=== PATIENT | female | born 1965 | race Hispanic/Latino ===

== ENCOUNTER → 2019-09-04 | Day surgery (SDC) | payer OTHER ==
[~2019-09-04] MED LIST: AMLODIPINE BESYL5 MG PO; ATORVASTATIN CA10 MG PO; DICYCLOMINE HCL10 MG PO; FENTANYL CITRATE/PF 100MCG/2 ML INJ ONE; LOSARTAN POTAS100 MG PO; METOPROLOL TART50 MG PO; MIDAZOLAM HCL 2 MG/2 ML VIAL ONE; NOVOLIN N100 UNIT/1 SQ; PROPOFOL IV EMULSION 10 MG/ML 50 ML VIAL ONE; TRULICITY0.75 MG/0. SQ
--- OUTSIDE RECORDS SUMMARY | 2019-09-04 10:06 | XMS REPORT ---
Author Author Admin, [place] Organization Unknown Address Unknown Phone Unavailable PROBLEMS Condition Status Date Provider Notes Hemoccult positive stool active Patrizia Martel Colon Cancer Screening active Patrizia Martel Dysuria active Patrizia Martel Candidal vaginitis active Patrizia Martel Mammogram yearly screening active Patrizia Martel Annual exam active Patrizia Martel Foot pain, left active Patrizia Martel Obesity active Patrizia Martel Hyperlipidemia active Patrizia Martel Diabetes mellitus, type II active Patrizia Martel Shortness of breath active Patrizia Martel Back pain active Patrizia Martel Allergic rhinitis active Patrizia Martel Hypertension active Patrizia Martel ENCOUNTERS Date Type Provider Location Encounter Diagnosis - Ambulatory Encounter Public Health Services Provider Freda Wren [facility] Services UNK - Ambulatory Encounter Patrizia Martel [facility] UNK - Ambulatory [facility] - Ambulatory Encounter LS[facility] Lab Support [facility] UNK - Ambulatory Encounter Patrizia Martel [facility] UNK - Ambulatory Encounter Patrizia Martel [facility] UNK - Ambulatory Encounter Patrizia Markham [facility] UNK - Ambulatory Encounter Gisselle Short [facility] UNK - Ambulatory Encounter Public Health Services Provider Freda Wren [facility] UNK - Ambulatory Encounter Patrizia Martel [facility] UNK - Ambulatory Encounter Patrizia Martel [facility] UNK - Ambulatory Encounter Gisselle An [facility] UNK - Ambulatory Encounter Public Health Services Provider Freda Wren [facility] UNK - Ambulatory Encounter LSJ Care Coordination Desktop [facility] UNK - Ambulatory Encounter Patrizia Paredes [facility] UNK - Ambulatory Encounter Patrizia Martel [facility] UNK - Ambulatory Encounter Fax Status [facility] UNK - Ambulatory Encounter Fax Status [facility] UNK - Ambulatory Encounter Fax Status [facility] UNK - Ambulatory Encounter Fax Status [facility] UNK - Ambulatory Encounter Fax Status [facility] UNK - Ambulatory Encounter Patrizia Martel [facility] UNK - Ambulatory Encounter Patrizia Waterman [facility] UNK - Ambulatory En[facility] - Ambulatory Encounter Josie Sabas [facility] UNK - Ambulatory Encounter Viki Pallavi Martel [facility] UNK - Ambulatory Encounter Gisselle Derw Pallavi [facility] UNK - Ambulatory Encounter Ashley Markham [facility] UNK - Ambulatory Encounter Patrizia Obregon [facility] Hemoccult positive stool - Ambulatory Encounter Patrizia Martel [facility] UNK - Ambulatory Encounter LSJ Lab Support Desktop [facility] Patrizia Martel [facility] UNK - Ambulatory Encounter Mera [facility] UNK - Ambulatory Encounter Mera [facility] UNK - Ambulatory Encounter Jesica Dee [facility] Adult Medicine UNK - Ambulatory Encounter Patrizia Paredes MedAdherence [facility] UNK - Ambulatory Encounter Patrizia Martel [facility] UNK - Ambulatory Encounter Patrizia Martel [facility] UNK - Ambulatory Encounter Patrizia Martel [facility] UNK - Ambulatory Encounter LSJ Lab Support Desktop [facility] Patrizia Martel [facility] UNK - Ambulatory Encounter LSJ Lab Support Desktop [facility] Patrizia Martel [facility] UNK - Ambulatory Encounter Patrizia Paredes [facility] UNK - Ambulatory Encounter LSJ Lab Support Desktop Dedra Martel [facility] UNK - Ambulatory Encounter Patrizia Martel [facility] UNK - Ambulatory Encounter Patrizia Yanes [facility] Annual examMammogram yearly screeningCandidal vaginitisDysuriaColon Cancer Screening - Ambulatory Encounter Gisselle An [facility] UNK - Ambulatory Encounter Patrizia Martel [facility] UNK - Ambulatory Encounter Patrizia Martel [facility] UNK - Ambulatory Encounter Noemy [facility] UNK - Ambulatory Encounter Noemy [facility] UNK - Ambulatory Encounter Noemy [facility] UNK - Ambulatory Encounter Patrizia Martel [facility] UNK - Ambulatory Encounter Patrizia Martel [facility] UNK - Ambulatory Encounter Patrizia Castelan [facility] UNK - Ambulatory Encounter Pinky Lechuga [facility] UNK - Ambulatory Encounter Pinky Lechuga [facility] UNK - Ambulatory Encounter Patrizia Martel [facility] UNK - Ambulatory Encounter Patrizia Sernarera [facility] Foot pain, left - Ambulatory Encounter Tomeka Tahmina [facility] UNK - Ambulatory Encounter Tomekaviv Martel [facility] UNK - Ambulatory Encounter [facility]counter Patrizia Martel [facility] UNK - Ambulatory Encounter Mary Farias [facility] UNK - Ambulatory Encounter Patrizia Gay [facility] Obesity - Ambulatory Encounter Jen Jarrett [facility] UNK - Ambulatory Encounter [facility] - Ambulatory Encounter Jen Farias [facility] UNK - Ambulatory Encounter Jen Jarrett [facility] UNK - Ambulatory Encounter Patrizia Martel [facility] UNK - Ambulatory Encounter Patrizia Shirley [facility] UNK - Ambulatory Encounter Fax Status [facility] UNK - Ambulatory Encounter Fax Status [facility] UNK - Ambulatory Encounter [facility] - Ambulatory Encounter Patrizia Martel [facility] Hyperlipidemia - Ambulatory Encounter Patrizia Martel [facility] Diabetes mellitus, type II - Ambulatory Encounter Patrizia Martel [facility] UNK - Ambulatory Encounter LSJ Lab Support Desktop LinkDiaz Martel [facility] UNK - Ambulatory Encounter Patrizia Martel [facility] UNK - [facility] HypertensionAllergic rhinitisBack painShortness of breath - Ambulatory Encounter Toshia Saez [facility] UNK - Ambulatory Encounter Pinky Lechuga [facility] UNK - Ambulatory Encounter Pinky Lechuga [facility] UNK - Ambulatory Encounter Jaylin Bills [facility] Adult Medicine UNK - Ambulatory Encounter Jaylin Bills [facility] Adult Medicine UNK - Ambulatory Encounter [facility] Ambulatory Encounter Cheondoism Preload [facility] UNK - Ambulatory Encounter Cheondoism Preload [facility] UNK - Ambulatory Encounter Cheondoism Preload [facility] UNK - Ambulatory Encounter Cheondoism Preload [facility] UNK - Ambulatory Encounter Cheondoism Preload [facility] UNK - Ambulatory Encounter Cheondoism Preload [facility] - Ambulatory Encounter [place] [facility] - Ambulatory Encounter Cheondoism Preload [facility] - Ambulatory Encounter Cheondoism Preload [facility] UNK - Ambulatory Encounter Cheondoism Preload [facility] UNK - Ambulatory Encounter Cheondoism Preload [facility] UNK - Ambulatory Encounter Cheondoism Preload [facility] UNK - Ambulatory Encounter Cheondoism Preload [facility] UNK - Ambulatory Encounter Cheondoism Preload [facility] UNK - Ambulatory Encounter Cheondoism Preload [facility] UNK - Ambulatory Encounter Cheondoism Preload [facility] UNK - Ambulatory Encounter Cheondoism Preload [facility] UNK - Ambulatory Encounter Cheondoism Preload [facility] UNK - Ambulatory Encounter Cheondoism Preload [facility] UNK - Ambulatory Encounter Cheondoism Preload [facility] UNK - Ambulatory Encounter Cheondoism Preload [facility] UNK - Ambulatory Encounter Cheondoism Preload [facility] UNK - Ambulatory Encounter Cheondoism Preload [facility] UNK - Ambulatory Encounter Cheondoism Preload [facility] UNK - Ambulatory Encounter Cheondoism Preload [facility] UNK - Ambulatory Encounter Cheondoism Preload [facility] UNK - Ambulatory Encounter Cheondoism Preload [facility] UNK - Ambulatory Encounter Cheondoism Preload [facility] UNK - Ambulatory Encounter Cheondoism Preload [facility] UNK - Ambulatory Encounter Cheondoism Preload [facility] UNK - Ambulatory Encounter Cheondoism Preload [facility] UNK - Ambulatory Encounter Cheondoism Preload [facility] [place] [facility] UNK - Ambulatory Encounter Cheondoism Preload [facility] UNK - Ambulatory Encounter Cheondoism Preload [facility] UNK - Ambulatory Encounter Cheondoism Preload [facility] UNK - Ambulatory Encounter Cheondoism Preload [facility] UNK - Ambulatory Encounter Cheondoism Preload [facility] UNK - Ambulatory Encounter Cheondoism Preload [facility] UNK - Ambulatory Encounter Cheondoism Preload [facility] UNK - Ambulatory Encounter Cheondoism Preload [facility] UNK - Ambulatory Encounter Cheondoism Preload [facility] UNK - Ambulatory Encounter Cheondoism Preload [facility] UNK - Ambulatory Encounter Cheondoism Preload [facility] UNK - Ambulatory Encounter Cheondoism Preload [facility] UNK - Ambulatory Encounter Cheondoism Preload [facility] UNK - Ambulatory Encounter Cheondoism Preload [facility] [place] [facility] UNK - Ambulatory Encounter Cheondoism Preload [facility] UNK - Ambulatory Encounter Cheondoism Preload [facility] UNK - Ambulatory Encounter Cheondoism Preload [facility] UNK - Ambulatory Encounter Cheondoism Preload [facility] UNK - Ambulatory Encounter Cheondoism Preload [facility] UNK - Ambulatory Encounter Cheondoism Preload [facility] UNK - Ambulatory Encounter Cheondoism Preload [facility] UNK - Ambulatory Encounter Cheondoism Preload [facility] [place] [facility] UNK - Ambulatory Encounter Cheondoism Preload [facility] UNK - Ambulatory Encounter Cheondoism Preload [facility] UNK - Ambulatory Encounter Cheondoism Preload [facility] UNK - Ambulatory Encounter Cheondoism Preload [facility] UNK - Ambulatory Encounter Cheondoism Preload [facility] UNK - Ambulatory Encounter Cheondoism Preload [facility] [place] [facility] UNK - Ambulatory Encounter Cheondoism Preload [facility] UNK - Ambulatory Encounter Cheondoism Preload [facility] UNK - Ambulatory Encounter Cheondoism Preload [facility] UNK - Ambulatory Encounter Cheondoism Preload [facility] UNK - Ambulatory Encounter Cheondoism Preload [facility] UNK - Ambulatory Encounter Cheondoism Preload [facility] UNK - Ambulatory Encounter Cheondoism Preload [facility] UNK - Ambulatory Encounter Cheondoism Preload [facility] UNK - Ambulatory Encounter Cheondoism Preload [facility] UNK - Ambulatory Encounter Cheondoism Preload [facility] UNK - Ambulatory Encounter Cheondoism Preload [facility] UNK - Ambulatory Encounter Cheondoism Preload [facility] UNK - Ambulatory Encounter Cheondoism Preload [facility] UNK - Ambulatory Encounter Cheondoism Preload [facility] UNK - Ambulatory Encounter Cheondoism Preload [facility] UNK - Ambulatory Encounter Cheondoism Preload [facility] UNK - Ambulatory Encounter Cheondoism Preload [facility] UNK - Ambulatory Encounter Cheondoism Preload [facility] UNK - Ambulatory Encounter Cheondoism Preload [facility] UNK - Ambulatory Encounter Cheondoism Preload [facility] UNK - Ambulatory Encounter Cheondoism Preload [facility] UN[facility] VITAL SIGNS No Information Available ALLERGIES Allergy Name Onset Date Reaction Criticality Status ATORVASTATIN leg/muscle pain High Criticality active LOVASTATIN Leg/Muscle Pains High Criticality active REASON FOR REFERRAL Start Date - End Date Service - Endocrinology - Adult - Gastroenterology - External - Mammogram - Screening RESULTS Date Observation Value Provider Reference Range Interpretation Location urine culture Escherichia coli [facility] Abnormal " bacteria, urine microscopy Few [facility] None seen/Few " mucus on urinalysis Present [facility] Not Estab. " cast type, urinalysis Hyaline casts [facility] N/A " casts, urine Present [facility] None seen Abnormal " epithelial cells, urine >10 [facility] 0 - 10 Abnormal " RBC, Urine 0-2 /hpf [facility] 0 - 2 " WBC urine on microscopy >30 /hpf [facility] 0 - 5 Abnormal " urinalysis, microscopic examination See below: [facility] " nitrate, urine Negative [facility] Negative " urobilinogen, urine, semiquantitative (dipstick) 0.2 [facility] 0.2-1.0 " bilirubin, urine Negative [facility] Negative " ketones, urine, by test strip Negative [facility] Negative " glucose, urine, semiquantitative Negative [facility] Negative " protein, urine, semiquantitative (dipstick) Negative [facility] Negative/Trace " leukocyte esterase, urine, by dipstick 3+ [facility] Negative Abnormal " appearance, urine Cloudy [facility] Clear Abnormal " urine color Yellow [facility] Yellow " pH, urine, semiquantitative 5.5 [facility] 5.0-7.5 " specific gravity, body fluid 1.016 [facility] 1.005-1.030 Neisseria gonorrhoeae DNA probe Negative [facility] Negative " chlamydia DNA probe Negative [facility] Negative thyroid stimulating hormone, serum 1.690 u[iU]/mL [facility] 0.450-4.500 " hepatitis C antibody, serum <0.1 [facility] 0.0-0.9 " HIV-CMIA (Chemiluminescent Microparticle Immuno Assay) Non Reactive [facility] Non Reactive " rapid plasma reagin antibody, serum Non Reactive [facility] Non Reactive " hemoglobin A1C, blood, as % of total hemoglobin 11.2 % [facility] 4.8-5.6 High " microalbumin/creatinine ratio, urine 5.2 MG/G CREAT [facility] 0.0-30.0 " microalbumin/total urine volume 3.5 mg/L [facility] Not Estab. " creatinine, random, urine 67.2 mg/dL [facility] Not Estab. " LDL cholesterol, serum 113 mg/dL [facility] 0-99 High " very low density lipoproteins 57 mg/dL [facility] 5-40 High " HDL cholesterol, serum 33 mg/dL [facility] >39 Low " triglyceride, serum, fasting 283 mg/dL [facility] 0-149 High " cholesterol, serum 203 mg/dL [facility] 100-199 High " bacteria, urine microscopy None seen [facility] None seen/Few " mucus on urinalysis Present [facility] Not Estab. " epithelial cells, urine 0-10 [facility] 0 - 10 " RBC, Urine 0-2 /hpf [facility] 0 - 2 " WBC urine on microscopy 0-5 /hpf [facility] 0 - 5 " microscopic exam See below: [facility] " urinalysis, microscopic examination MICRON [facility] " nitrate, urine Negative [facility] Negative " urobilinogen, urine, semiquantitative (dipstick) 0.2 [facility] 0.2-1.0 " bilirubin, urine Negative [facility] Negative " ketones, urine, by test strip Negative [facility] Negative " glucose, urine, semiquantitative 3+ [facility] Negative Abnormal " protein, urine, semiquantitative (dipstick) Negative [facility] Negative/Trace " leukocyte esterase, urine, by dipstick Negative [facility] Negative " appearance, urine Clear [facility] Clear " urine color Yellow [facility] Yellow " pH, urine, semiquantitative 5.5 [facility] 5.0-7.5 " specific gravity, body fluid >=1.030 [facility] 1.005-1.030 Abnormal " alanine aminotransferase (SGPT), serum 28 1/L [facility] 0-32 " aspartate aminotransferase (SGOT), serum 28 1/L [facility] 0-40 " alkaline phosphatase, serum 171 1/L [facility] 39-117 High " bilirubin, serum, total 0.3 mg/dL [facility] 0.0-1.2 " albumin/globulin ratio, serum 1.4 [facility] 1.2-2.2 " globulin, serum 2.8 [facility] 1.5-4.5 " albumin, serum 3.9 g/dL [facility] 3.5-5.5 " protein, total, serum 6.7 g/dL [facility] 6.0-8.5 " calcium, serum 8.7 mg/dL [facility] 8.7-10.2 " carbon dioxide, venous blood 19 mmol/L [facility] 20-29 Low " chloride, serum 107 mmol/L [facility] 96-106 High " potassium, serum 3.7 mmol/L [facility] 3.5-5.2 " sodium, serum 141 mmol/L [facility] 134-144 " urea nitrogen/creatinine ratio, serum 15 [facility] 9-23 " eGFR if 76 mL/min/((173/100).m2) [facility] >59 " Estimated Glomerular Filtration Rate (calc) 66 mL/min/((173/100).m2) [facility] >59 " creatinine, serum 0.97 mg/dL [facility] 0.57-1.00 " urea nitrogen, blood 15 mg/dL [facility] 6-24 " blood glucose, random 277 mg/dL [facility] 65-99 High " immature granulocytes, percentage of total cells, blood 0 % [facility] Not Estab. " basophil count, absolute 0.0 x10E3/uL [facility] 0.0-0.2 " Eosinophil Absolute Count 0.1 X10E3/UL [facility] 0.0-0.4 " monocyte count, blood, automated 0.4 X10E3/UL [facility] 0.1-0.9 " lymphocyte count, blood, automated 2.1 X10E3/UL [facility] 0.7-3.1 " Absolute Neutrophils 5.7 X10E3/UL [facility] 1.4-7.0 " basophils as percent of blood leukocytes 0 % [facility] Not Estab. " eosinophils as percent of blood leukocytes 2 % [facility] Not Estab. " monocytes as percent of blood leukocytes 5 % [facility] Not Estab. " lymphocytes as percent of blood leukocytes 25 % [facility] Not Estab. " neutrophils as percent of blood leukocytes 68 % [facility] Not Estab. " platelet count 225 X10E3/UL [facility] 150-450 " red blood cell distribution width 13.6 % [facility] 12.3-15.4 " mean corpuscular hemoglobin concentration, RBC 32.0 G/DL [facility] 31.5-35.7 " mean corpuscular hemoglobin, RBC 29.3 pg [facility] 26.6-33.0 " mean corpuscular volume, RBC 92 fL [facility] 79-97 " hematocrit, blood 40.0 % [facility] 34.0-46.6 " hemoglobin, blood 12.8 g/dL [facility] 11.1-15.9 " erythrocyte (RBC) count 4.37 X10E6/UL [facility] 3.77-5.28 " leukocyte count, blood 8.4 X10E3/UL [facility] 3.4-10.8 blood glucose, random 225 mg/dL Gabriella Rios blood glucose, random 124 mg/dL [facility] blood glucose, random 137 mg/dL [facility] thyroid stimulating hormone, serum 1.590 u[iU]/mL [facility] 0.450-4.500 " hemoglobin A1C, blood, as % of total hemoglobin 6.6 % [facility] 4.8-5.6 High " microalbumin/creatinine ratio, urine 73.2 MG/G CREAT [facility] 0.0-30.0 High " microalbumin/total urine volume 58.8 mg/L [facility] Not Estab. " creatinine, random, urine 80.3 mg/dL [facility] Not Estab. " LDL cholesterol, serum 145 mg/dL [facility] 0-99 High " very low density lipoproteins 25 mg/dL [facility] 5-40 " HDL cholesterol, serum 43 mg/dL [facility] >39 " triglyceride, serum, fasting 127 mg/dL [facility] 0-149 " cholesterol, serum 213 mg/dL [facility] 100-199 High " alanine aminotransferase (SGPT), serum 35 1/L [facility] 0-32 High " aspartate aminotransferase (SGOT), serum 37 1/L [facility] 0-40 " alkaline phosphatase, serum 125 1/L [facility] 39-117 High " bilirubin, serum, total 0.7 mg/dL [facility] 0.0-1.2 " albumin/globulin ratio, serum 1.5 [facility] 1.1-2.5 " globulin, serum 3.1 [facility] 1.5-4.5 " albumin, serum 4.6 g/dL [facility] 3.5-5.5 " protein, total, serum 7.7 g/dL [facility] 6.0-8.5 " calcium, serum 9.0 mg/dL [facility] 8.7-10.2 " carbon dioxide, venous blood 26 mmol/L [facility] 18-29 " chloride, serum 103 mmol/L [facility] 97-108 " potassium, serum 4.2 mmol/L [facility] 3.5-5.2 " sodium, serum 145 mmol/L [facility] 134-144 High " urea nitrogen/creatinine ratio, serum 16 [facility] 9-23 " eGFR if 121 mL/min/((173/100).m2) [facility] >59 " Estimated Glomerular Filtration Rate (calc) 105 mL/min/((173/100).m2) [facility] >59 " creatinine, serum 0.61 mg/dL [facility] 0.57-1.00 " urea nitrogen, blood 10 mg/dL [facility] 6-24 " blood glucose, random 114 mg/dL [facility] 65-99 High " immature granulocytes, percentage of total cells, blood 0 % [facility] " basophil count, absolute 0.0 x10E3/uL [facility] 0.0-0.2 " Eosinophil Absolute Count 0.2 X10E3/UL [facility] 0.0-0.4 " monocyte count, blood, automated 0.3 X10E3/UL [facility] 0.1-0.9 " lymphocyte count, blood, automated 2.1 X10E3/UL [facility] 0.7-3.1 " Absolute Neutrophils 4.6 X10E3/UL [facility] 1.4-7.0 " basophils as percent of blood leukocytes 0 % [facility] " eosinophils as percent of blood leukocytes 2 % [facility] " monocytes as percent of blood leukocytes 4 % [facility] " lymphocytes as percent of blood leukocytes 29 % [facility] " neutrophils as percent of blood leukocytes 65 % [facility] " platelet count 233 X10E3/UL [facility] 150-379 " red blood cell distribution width 13.8 % [facility] 12.3-15.4 " mean corpuscular hemoglobin concentration, RBC 33.6 G/DL [facility] 31.5-35.7 " mean corpuscular hemoglobin, RBC 31.8 pg [facility] 26.6-33.0 " mean corpuscular volume, RBC 95 fL [facility] 79-97 " hematocrit, blood 42.0 % [facility] 34.0-46.6 " hemoglobin, blood 14.1 g/dL [facility] 11.1-15.9 " erythrocyte (RBC) count 4.44 X10E6/UL [facility] 3.77-5.28 " leukocyte count, blood 7.1 X10E3/UL [facility] 3.4-10.8 HISTORY OF IMMUNIZATIONS No Information Available HISTORY OF MEDICATION USE Medication Instructions Dates Provider Comments BACTRIM DS 800-160 MG ORAL TABLET 1 tab by mouth twice a day for 5 days for UTI Patrizia Martel [facility] OMEGA-3 KRILL OIL 300 MG ORAL CAPSULE 2 tablet by mouth three times daily for cholesterol Patrizia Martel LORATADINE 10 MG ORAL TABLET 1 By Mouth once a day as needed for allergies Patrizia Martel NOVOLIN N 100 UNIT/ML SUBCUTANEOUS SUSPENSION 40 units in the AM and 40 units in the PM for diabetes Patrizia Martel METOPROLOL TARTRATE 50 MG ORAL TABLET 1 by mouth twice a day Patrizia Martel LOTENSIN 10 MG ORAL TABLET 1 By Mouth Every Day - Patrizia Martel AMLODIPINE BESYLATE 5 MG ORAL TABLET 1 tablet by mouth once daily - Patrizia Martel LOVASTATIN 10 MG ORAL TABLET 1 by mouth every night - Patrizia Martel ACCU-CHEK FASTCLIX LANCETS check blood glucose once daily Patrizia Martel ACCU-CHEK FASTCLIX LANCET KIT check blood glucose once daily Patrizia Martel ACCU-CHEK LOUISA IN VITRO STRIP check blood glucose once daily Patrizia Martel ACCU-CHEK LOUISA PLUS w/Device KIT check blood glucose once daily Patrizia Martel METFORMIN HCL ER (MOD) 1000 MG ORAL TABLET EXTENDED RELEASE 24 HOUR 1 tablet by mouth twice daily for diabetes Patrizia Martel PROAIR HFA 108 (90 Base) MCG/ACT INHALATION AEROSOL SOLUTION 2 puffs every 4 - 6 hours as needed Patrizia Martel NAPROXEN DR 500 MG ORAL TABLET DELAYED RELEASE 1 tablet by mouth twice daily as needed for pain - Patrizia Martel LOSARTAN POTASSIUM 100 MG ORAL TABLET 1 tablet by mouth once daily Patrizia Martel HYDROCHLOROTHIAZIDE 25 MG ORAL TABLET 1 tablet by mouth daily - Patrizia Martel SOCIAL HISTORY Date Observation Value Provider drug use, illicit Never Ashley Markham " alcohol use Previously Ashley Markham " social history E&M . Not homeless. Born in [facility]. City: [facility]. State: [place]. Employed full-time. [employer]. Highest education level: none-8th grade. Gender identity: Female. Gender of partner(s): male. Ashley Markham " social history reviewed E&M reviewed today Ashley Rashi " passive cigarette smoke exposure No Ashley Markham " smoking status former smoker Ashley Markham " Exercise Program Referral T Ashley Rashi " Weight Management Counseling Provided T Ashley Markham " Nutrition intervention T Ashley Markham time of call 02/21/2019 9:50 AM Jus Waterman Lung Cancer Screening - 15 year tobacco use history Yes Viki Pallavi Exercise Program Referral T Gabriella Rios " Weight Management Counseling Provided T Gabriella Rios " Nutrition intervention T Gabriella Rios " drug use, illicit Never Gabriella Rios " alcohol use Previously Gabriella Rios " social history E&M . Not homeless. Born in [facility]. City: [facility]. State: [place]. Employed full-time. [employer]. Highest education level: none-8th grade. Gender identity: Female. Gender of partner(s): male. Gabriella Rios " social history reviewed E&M reviewed today Gabriella Rios " passive cigarette smoke exposure No Gabriella Rios " smoking status former smoker Gabriella Rios Exercise Program Referral Yunior Martel " Weight Management Counseling Provided T Patrizia Martel " Nutrition intervention T Patrizia Martel " Patient was counseled for sexual safety Counseled for sexual health safety. Patrizia Martel " is there any chance that you could be ? No Jennifer Peacock " passive cigarette smoke exposure No Jennifer Peacock " alcohol use Previously Jennifer Peacock " smoking status former smoker Jennifer Peacock " social history E&M . Not homeless. Born in [facility]. City: [facility]. State: [place]. Employed full-time. [employer]. Highest education level: none-8th grade. Gender identity: Female. Gender of partner(s): male. Jennifer Peacock " social history reviewed E&M reviewed today Jennifer Peacock " Exercise Program Referral T Gabriella Rios " Weight Management Counseling Provided Yunior Rios " Nutrition intervention T Gabriella Rios " drug use, illicit Never Gabriella Gabriel " alcohol use Previously Gabriella Gabriel " social history E&M . Not homeless. Born in [facility]. City: [facility]. State: [place]. Employed full-time. [employer]. Highest education level: none-8th grade. Gender identity: Female. Gender of partner(s): male. Gabriella Gabriel " social history reviewed E&M reviewed today Gabriella Rios " passive cigarette smoke exposure No Gabriella Rios " smoking status former smoker Gabriella Rios drug use, illicit Never Teresa Gay " alcohol use Currently Teresa Gay " social history E&M . Not homeless. Born in [facility]. City: [facility]. State: [place]. Employed full-time. [employer]. Highest education level: none-8th grade. Gender identity: Female. Gender of partner(s): male. Teresa Gay " social history reviewed E&M reviewed today Teresa Gay " passive cigarette smoke exposure No Teresa Gay " smoking status former smoker Teresa Gay Exercise Program Referral Yunior Martel " Weight Management Counseling Provided Yunior Martel " Nutrition intervention Yunior Martel " drug use, illicit Never Teresa Gay " alcohol use Currently Teresa Gay " social history E&M . Not homeless. Born in [facility]. City: [facility]. State: [place] Employed full-time. [employer]. Highest education level: none-8th grade. Gender identity: Female. Gender of partner(s): male. Teresa Gay " social history reviewed E&M reviewed today Teresa Gay " passive cigarette smoke exposure No Teresa Gay " smoking status former smoker Teresa Gay sex at female Jeannine Shirley " social history E&M . Not homeless. Born in [facility]. City: [facility]. State: [place] Employed full-time. [employer]. Highest education level: none-8th grade. Gender identity: Female. Gender of partner(s): male. Jeannine Shirley " social history reviewed E&M reviewed today Jeannine Shirley " drug use, illicit Never Jeannine Shirley " alcohol use Currently Jeannine Shirley " passive cigarette smoke exposure No Jeannine Shirley " smoking status former smoker Jeannine Shirley social history E&M . Not homeless. Born in [facility]. City: [facility]. State: [place] Employed full-time. [employer]. Highest education level: none-8th grade. Gender identity: Female. Gender of partner(s): male. Gabriella Rios " Occupation #1 cook Gabriella Gabriel " patient considered to be homeless No Gabriella Rios " drug use, illicit Never Gabriella Rios " alcohol use, frequency holidays/special occasions only Gabriella Rios " alcohol use Currently Gabriella Rios " social history reviewed E&M reviewed today Gabriella Rios " passive cigarette smoke exposure No Gabriella Rios " smoking status former smoker Gabriella Rios smoking status Current some day smoker [employer] smoking status Current some day smoker [employer] smoking status Current some day smoker [employer] FUNCTIONAL STATUS No Information Available MENTAL STATUS Date Observation Value Provider assessment of judgment and insight E&M limited Patrizia Martel " mental status examination: orientation E&M oriented to time, place, and person Patrizia Martel " assessment of mood and affect E&M pleasant Patrizia Martel " Generalized Anxiety Disorder Questionnaire - Question 2 0 Ashley Markham " Generalized Anxiety Disorder Questionnaire - Question 1 0 Ashley Markham assessment of judgment and insight E&M limited Patrizia Martel " mental status examination: orientation E&M oriented to time, place, and person Patrizia Martel " assessment of mood and affect E&M pleasant Patrizia Martel " Generalized Anxiety Disorder Questionnaire - Question 2 0 Gabriella Farleyrez " Generalized Anxiety Disorder Questionnaire - Question 1 0 Gabriella Rios assessment of judgment and insight E&M limited Patrizia Martel " mental status examination: orientation E&M oriented to time, place, and person Patrizia Martel " assessment of mood and affect E&M pleasant Patrizia Martel " Generalized Anxiety Disorder Questionnaire - Question 2 0 Jennifer Peacock " Generalized Anxiety Disorder Questionnaire - Question 1 1 Jennifer Peacock assessment of judgment and insight E&M intact Patrizia Martel " mental status examination: orientation E&M oriented to time, place, and person Patrizia Martel " assessment of mood and affect E&M no depression, anxiety, or agitation Patrizia Martel " If any problems checked, how difficult have these problems made it for you to do your work, take care of things at home, or get along with other people (GAD7, question 8) 0 Gabriella Rios " Generalized Anxiety Disorder Questionnaire - Question 7 0 Gabriella Rios " Generalized Anxiety Disorder Questionnaire - Question 6 0 Gabriella Rios " Generalized Anxiety Disorder Questionnaire - Question 5 1 Gabriella Rios " Generalized Anxiety Disorder Questionnaire - Question 4 1 Gabriella Rios " Generalized Anxiety Disorder Questionnaire - Question 3 0 Gabriella Rios " Generalized Anxiety Disorder Questionnaire - Question 2 0 Gabriella Rios " Generalized Anxiety Disorder Questionnaire - Question 1 1 Gabriella Rios assessment of judgment and insight E&M intact Patrizia Martel " assessment of mood and affect E&M no depression, anxiety, or agitation Patrizia Tahmina " Generalized Anxiety Disorder Questionnaire - Question 2 0 Teresa Gay " Generalized Anxiety Disorder Questionnaire - Question 1 0 Teresa Gay assessment of judgment and insight E&M intact Patrizia Martel " assessment of mood and affect E&M no depression, anxiety, or agitation Patrizia Tahmina " Generalized Anxiety Disorder Questionnaire - Question 2 0 Teresa Gay " Generalized Anxiety Disorder Questionnaire - Question 1 0 Teresa Gay assessment of judgment and insight E&M intact Patrizia Martel " assessment of mood and affect E&M no depression, anxiety, or agitation Patrizia Martel " Generalized Anxiety Disorder Questionnaire - Question 2 0 Jeannine Shirley " Generalized Anxiety Disorder Questionnaire - Question 1 0 Jeannine Casper assessment of judgment and insight E&M intact Patrizia Martel " assessment of mood and affect E&M no depression, anxiety, or agitation Patrizia Martel " Generalized Anxiety Disorder Questionnaire - Question 2 0 Gabriella Rios " Generalized Anxiety Disorder Questionnaire - Question 1 0 Gabriella Rios MEDICAL EQUIPMENT No Information Available FAMILY HISTORY No Information Available INSURANCE PROVIDERS Payer name Policy type / Coverage type Covered alliance party ID [employer] Other [id number] Sliding Fee - Cat 3 Commercial insurance company [employer] Other [id number] Sliding Fee Scale Commercial insurance company [id number] ADVANCE DIRECTIVES No Information Available TREATMENT PLAN Date Name Urinalysis Complete w/reflex to Culture Gc/Ct/Trich Urinalysis Complete w/reflex to Culture RPR, Rfx Qn RPR/Confirm TP Pap w/HPV w rflx 16/18/45 (30+) TSH Rfx on Abnormal to Free T4 FIT- Fecal immunoassay test HCV Antibody HIV 1/2 ANTIGEN/ANTIBODY, FOURTH GENERATION W/RFL Microalb/Creat Ratio, Randm Ur Hemoglobin A1c Lipid Panel Comp. Metabolic Panel (14) CBC With Differential/Platelet TSH Microalb/Creat Ratio, Randm Ur Hemoglobin A1c Lipid Panel Comp. Metabolic Panel (14) CBC With Differential/Platelet - - l - Est Patient Exp Problem - 95616 General Patient Education Est Patient Exp Problem - 73520 Nurse/Nurse Coordinator Est Patient Well Exam (40 - 64 Yrs) - 20360 HEMOGLOBIN A1C - In House Glucose Stick Est Patient Exp Problem - 73460 Prescription Assistance (Non-HIV) Est Patient Exp Problem - 46934 Est Patient Exp Problem - 20185 Prescription Assistance Est Patient Exp Problem - 42263 Dental - Internal Vision New Patient Detailed - 76848 HISTORY OF PROCEDURES Procedure Date Procedure Name Provider Procedure Notes Status HEMOGLOBIN A1C - In House Patrizia Martel completed Glucose Stick Patrizia Martel completed GOALS No Information Available HEALTH CONCERNS No Information Available
--- OUTSIDE RECORDS SUMMARY | 2019-09-04 10:07 | XMS REPORT ---
Author Author Admin, Campo Organization Unknown Address Unknown Phone Unavailable PROBLEMS [...] Provider Location Encounter Diagnosis - Ambulatory Encounter [facility] Patrizia Martel [facility] UNK - Ambulatory Encounter Patrizia Markham [facility] UNK - Ambulatory Encounter Gisselle An [facility] UNK - Ambulatory Encounter Public Health Services Provider Freda Wren [facility] UNK - Ambulatory Encounter Patrizia Martel [facility] UNK - Ambulatory Encounter [facility] Encounter LSJ Lab Support Desktop LinkSidneynitin Martel [facility] UNK - Ambulatory Encounter Patrizia Martel [facility] UNK - Ambulatory Encounter Patrizia Martel [facility] UNK - [facility] Encounter Gisselle An [facility] UNK - Ambulatory Encounter Public Health Services Provider Freda Wren [facility] UNK - Ambulatory Encounter Patrizia Martel [facility] UNK - Ambulatory Encounter [facility] - [facility]ulatory Encounter Gisselle An [facility] UNK - Ambulatory Encounter Public Health Services Provider Freda Wren [facility] UNK - Ambulatory Encounter LSJ Care Coordination Desktop [facility] UN[facility] - Ambulatory En[facility] - Ambulatory Encounter Patrizia Martel [facility] UNK - Ambulatory Encounter Fax Status LinkLog[facility] UNK - Ambulatory Encounter Fax Status Link[facility] UNK - Ambulatory Encounter Fax Status [facility] UNK - Ambulatory Encounter Fax Status [facility] UNK - Ambulatory Encounter Fax Status [facility] UNK - Ambulatory Encounter Patrizia Martel [facility] UNK - Ambulatory Encounter Patrizia Gutierrez Waterman [facility] UNK - Ambulatory Encounter Josie Sabas [facility] UNK - Ambulatory Encounter Josie Sabas [facility] UNK - Ambulatory Encounter Viki Martel [facility] UNK - Ambulatory Encounter Gisselle Olivo [facility] UNK - Ambulatory Encounter Ashley Rashi [facility] UNK - Ambulatory Encounter Patrizia Obregon [facility] Hemoccult positive stool - Ambulatory Encounter Patrizia Martel [facility] UNK - Ambulatory Encounter LSJ Lab Support Desktop LinkLog Patrizia Martel [facility] UNK - Ambulatory Encounter Mera Sullivan [facility] UNK - Ambulatory Encounter Mera Sullivan [facility] UNK - Ambulatory Encounter Jesica Dee [facility] Medicine UNK - Ambulatory Encounter [facility]rizia Paredes [facility] - Ambulatory Encounter Patrizia Martel [facility] UNK - Ambulatory Encounter Patrizia Martel [facility] UNK - Ambulatory Encounter Patrizia Martel [facility] UNK - Ambulatory Encounter LSJ Lab Support Desktop LinkDiaz Martel [facility] UNK - Ambulatory Encounter LSJ Lab Support Desktop LinkSidneyic Patrizia Matrel [facility] UNK - Ambulatory En[facility]aredes [facility] - Ambulatory Encounter LSJ Lab Support Desktop LinkLogic Patrizia Martel [facility] UNK - Ambulatory Encounter Patrizia Martel [facility] UNK - Ambulatory Encounter Patrizia Yanes [facility] Annual examMammogram yearly screeningCandidal vaginitisDysuriaColon Cancer Screening - Ambulatory Encounter Gisselle An [facility] UNK - Ambulatory Encounter Patrizia Martel [facility] UNK - Ambulatory Encounter Patrizia Martel [facility] UNK - Ambulatory Encounter Noemy Salcedolory [facility] UNK - Ambulatory Encounter Noemy Salcedolory [facility] UNK - Ambulatory Encounter Noemy Salcedolory [facility] UNK - Ambulatory Encounter Patrizia Martel [facility] UNK - Ambulatory Encounter Patrizia Martel [facility] UNK - Ambulatory Encounter Patrizia Puentelory [facility] UNK - Ambulatory Encounter Pinky Lechuga [facility] UNK - Ambulatory Encounter Pinky Lechuga [facility] UNK - Ambulatory Encounter Patrizia Martel [facility] UNK - Amb[facility] Foot pain, left - Ambulatory Encounter Tomekaviv Martel [facility] UNK - Ambulatory Encounter Tomeka Tahmina [facility] UNK - Ambulatory Encounter Patrizia Mart[facility] - Ambulatory Encounter Patrizia Martel [facility] UNK - Ambulatory Encounter Mary Farias [facility] UNK - Ambulatory Encounter Patrizia Gay [facility] Obesity - Ambulatory Encounter Jen Farias [facility] UNK - Ambulatory Encounter Patrizia Martel [facility] - Ambulatory Encounter Jen Jarrett [facility] UNK - Ambulatory Encounter Jen Jarrett [facility] UNK - Ambulatory Encounter Patrizia Martel [facility] UNK - Ambulatory Encounter Patrizia Shirley [facility] UNK - Ambulatory Encounter Fax Status [facility] UNK - Ambulatory Encounter Fax Status [facility] UNK - Ambulatory Encounter Fax Status [facility] UNK - Ambulatory Encounter Patrizia Martel [facility] Hyperlipidemia - Ambulatory Encounter Patrizia Martel [facility] Diabetes mellitus, type II - Ambulatory Encounter Patrizia Martel [facility] UNK - Ambulatory Encounter LSJ Lab Support Desktop [facility] Patrizia Martel [facility] UNK - Ambulatory Encounter Patrizia Martel [facility] UNK - Ambulatory Encounter Patrizia Rios [facility] HypertensionAllergic rhinitisBack painShortness of breath - Ambulatory Encounter Toshia Saez [facility] UNK - Ambulatory Encounter Pinky Lechuga [facility] UNK - Ambulatory Encounter Pinky Lechuga [facility] UNK - Ambulatory Encounter Jaylin Bills [facility] Adult Medicine UNK - Ambulatory Encounter Jaylin Bills [facility] Adult Medicine UNK - Ambulatory Encounter Maria Simomns [facility] UNK - Ambulatory Encounter L[facility] - Ambulatory Encounter [facility] UNK - Ambulatory Encounter [facility] UNK - Ambulatory Encounter [facility] Preload [facility] UNK - Ambulatory Encounter Latter-Day Preload [facility] UNK - Ambulatory Encounter Latter-Day Preload LinkLogic [facility] UNK - Ambulatory Encounter Latter-Day Preload [facility]Log[facility] UNK - Ambulatory Encounter Latter-Day Preload [facility] UNK - Ambulatory Encounter Latter-Day Preload [facility] UNK - Ambulatory Encounter Latter-Day Preload [facility] UNK - Ambulatory Encounter Latter-Day Preload [facility] UNK - Ambulatory Encounter Latter-Day Preload [facility] UNK - Ambulatory Encounter Latter-Day Preload [facility]Log[facility] UNK - Ambulatory Encounter Latter-Day Preload [facility] UNK - Ambulatory Encounter Latter-Day Preload [facility] UNK - Ambulatory Encounter Latter-Day Preload [facility] UNK - Ambulatory Encounter Latter-Day Preload [facility] UNK - Ambulatory Encounter Latter-Day Preload [facility] UNK - Ambulatory Encounter Latter-Day Preload [facility] UNK - Ambulatory Encounter Latter-Day Preload [facility] UNK - Ambulatory Encounter Latter-Day Preload [facility] UNK - Ambulatory Encounter Latter-Day Preload [facility] UNK - Ambulatory Encounter Latter-Day Preload [facility] UNK - Ambulatory Encounter Latter-Day Preload [facility]Log[facility] UNK - Ambulatory Encounter Latter-Day Preload [facility] UNK - Ambulatory Encounter Latter-Day Preload [facility]Logic [facility] UNK - Ambulatory Encounter Latter-Day Preload [facility]ic [facility] UNK - Ambulatory Encounter Latter-Day Preload [facility]ic [facility] UNK - Ambulatory Encounter Latter-Day Preload LinkLogic [facility] UNK - Ambulatory Encounter Latter-Day Preload LinkLogic [facility] UNK - Ambulatory Encounter Latter-Day Preload LinkLogic [facility] UNK - Ambulatory Encounter Latter-Day Preload [facility] UNK - Ambulatory Encounter Latter-Day Preload LinkLogic [facility] UNK - Ambulatory Encounter Latter-Day Preload LinkLogic [facility] UNK - Ambulatory Encounter Latter-Day Preload LinkLogic [facility] UNK - Ambulatory Encounter Latter-Day Preload LinkLogic [facility] UNK - Ambulatory Encounter Latter-Day Preload LinkLogic [facility] UNK - Ambulatory Encounter Latter-Day Preload LinkLogic [facility] UNK - Ambulatory Encounter Latter-Day Preload LinkLogic [facility] UNK - Ambulatory Encounter Latter-Day Preload LinkLogic [facility] UNK - Ambulatory Encounter Latter-Day Preload LinkLogic [facility] UNK - Ambulatory Encounter Latter-Day Preload [facility]Logic [facility] UNK - Ambulatory Encounter Latter-Day Preload LinkLogic [facility] UNK - Ambulatory Encounter Latter-Day Preload [facility] UNK - Ambulatory Encounter Latter-Day Preload [facility]Logic [facility] UNK - Ambulatory Encounter Latter-Day Preload LinkLogic [facility] UNK - Ambulatory Encounter Latter-Day Preload [facility]Logic [facility] UNK - Ambulatory Encounter Latter-Day Preload [facility] UNK - Ambulatory Encounter Latter-Day Preload LinkLogic [facility] UNK - Ambulatory Encounter Latter-Day Preload [facility] UNK - Ambulatory Encounter Latter-Day Preload [facility] UNK - Ambulatory Encounter Latter-Day Preload Link[facility]ic [facility] UNK - Ambulatory Encounter Latter-Day Preload LinkLogic [facility] UNK - Ambulatory Encounter Latter-Day Preload LinkLogic [facility] UNK - Ambulatory Encounter Latter-Day Preload [facility] UNK - Ambulatory Encounter Latter-Day Preload Link[facility]ic [facility] UNK - Ambulatory Encounter Latter-Day Preload [facility] UNK - Ambulatory Encounter Latter-Day Preload [facility] UNK - Ambulatory Encounter Latter-Day Preload [facility] UNK - Ambulatory Encounter Latter-Day Preload [facility] UNK - Ambulatory Encounter Latter-Day Preload [facility] UNK - Ambulatory Encounter Latter-Day Preload [facility] UNK - Ambulatory Encounter Latter-Day Preload [facility] UNK - Ambulatory Encounter Latter-Day Preload [facility]Log[facility] UNK - Ambulatory Encounter Latter-Day Preload LinkLogic [facility] UNK - Ambulatory Encounter Latter-Day Preload [facility] UNK - Ambulatory Encounter Latter-Day Preload [facility] UNK - Ambulatory Encounter Latter-Day Preload [facility] UNK - Ambulatory Encounter Latter-Day Preload [facility]Log[facility] UNK - Ambulatory Encounter Latter-Day Preload [facility]Log[facility] UNK - Ambulatory Encounter Latter-Day Preload [facility] UNK - Ambulatory Encounter Latter-Day Preload [facility] UNK - Ambulatory Encounter Latter-Day Preload [facility] UNK - Ambulatory Encounter Latter-Day Preload [facility] UNK - Ambulatory Encounter Latter-Day Preload [facility]Log[facility] UNK - Ambulatory Encounter Latter-Day Preload [facility] UNK - Ambulatory Encounter Latter-Day Preload [facility] UNK - Ambulatory Encounter Latter-Day Preload [facility] UNK - Ambulatory Encounter Latter-Day Preload [facility] UNK - Ambulatory Encounter Latter-Day Preload [facility] UNK - Ambulatory Encounter Latter-Day Preload [facility] UNK VITAL SIGNS No Information Available ALLERGIES Allergy Name Onset Date Reaction Criticality Status ATORVASTATIN leg/muscle pain High Criticality active LOVASTATIN Leg/Muscle Pains High Criticality active REASON FOR REFERRAL Start Date - End Date Service - Endocrinology - Adult - Gastroenterology - External - Mammogram - Screening RESULTS Date Observation Value Provider Reference Range Interpretation Location hemoglobin A1C, blood, as % of total hemoglobin 10.8 % [facility] 4.8-5.6 High " alanine aminotransferase (SGPT), serum 22 1/L [facility] 0-32 " aspartate aminotransferase (SGOT), serum 21 1/L [facility] 0-40 " alkaline phosphatase, serum 153 1/L [facility] 39-117 High " bilirubin, serum, total 0.2 mg/dL [facility] 0.0-1.2 " albumin/globulin ratio, serum 1.2 [facility] 1.2-2.2 " globulin, serum 3.3 [facility] 1.5-4.5 " albumin, serum 3.9 g/dL [facility] 3.5-5.5 " protein, total, serum 7.2 g/dL [facility] 6.0-8.5 " calcium, serum 9.5 mg/dL [facility] 8.7-10.2 " carbon dioxide, venous blood 22 mmol/L [facility] 20-29 " chloride, serum 101 mmol/L [facility] 96-106 " potassium, serum 4.2 mmol/L [facility] 3.5-5.2 " sodium, serum 140 mmol/L [facility] 134-144 " urea nitrogen/creatinine ratio, serum 18 [facility] 9-23 " eGFR if 77 mL/min/((173/100).m2) [facility] >59 " Estimated Glomerular Filtration Rate (calc) 67 mL/min/((173/100).m2) [facility] >59 " creatinine, serum 0.95 mg/dL [facility] 0.57-1.00 " urea nitrogen, blood 17 mg/dL [facility] 6-24 " blood glucose, random 248 mg/dL [facility] 65-99 High blood glucose, random 291 mg/dL Elaine Pool urine culture Escherichia coli [facility] Abnormal " [...] Gabriella Rios blood glucose, random 124 mg/dL [facility] blood glucose, random 137 mg/dL [facility] thyroid stimulating hormone, serum [...] MEDICATION USE Medication Instructions Dates Provider Comments VASCEPA 1 GM ORAL CAPSULE 1 tablet by mouth twice daily for cholesterol Patrizia Martel BACTRIM DS 800-160 MG ORAL TABLET 1 tab by mouth twice a day for 5 days for UTI - Patrizia Martel [facility] OMEGA-3 KRILL OIL 300 MG ORAL CAPSULE 2 tablet by mouth three times daily for cholesterol Patrizia Martel LORATADINE 10 MG ORAL TABLET 1 By Mouth once a day as needed for allergies Patrizia Martel NOVOLIN N 100 UNIT/ML SUBCUTANEOUS SUSPENSION 45 units in the AM and 45 units in the PM for diabetes Patrizia Mratel METOPROLOL TARTRATE 100 MG ORAL TABLET 1 by mouth twice a day for blood pressure Patrizia Martel LOTENSIN 10 MG ORAL TABLET [...] tablet by mouth twice daily for diabetes - Patrizia Martel PROAIR HFA 108 (90 Base) [...] history E&M . Not homeless. Born in [facility]. City: [facility]. State: [place]. Employed full-time. [employer]. Highest education level: none-8th grade. Gender identity: Female. Gender of partner(s): male. Ashley Markham " social history reviewed E&M reviewed today Ashley Markham " passive cigarette smoke exposure No Ashley Markham " smoking status former smoker Ashley Markham " Exercise Program Referral T Ashley Markham " Weight Management Counseling Provided T Ashley Markham " Nutrition intervention T Ashley Markham drug use, illicit Never Ashley Markham " alcohol use Previously Ashley Markham " social history E&M . Not homeless. Born in [facility]. City: [facility]. State: [place] Employed full-time. [employer]. Highest education level: none-8th grade. Gender identity: Female. Gender of partner(s): male. Ashley Markham " social history reviewed E&M reviewed today Ashley Markham " passive cigarette smoke exposure No Ashley Markham " smoking status former smoker Ashley Markham " Exercise Program Referral T Ashley Markham " Weight Management Counseling Provided T Ashley Markham " Nutrition intervention T Ashley Markham time of call 02/21/2019 9:50 AM Jus Waterman Lung Cancer Screening - 15 year tobacco use history Yes Viki Olivo Exercise Program Referral T Gabriella Rios " Weight Management Counseling Provided T Gabriella Gabriel " Nutrition intervention T Gabriella Rios " drug use, illicit Never Gabriella Rios " alcohol use Previously Gabriella Rios " social history E&M . Not homeless. Born in [facility]. City: [facility]. State: [place]. Employed full-time. [employer]. Highest education level: none-8th grade. Gender identity: Female. Gender of partner(s): male. Gabriella Rios " social history reviewed E&M reviewed today Gabriella Rios " passive cigarette smoke exposure No Gabriella Gabriel " smoking status former smoker Gabriella Rios Exercise Program Referral T Patrizia Martel " Weight Management Counseling Provided Yunior Martel " Nutrition intervention Yunior Martel " Patient was counseled for sexual safety Counseled for sexual health safety. Patrizia Martel " is there any chance that you could be ? No Jennifer Peacock " passive cigarette smoke exposure No Jennifermelinda Peacock " alcohol use Previously Jennifer Peacock " smoking status former smoker Jennifer Peacock " social history E&M . Not homeless. Born in [facility]. City: [facility]. State: [place] Employed full-time. [employer]. Highest education level: none-8th grade. Gender identity: Female. Gender of partner(s): male. Jennifer Peacock " social history reviewed E&M reviewed today Jennifer Peacock " Exercise Program Referral T Gabriella Rios " Weight Management Counseling Provided T Gabriella Gabriel " Nutrition intervention T Gabriella Gabriel " drug use, illicit Never Gabriella Rios " alcohol use Previously Gabriella Rios " social history E&M . Not homeless. Born in [facility]. City: [facility]. State: [place] Employed full-time. [employer]. Highest education level: none-8th grade. Gender identity: Female. Gender of partner(s): male. Gabriella Rios " social history reviewed E&M reviewed today Gabriella Rios " passive cigarette smoke exposure No Gabriella Gabriel " smoking status former smoker Gabriella Rios drug use, illicit Never Teresa Gay " alcohol use Currently Teresa Gay " social history E&M . Not homeless. Born in [facility]. City: [facility]. State: [place] Employed full-time. [employer]. Highest education level: none-8th grade. Gender identity: Female. Gender of partner(s): male. Teresa Gay " social history reviewed E&M reviewed today Teresa Gay " passive cigarette smoke exposure No Teresa Gay " smoking status former smoker Teresa Sernarera Exercise Program Referral Yunior Martel " Weight Management Counseling Provided Yunior Martel " Nutrition intervention Yunior Martel " drug use, illicit Never Teresa Gay " alcohol use Currently Teresa Gay " social history E&M . Not homeless. Born in [facility]. City: [facility]. State: [place] Employed full-time. [employer]. Highest education level: none-8th grade. Gender identity: Female. Gender of partner(s): male. Teresa Gay " social history reviewed E&M reviewed today Teresa Gay " passive cigarette smoke exposure No Teresa Gay " smoking status former smoker Teresa Martinra sex at female Jeannine Shirley " social history E&M . Not homeless. Born in [facility]. City: [facility]. State: [place] Employed full-time. [employer]. Highest education level: none-8th grade. Gender identity: Female. Gender of partner(s): male. Jeannine Shirley " social history reviewed E&M reviewed today Jeannine Shirley " drug use, illicit Never Jeannine Casper " alcohol use Currently Jeannine Casper " passive cigarette smoke exposure No Jeannine Casper " smoking status former smoker Jeannine Casper social history E&M . Not homeless. Born in [facility]. City: [facility]. State: [place] Employed full-time. [employer]. Highest education level: none-8th grade. Gender identity: Female. Gender of partner(s): male. 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 No [...] [facility] smoking status Current some day smoker LinkLog smoking status Current some day smoker [facility] FUNCTIONAL STATUS No Information Available MENTAL STATUS Date Observation Value Provider assessment of mood and affect E&M pleasant Patrizia Tahmina " mental status examination: orientation E&M oriented to time, place, and person Patrizia Tahmina " assessment of judgment and insight E&M limited Patrizia Tahmina " Generalized Anxiety Disorder Questionnaire - Question 2 0 Ashley Markham " Generalized Anxiety Disorder Questionnaire - Question 1 0 Ashley Markham assessment of judgment and insight E&M limited Patrizia Tahmina " mental status examination: orientation E&M oriented to time, place, and person Patrizia Tahmina " assessment of mood and affect E&M pleasant Patrizia Tahmina " Generalized Anxiety Disorder Questionnaire - Question 2 0 Ashley Markham " Generalized Anxiety Disorder Questionnaire - Question 1 0 Ashley Markham assessment of judgment and insight E&M limited Patrizia Tahmina " mental status examination: orientation E&M oriented to time, place, and person Patrizia Tahmina " assessment of mood and affect E&M pleasant Patrizia Tahmina " Generalized Anxiety Disorder Questionnaire - Question 2 0 Gabriella Rios " Generalized Anxiety Disorder Questionnaire - Question 1 0 Gabriella Rios assessment of judgment and insight E&M limited Patrizia Tahmina " mental status examination: orientation E&M oriented to time, place, and person Patrizia Tahmina " assessment of mood and affect E&M pleasant Patrizia Tahmina " Generalized Anxiety Disorder Questionnaire - Question 2 0 Jennifer Peacock " Generalized Anxiety Disorder Questionnaire - Question 1 1 Jennifer Peacock assessment of judgment and insight E&M intact Patrizia Tahmina " mental status examination: orientation E&M oriented to time, place, and person Patrizia Tahmina " assessment of mood and affect E&M no depression, anxiety, or agitation Patrizia Tahmina " If any problems checked, how difficult have these problems made it for you to do your work, take care of things at home, or get along with other people (GAD7, question 8) 0 Gabriellauri Rios " Generalized Anxiety Disorder Questionnaire - Question 7 0 Gabrielaluri Rios " Generalized Anxiety Disorder Questionnaire - Question 6 0 Gabriellauri Rios " Generalized Anxiety Disorder Questionnaire - Question 5 1 Gabriella Rios " Generalized Anxiety Disorder Questionnaire - Question 4 1 Gabriella Rios " Generalized Anxiety Disorder Questionnaire - Question 3 0 Gabriellauri Rios " Generalized Anxiety Disorder Questionnaire - Question 2 0 Gabriella Rios " Generalized Anxiety Disorder Questionnaire - Question 1 1 Gabriella Rios assessment of judgment and insight E&M intact Patrizia Martel " assessment of mood and affect E&M no depression, anxiety, or agitation Patrizia Martel " Generalized Anxiety Disorder Questionnaire - Question 2 0 Teresa Victor Hugo " Generalized Anxiety Disorder Questionnaire - Question 1 0 Teresa Victor Hugo assessment of judgment and insight E&M intact Patrizia Tahmina " assessment of mood and affect E&M no depression, anxiety, or agitation Patrizia Martel " Generalized Anxiety Disorder Questionnaire - Question 2 0 Teresa Gay " Generalized Anxiety Disorder Questionnaire - Question 1 0 Teresa Gay assessment of judgment and insight E&M intact Patrizia Tahmina " assessment of mood and affect E&M no depression, anxiety, or agitation Patrizia Martel " Generalized Anxiety Disorder Questionnaire - Question 2 0 Jeannine Shirley " Generalized Anxiety Disorder Questionnaire - Question 1 0 Jeannine Shirley assessment of judgment and insight E&M intact Patrizia Tahmina " assessment of mood and affect E&M no depression, anxiety, or agitation Patrizia Martel " Generalized Anxiety Disorder Questionnaire - Question 2 0 Gabriella Rios " Generalized Anxiety Disorder Questionnaire - Question 1 0 Gabriella Rios MEDICAL EQUIPMENT No Information Available FAMILY HISTORY No Information Available INSURANCE PROVIDERS Payer name Policy type / Coverage type Covered democrat ID [employer] [facility] [employer] [facility] [employer] Other [id number] Sliding Fee - Cat 3 Commercial insurance company [employer] Other [id number] Sliding Fee Scale Commercial insurance company [id number] ADVANCE DIRECTIVES No Information Available TREATMENT PLAN Date Name Hemoglobin A1c Comp. Metabolic Panel (14) Urinalysis Complete w/reflex to Culture Gc/Ct/Trich Urinalysis [...] l - Est Patient Exp Problem - 06474 Est Patient Exp Problem - 21725 General Patient Education Est Patient Exp Problem - 37537 Nurse/Nurse Coordinator Est Patient Well Exam (40 - 64 Yrs) - 76139 HEMOGLOBIN A1C - In House Glucose Stick Est Patient Exp Problem - 40197 Prescription Assistance (Non-HIV) Est Patient Exp Problem - 21284 Est Patient Exp Problem - 69035 Prescription Assistance Est Patient Exp Problem - 25633 Dental - Internal Vision New Patient Detailed - 35414 HISTORY OF PROCEDURES Procedure Date Procedure Name Provider Procedure Notes Status HEMOGLOBIN A1C - In House Patrizia Martel completed Glucose Stick Patrizia Martel completed GOALS No Information Available HEALTH CONCERNS No Information Available
--- OUTSIDE RECORDS SUMMARY | 2019-09-04 10:07 | XMS REPORT ---
Author Author Admin, Dalton Organization Unknown Address Unknown Phone Unavailable PROBLEMS [...] Provider Location Encounter Diagnosis - Ambulatory Encounter Patrizia Martel [facility] UNK - Ambulatory Encounter LSJ Lab Support Desktop LinkLogic Patrizia Martel [facility] UNK - Ambulatory Encounter Patrizia Martel [facility] UNK - Ambulatory Encounter Patrizia Markham [facility] UNK - Ambulatory Encounter Gisselle An [facility] UNK - Ambulatory Encounter Public Health Services Provider Freda Wren [facility] UNK - Ambulatory Encounter Patrizia Martel [facility] UNK - Ambulatory Encounter Patrizia Colmenares [facility] UNK - Ambulatory Encounter LSJ Lab Support Desktop Dedra Martel [facility] UNK - Ambulatory Encounter Patrizia Martel [facility] UNK - Ambulatory Encounter Patrizia Martel [facility] UNK - Ambulatory Encounter Patrizia Markham [facility] UNK - Ambulatory Encounter Gisselle An [facility] UNK - Ambulatory Encounter Public Health Services Provider Freda Wren [facility] Services UNK - Ambulatory Encounter Patrizia Martel [facility] UNK - Ambulatory [facility] - Ambulatory Encounter Gisselle An [facility] UNK - Ambulatory Encounter Public Health Services Provider Freda Wren [facility] UNK - Ambulatory Encounter LSJ Care Coordination Desktop Jennifer Waterman [facility] UNK - Ambulatory Encounter Patrizia Paredes [facility] UNK - Ambulatory Encounter [facility]el [facility] - [facility] - Ambulatory Encounter Fax Status LinkLogic [facility] UNK - Ambulatory Encounter [facility] - Ambulatory Encounter Fax Status [facility] UNK - Ambulatory Encounter Patrizia Martel [facility] UNK - Ambulatory Encounter Patrizia Waterman [facility] UNK - Ambulatory Encounter Jsoie Sabas [facility] UNK - Ambulatory Encounter Josie Sabas [facility] UNK - Ambulatory Encounter Viki Martel [facility] UNK - Ambulatory Encounter Gisselle Olivo [facility] UNK - Ambulatory Encounter Ashley Rashi [facility] UNK - Ambulatory Encounter Patrizia Obregon [facility] Hemoccult positive stool - Ambulatory Encounter Patrizia Martel [facility] UNK - Ambulatory Encounter LSJ Lab Support Desktop LinkLogic Patrizia Martel [facility] UNK - Ambulatory Encounter Mera Sullivan [facility] UNK - Ambulatory Encounter Mera Sullivan [facility] UNK - Ambulatory Encounter Jesica Dee [facility] UNK - Ambulatory Encounter [facility] - Ambulatory Encounter Patrizia Martel [facility] UNK - Ambulatory Encounter Patrizia Martel [facility] UNK - Ambulatory Encounter Patrizia Martel [facility] UNK - Ambulatory Encounter LSJ Lab Support Desktop LinkSidneyic Patrizia Martel [facility] UNK - Ambulatory Encounter LSJ Lab Support Desktop LinkLogic Patrizia Martel [facility] UNK - Ambulatory Encounter [facility]aredes [facility] UNK - Ambulatory Encounter LSJ Lab Support Desktop LinkLogic Patrizia Martel [facility] UNK - Ambulatory Encounter Patrizia Martel [facility] UNK - Ambulatory Encounter Patrizia Yanes [facility] Annual examMammogram yearly screeningCandidal vaginitisDysuriaColon Cancer Screening - Ambulatory Encounter Gisselle Juve [facility] UNK - Ambulatory Encounter [facility] En[facility] - Ambulatory Encounter Noemy [facility] UNK - [facility] - [facility] - [facility]ulatory Encounter [facility] - Ambulatory Encounter Patrizia Martel [facility] UNK - Ambulatory Encounter Patrizia Castelan [facility] UNK - Ambulatory Encounter Pinky Lechuga [facility] UNK - Ambulatory Encounter Pinky Lechuga [facility] UNK - Ambulatory Encounter Patrizia Martel [facility] UNK - Ambulatory Encounter Patrizia Moore [facility] Foot pain, left - Ambulatory Encounter Tomeka Martel [facility] UNK - Ambulatory Encounter Tomeka Martel [facility] UNK - Ambulatory Encounter Patrizia Martel [facility] UNK - Ambulatory Encounter Patrizia Martel [facility] UNK - Ambulatory Encounter Evernoemi Jarrett [facility] UNK - Ambulatory Encounter Patrizia Gay [facility] Obesity - Ambulatory Encounter Jen Jarrett [facility] UNK - Ambulatory Encounter Patrizia Martel [facility] UNK - Ambulatory Encounter Jen Jarrett [facility] UNK - Ambulatory Encounter Jen Jarrett [facility] UNK - Ambulatory Encounter Patrizia Martel [facility] UNK - Ambulatory Encounter Patrizia Shirley [facility] UNK - Ambulatory Encounter Fax Status [facility] UNK - Ambulatory Encounter [facility] UNK - Ambulatory Encounter Fax Status [facility] UNK - Ambulatory Encounter Patrizia Martel [facility] Hyperlipidemia - Ambulatory Encounter Patrizia Martel [facility] Diabetes mellitus, type II - Ambulatory Encounter Patrizia Martel [facility] UNK - Ambulatory Encounter LSJ Lab Support Desktop Dedra Martel [facility] UNK - Ambulatory Encounter Patrizia Martel [facility] UNK - Amb[facility] HypertensionAllergic rhinitisBack painShortness of breath - Ambulatory Encounter Toshia Saez [facility] UNK - Ambulatory Encounter Pinky Lechuga [facility] UNK - Ambulatory Encounter Pinky Lechuga [facility] UNK - Ambulatory Encounter Jaylin Bills [facility] Adult [facility] UNK - Ambulatory Encounter Jaylin Bills [facility] Adult [facility] UNK - Ambulatory Encounter Maria Simmons [facility] UNK - Ambulatory Encounter Jehovah'S Witness Preload [facility] UNK - Ambulatory Encounter Jehovah'S Witness Preload [facility] UNK - Ambulatory Encounter Jehovah'S Witness Preload [facility] UNK - Ambulatory Encounter Jehovah'S Witness Preload LinkLogic [place] [facility] UNK - Ambulatory Encounter Jehovah'S Witness Preload LinkLogic [place] [facility] UNK - Ambulatory Encounter Jehovah'S Witness Preload LinkLogic [place] [facility] UNK - Ambulatory Encounter Jehovah'S Witness Preload LinkLogic [place] [facility] UNK - Ambulatory Encounter Jehovah'S Witness Preload LinkLogic [place] [facility] UNK - Ambulatory Encounter Jehovah'S Witness Preload LinkLogic [place] [facility] UNK - Ambulatory Encounter Jehovah'S Witness Preload LinkLogic [facility] UNK - Ambulatory Encounter Jehovah'S Witness Preload LinkLogic [facility] UNK - Ambulatory Encounter Jehovah'S Witness Preload LinkLogic [place] [facility] UNK - Ambulatory Encounter Jehovah'S Witness Preload LinkLogic [facility] UNK - Ambulatory Encounter Jehovah'S Witness Preload LinkLogic [facility] UNK - Ambulatory Encounter Jehovah'S Witness Preload LinkLogic [facility] UNK - Ambulatory Encounter Jehovah'S Witness Preload LinkLogic [place] [facility] UNK - Ambulatory Encounter Jehovah'S Witness Preload LinkLogic [place] [facility] UNK - Ambulatory Encounter Jehovah'S Witness Preload LinkLogic [facility] UNK - Ambulatory Encounter Jehovah'S Witness Preload LinkLogic [facility] UNK - Ambulatory Encounter Jehovah'S Witness Preload LinkLogic [facility] UNK - Ambulatory Encounter Jehovah'S Witness Preload LinkLogic [facility] UNK - Ambulatory Encounter Jehovah'S Witness Preload LinkLogic [place] [facility] UNK - Ambulatory Encounter Jehovah'S Witness Preload LinkLogic [place] [facility] UNK - Ambulatory Encounter Jehovah'S Witness Preload LinkLogic [place] [facility] UNK - Ambulatory Encounter Jehovah'S Witness Preload LinkLogic [place] [facility] UNK - Ambulatory Encounter Jehovah'S Witness Preload LinkLogic [place] [facility] UNK - Ambulatory Encounter Jehovah'S Witness Preload LinkLogic [place] [facility] UNK - Ambulatory Encounter Jehovah'S Witness Preload LinkLogic [place] [facility] UNK - Ambulatory Encounter Jehovah'S Witness Preload LinkLogic [facility] UNK - Ambulatory Encounter Jehovah'S Witness Preload LinkLogic [place] [facility] UNK - Ambulatory Encounter Jehovah'S Witness Preload LinkLogic [place] [facility] UNK - Ambulatory Encounter Jehovah'S Witness Preload LinkLogic [place] [facility] UNK - Ambulatory Encounter Jehovah'S Witness Preload LinkLogic [facility] UNK - Ambulatory Encounter Jehovah'S Witness Preload LinkLogic [facility] UNK - Ambulatory Encounter Jehovah'S Witness Preload LinkLogic [place] [facility] UNK - Ambulatory Encounter Jehovah'S Witness Preload LinkLogic [place] [facility] UNK - Ambulatory Encounter Jehovah'S Witness Preload LinkLogic [place] [facility] UNK - Ambulatory Encounter Jehovah'S Witness Preload LinkLogic [facility] UNK - Ambulatory Encounter Jehovah'S Witness Preload LinkLogic [facility] UNK - Ambulatory Encounter Jehovah'S Witness Preload LinkLogic [facility] UNK - Ambulatory Encounter Jehovah'S Witness Preload LinkLogic [place] [facility] UNK - Ambulatory Encounter Jehovah'S Witness Preload LinkLogic [place] [facility] UNK - Ambulatory Encounter Jehovah'S Witness Preload LinkLogic [place] [facility] UNK - Ambulatory Encounter Jehovah'S Witness Preload LinkLogic [place] [facility] UNK - Ambulatory Encounter Jehovah'S Witness Preload LinkLogic [place] [facility] UNK - Ambulatory Encounter Jehovah'S Witness Preload LinkLogic [place] [facility] UNK - Ambulatory Encounter Jehovah'S Witness Preload LinkLogic [place] [facility] UNK - Ambulatory Encounter Jehovah'S Witness Preload LinkLogic [place] [facility] UNK - Ambulatory Encounter Jehovah'S Witness Preload LinkLogic [place] [facility] UNK - Ambulatory Encounter Jehovah'S Witness Preload LinkLogic [place] [facility] UNK - Ambulatory Encounter Jehovah'S Witness Preload LinkLogic [facility] UNK - Ambulatory Encounter Jehovah'S Witness Preload LinkLogic [place] [facility] UNK - Ambulatory Encounter Jehovah'S Witness Preload LinkLogic [place] [facility] UNK - Ambulatory Encounter Jehovah'S Witness Preload LinkLogic [place] [facility] UNK - Ambulatory Encounter Jehovah'S Witness Preload LinkLogic [facility] UNK - Ambulatory Encounter Jehovah'S Witness Preload LinkLogic [facility] UNK - Ambulatory Encounter Jehovah'S Witness Preload LinkLogic [facility] UNK - Ambulatory Encounter Jehovah'S Witness Preload LinkLogic [facility] UNK - Ambulatory Encounter Jehovah'S Witness Preload LinkLogic [place] [facility] UNK - Ambulatory Encounter Jehovah'S Witness Preload LinkLogic [place] [facility] UNK - Ambulatory Encounter Jehovah'S Witness Preload LinkLogic [place] [facility] UNK - Ambulatory Encounter Jehovah'S Witness Preload LinkLogic [place] [facility] UNK - Ambulatory Encounter Jehovah'S Witness Preload LinkLogic [place] [facility] UNK - Ambulatory Encounter Jehovah'S Witness Preload LinkLogic [place] [facility] UNK - Ambulatory Encounter Jehovah'S Witness Preload LinkLogic [place] [facility] UNK - Ambulatory Encounter Jehovah'S Witness Preload LinkLogic [place] [facility] UNK - Ambulatory Encounter Jehovah'S Witness Preload LinkLogic [place] [facility] UNK - Ambulatory Encounter Jehovah'S Witness Preload LinkLogic [place] [facility] UNK - Ambulatory Encounter Jehovah'S Witness Preload LinkLogic [place] [facility] UNK - Ambulatory Encounter Jehovah'S Witness Preload LinkLogic [place] [facility] UNK - Ambulatory Encounter Jehovah'S Witness Preload LinkLogic [place] [facility] UNK - Ambulatory Encounter Jehovah'S Witness Preload LinkLogic [place] [facility] UNK - Ambulatory Encounter Jehovah'S Witness Preload LinkLogic [place] [facility] UNK - Ambulatory Encounter Jehovah'S Witness Preload LinkLogic [place] [facility] UNK - Ambulatory Encounter Jehovah'S Witness Preload LinkLogic [place] [facility] UNK - Ambulatory Encounter Jehovah'S Witness Preload LinkLogic [place] [facility] UNK - Ambulatory Encounter Jehovah'S Witness Preload LinkLogic [place] [facility] UNK - Ambulatory Encounter Jehovah'S Witness [facility] Jehovah'S Witness Preload [facility] UNK - Ambulatory Encounter Jehovah'S Witness Preload [facility] VITAL SIGNS No Information Available ALLERGIES Allergy [...] Gabriella Rios blood glucose, random 124 mg/dL [facility] blood glucose, random 137 mg/dL [facility] thyroid stimulating hormone, serum 1.590 u[iU]/mL LinkLogic [...] PM for diabetes Patrizia Martel METOPROLOL TARTRATE 100 MG ORAL TABLET 1 [...] history E&M . Not homeless. Born in [facility]. City: [facility]. State: [place]. Employed full-time. [employer]. Highest education level: none-8th [...] history E&M . Not homeless. Born in [facility]. City: [facility]. State: [place]. Employed full-time. [employer]. Highest education level: none-8th grade. Gender identity: [...] 15 year tobacco use history Yes Viki Achary[place]aux Exercise Program Referral T Gabriella Rios " Weight Management Counseling Provided T Gabriella Rios " Nutrition intervention T Gabriella Rios " drug use, illicit Never Gabriella Rios " alcohol use Previously Gabriella Rios " social history E&M . Not homeless. Born in [facility]. City: [facility]. State: [place]. Employed full-time. [employer]. Highest education level: none-8th grade. Gender identity: Female. Gender of partner(s): male. Gabriella Rios " social history reviewed E&M reviewed today Gabriella Rios " passive cigarette smoke exposure No Gabriella Rios " smoking status former smoker Gabriella Rios Exercise Program Referral T Patrizia Martel " Weight Management Counseling Provided T [...] history E&M . Not homeless. Born in [facility]. City: [facility]. State: [place]. Employed full-time. [employer]. Highest education level: none-8th grade. Gender identity: Female. Gender of partner(s): male. Jennifer Peacock " social history reviewed E&M reviewed today Jennifer Peacock " Exercise Program Referral T Gabriella iRos " Weight Management Counseling Provided T Gabriella Gabriel " Nutrition intervention T Gabriella Gabriel " drug use, illicit Never Gabriella Rios " alcohol use Previously Gabriella Rios " social history E&M . Not homeless. Born in [place]. City: [facility]. State: [place]. Employed full-time. [employer]. Highest education level: none-8th grade. Gender identity: Female. Gender of partner(s): male. Gabriella Rios " social history reviewed E&M reviewed today Gabriella Rios " passive cigarette smoke exposure No Gabriella Rios " smoking status former smoker Gabriella Rios drug use, illicit Never Teresa Gay " alcohol use Currently Teresa Gay " social history E&M . Not homeless. Born in [facility]. City: [facility]. State: [place]. Employed full-time. [employer]. Highest education level: none-8th [...] history E&M . Not homeless. Born in [facility]. City: [facility]. State: [place]. Employed full-time. [employer]. Highest education level: none-8th grade. Gender identity: Female. Gender of partner(s): male. Teresa Gay " social history reviewed E&M reviewed today Teresa Gay " passive cigarette smoke exposure No Teresa Gay " smoking status former smoker Teresa Sernarera sex at female Jeannine Shirley " social history E&M . Not homeless. Born in [facility]. City: [facility]. State: [place]. Employed full-time. [employer]. Highest education level: none-8th grade. Gender identity: Female. Gender of partner(s): male. Jeannine Shirley " social history reviewed E&M reviewed today Jeannine Shirley " drug use, illicit Never Jeannine Casper " alcohol use Currently Jeannine Casper " passive cigarette smoke exposure No Jeannine Casper " smoking status former smoker Jeannine Casper social history E&M . Not homeless. Born in [facility]. City: [facility]. State: [place]. Employed full-time. [employer]. Highest education level: none-8th grade. Gender identity: Female. Gender of partner(s): male. Gabriella Edmondsierrez " Occupation #1 cook Gabriella Farleyrez " patient considered to be homeless No Gabriella Rios " drug use, illicit Never Gabriella Gabriel " alcohol use, frequency holidays/special occasions only Gabriella Gabriel " alcohol use Currently Gabriella Edmondsierrez " social history reviewed E&M reviewed today Gabriella Gabriel " passive cigarette smoke exposure No Gabriella Edmondsierrez " smoking status former smoker Gabriella Gabriel smoking status Current some day smoker LinkLog smoking status Current some day smoker LinkLog smoking status Current some day smoker LinkLog FUNCTIONAL STATUS No Information Available MENTAL STATUS Date Observation Value Provider assessment of mood and affect E&M pleasant Patrizia Tahmina " mental status examination: orientation E&M oriented to time, place, and person Patrizia Martel " assessment of judgment and insight E&M [...] other people (GAD7, question 8) 0 Gabriella Gabriel " Generalized Anxiety Disorder Questionnaire - Question 7 0 Gabriella Rios " Generalized Anxiety Disorder Questionnaire - Question 6 0 Gabriella Gabriel " Generalized Anxiety Disorder Questionnaire - Question 5 1 Gabriella Gabriel " Generalized Anxiety Disorder Questionnaire - Question [...] name Policy type / Coverage type Covered libertarian ID [employer]anded [employer] Other [id number] [facility] Fee - Cat 3 Commercial insurance company [employer] Other [id number] Sliding Fee Scale Commercial insurance company [id number] ADVANCE DIRECTIVES No Information Available TREATMENT PLAN [...] l - Est Patient Exp Problem - 04671 Est Patient Exp Problem - 02353 General Patient Education Est Patient Exp Problem - 95159 Nurse/Nurse Coordinator Est Patient Well Exam (40 - 64 Yrs) - 45376 HEMOGLOBIN A1C - In House Glucose Stick Est Patient Exp Problem - 55132 Prescription Assistance (Non-HIV) Est Patient Exp Problem - 27732 Est Patient Exp Problem - 40035 Prescription Assistance Est Patient Exp Problem - 54726 Dental - Internal Vision New Patient Detailed - 84401 HISTORY OF PROCEDURES Procedure Date Procedure Name Provider Procedure Notes Status HEMOGLOBIN A1C - In House Patrizia Martel completed Glucose Stick Patrizia Martel completed GOALS No Information Available HEALTH CONCERNS No Information Available
--- OUTSIDE RECORDS SUMMARY | 2019-09-04 10:08 | XMS REPORT ---
Author Author Admin, [place] Organization Unknown Address Unknown Phone Unavailable PROBLEMS [...] Encounter Diagnosis - Ambulatory Encounter Patrizia Martel [facility] UNK - Ambulatory Encounter Patrizia Rios [facility] UNK - Ambulatory Encounter Gisselle An [facility] UNK - Ambulatory Encounter Gisselle An [facility] UNK - Ambulatory Encounter Patrizia Martel [facility] UNK - Ambulatory Encounter Patrizia Martel [facility] Family [facility] UNK - Ambulatory Encounter Patrizia Martel [facility] Family [facility] UNK - Ambulatory Encounter Patrizia Martel [facility] UNK - Ambulatory Encounter LSJ Lab Support Desktop LinkDiaz Martel [facility] UNK - Ambulatory Encounter Patrizia Martel [facility] UNK - Ambulatory Encounter Patrizia Markham [facility] UNK - Ambulatory Encounter Gisselle [facility] UNK - Ambulatory Encounter Public Health Services Provider Freda Wren [facility] UNK - Ambulatory Encounter Patrizia Martel [facility] Practice UNK - Ambulatory Encounter [facility] - Ambulatory Encounter LSJ Lab Support Desktop [facility]ic Patrizia Martel [facility] UNK - Ambulatory Encounter Patrizia Martel [facility] UNK - Ambulatory Encounter Patrizia Martel [facility] UNK - [facility] - Ambulatory Encounter Gisselle [facility] UNK - Ambulatory Encounter Public Health Services Provider Freda Wren [facility] UNK - Ambulatory Encounter Patrizia Martel [facility] UNK - Ambulatory Encounter Patrizia Colmenares [facility] UNK - [facility] - Ambulatory Encounter Public Health Services Provider Freda Wren [facility] Services UNK - Ambulatory Encounter LSJ Care Coordination Desktop Jennifer [facility] UNK - Ambulatory Encounter Patrizia Paredes [facility] Practice UNK - Ambulatory Encounter [facility] UNK - Ambulatory Encounter Fax Status [facility] UNK - Ambulatory Encounter [facility] - Ambulatory Encounter Fax Status [facility] Services UNK - Ambulatory Encounter [facility]ulatory Encounter [facility] UNK - Ambulatory Encounter Patrizia Martel [facility] Practice UNK - Ambulatory Encounter Patrizia Waterman [facility] UNK - Ambulatory Encounter Josie [facility] UNK - Ambulatory Encounter Josie [facility] UNK - Ambulatory Encounter Viki Martel [facility] UNK - Ambulatory Encounter Gisselle Olivo [facility] Practice UNK - Ambulatory Encounter Ashley Markham [facility] UNK - Ambulatory Encounter Patrizia Obregon [facility] Practice Hemoccult positive stool - Ambulatory Encounter Patrizia Martel [facility] UNK - Ambulatory Encounter LSJ Lab Support Desktop [facility]Log[facility] Patrizia Martel [facility] UNK - Ambulatory Encounter Mera [facility] UNK - [facility] - [facility] Jesica Leila [facility] UNK - Ambulatory Encounter Patrizia Paredes [facility] UNK - Ambulatory Encounter Patrizia Martel [facility] UNK - Ambulatory Encounter Patrizia Martel [facility] UNK - Ambulatory Encounter Patrizia Martel [facility] UNK - Ambulatory Encounter LSJ Lab Support Desktop [facility]Logic Patrizia Martel [facility] UNK - Ambulatory Encounter LSJ Lab Support Desktop [facility] Patrizia Martel [facility] UNK - Ambulatory Encounter Patrizia Paredes [facility] UNK - Ambulatory Encounter LSJ Lab Support Desktop [facility] Patrizia Martel [facility] UNK - Ambulatory Encounter Patrizia Martel [facility] UNK - Ambulatory Encounter Patrizia Yanes [facility] Annual examMammogram yearly screeningCandidal vaginitisDysuriaColon Cancer Screening - Ambulatory Encounter Gisselle An [facility] UNK - Ambulatory Encounter Patrizia Martel [facility] UNK - Ambulatory Encounter Patrizia Martel [facility] UNK - Ambulatory Encounter Noemy [facility] Services UNK - Ambulatory Encounter Noemy [facility] Services UNK - Ambulatory Encounter Noemy [facility] Services UNK - Ambulatory Encounter Patrizia Martel [facility] UNK - Ambulatory Encounter Patrizia Martel [facility] UNK - Ambulatory Encounter Patrizia Manning [facility] UNK - Ambulatory Encounter Pinky Lechuga [facility] UNK - Ambulatory Encounter Pinky Lechuga [facility] UNK - Ambulatory Encounter Patrizia Martel [facility] UNK - Ambulatory Encounter Patrizia Gay [facility] Foot pain, left - Ambulatory Encounter Tomeka Martel [facility] UNK - Ambulatory Encounter Tomeka Martel [facility] UNK - Ambulatory Encounter Patrizia Martel [facility] UNK - Ambulatory Encounter Patrizia Martel [facility] UNK - Ambulatory Encounter Mary Farias [facility] UNK - Ambulatory Encounter Patrizia Gay [facility] Obesity - Ambulatory Encounter Jen Jarrett [facility] UNK - Ambulatory Encounter [facility] - Ambulatory Encounter Jen Jarrett [facility] UNK - Ambulatory Encounter Jensanket Farias [facility] UNK - Ambulatory Encounter Patrizia Martel [facility] UNK - Ambulatory Encounter Patrizia Ramon [place] Shirley [facility] UNK - Ambulatory Encounter F[facility] Status [facility] - Ambulatory Encounter Fax Status [facility] Services UNK - Ambulatory Encounter Fax Status [facility] Services UNK - Ambulatory Encounter Patrizia Martel [facility] Hyperlipidemia - Ambulatory Encounter Patrizia Martel [facility] Diabetes mellitus, type II - Ambulatory Encounter Patrizia Martel [facility] UNK - Ambulatory Encounter LSJ Lab Support Desktop LinkDiaz Martel [facility] UNK - Ambulatory Encounter Patrizia Martel [facility] UNK - Ambulatory Encounter Patrizia Bowser [facility] HypertensionAllergic rhinitisBack painShortness of breath - Ambulatory Encounter Toshia Saez [facility] UNK - Ambulatory Encounter Pinky Lechuga [facility] UNK - Ambulatory Encounter Pinky Lechuga [facility] UNK - Ambulatory Encounter Jaylin Bills [facility] UNK - Ambulatory Encounter Jaylin Bills [facility] UNK - Ambulatory Encounter Mariasanket Simmons [facility] UNK - Ambulatory Encounter Gnosticist Preload [facility] UNK - Ambulatory Encounter Gnosticist Preload [facility] UNK - Ambulatory Encounter Gnosticist Preload [facility] UNK - Ambulatory Encounter Gnosticist Preload [facility] UNK - Ambulatory Encounter Gnosticist Preload [facility] UNK - Ambulatory Encounter Gnosticist Preload [facility] UNK - Ambulatory Encounter Gnosticist Preload [facility] UNK - Ambulatory Encounter Gnosticist Preload [facility] UNK - Ambulatory Encounter Gnosticist Preload [facility] UNK - Ambulatory Encounter Gnosticist Preload [facility] UNK - Ambulatory Encounter Gnosticist Preload [facility] UNK - Ambulatory Encounter Gnosticist Preload [facility] UNK - Ambulatory Encounter Gnosticist Preload [facility] UNK - Ambulatory Encounter Gnosticist Preload [facility] UNK - Ambulatory Encounter Gnosticist Preload [facility] Practice UNK - Ambulatory Encounter Gnosticist Preload [facility] UNK - Ambulatory Encounter Gnosticist Preload [facility] UNK - Ambulatory Encounter Gnosticist Preload [facility] Practice UNK - Ambulatory Encounter Gnosticist Preload [facility] UNK - Ambulatory Encounter Gnosticist Preload [facility] UNK - Ambulatory Encounter Gnosticist Preload [facility] UNK - Ambulatory Encounter Gnosticist Preload [facility] UNK - Ambulatory Encounter Gnosticist Preload [facility] UNK - Ambulatory Encounter Gnosticist Preload [facility] UNK - Ambulatory Encounter Gnosticist Preload [facility] UNK - Ambulatory Encounter Gnosticist Preload [facility] UNK - Ambulatory Encounter Gnosticist Preload [facility] UNK - Ambulatory Encounter Gnosticist Preload [facility] Practice UNK - Ambulatory Encounter Gnosticist Preload [facility] UNK - Ambulatory Encounter Gnosticist Preload [facility] UNK - Ambulatory Encounter Gnosticist Preload [facility] UNK - Ambulatory Encounter Gnosticist Preload [facility] UNK - Ambulatory Encounter Gnosticist Preload [facility] UNK - Ambulatory Encounter Gnosticist Preload [facility] UNK - Ambulatory Encounter Gnosticist Preload [facility] UNK - Ambulatory Encounter Gnosticist Preload [facility] UNK - Ambulatory Encounter Gnosticist Preload [facility] UNK - Ambulatory Encounter Gnosticist Preload [facility] UNK - Ambulatory Encounter Gnosticist Preload [facility] UNK - Ambulatory Encounter Gnosticist Preload [facility] UNK - Ambulatory Encounter Gnosticist Preload [facility] UNK - Ambulatory Encounter Gnosticist Preload [facility] UNK - Ambulatory Encounter Gnosticist Preload [facility] UNK - Ambulatory Encounter Gnosticist Preload [facility] UNK - Ambulatory Encounter Gnosticist Preload [facility] UNK - Ambulatory Encounter Gnosticist Preload [facility] UNK - Ambulatory Encounter Gnosticist Preload [facility] UNK - Ambulatory Encounter Gnosticist Preload [facility] UNK - Ambulatory Encounter Gnosticist Preload [facility] UNK - Ambulatory Encounter Gnosticist Preload [facility] UNK - Ambulatory Encounter Gnosticist Preload [facility] Practice UNK - Ambulatory Encounter Gnosticist Preload [facility] UNK - Ambulatory Encounter Gnosticist Preload [facility] UNK - Ambulatory Encounter Gnosticist Preload [facility]Log[facility] UNK - Ambulatory Encounter Gnosticist Preload [facility] UNK - Ambulatory Encounter Gnosticist Preload [facility] UNK - Ambulatory Encounter Gnosticist Preload [facility] UNK - Ambulatory Encounter Gnosticist Preload [facility] UNK - Ambulatory Encounter Gnosticist Preload [facility] UNK - Ambulatory Encounter Gnosticist Preload [facility] UNK - Ambulatory Encounter Gnosticist Preload [facility] UNK - Ambulatory Encounter Gnosticist Preload [facility] UNK - Ambulatory Encounter Gnosticist Preload [facility] UNK - Ambulatory Encounter Gnosticist Preload [facility] UNK - Ambulatory Encounter Gnosticist Preload [facility] UNK - Ambulatory Encounter Gnosticist Preload [facility] UNK - Ambulatory Encounter Gnosticist Preload [facility] UNK - Ambulatory Encounter Gnosticist Preload [facility] UNK - Ambulatory Encounter Gnosticist Preload [facility] UNK - Ambulatory Encounter Gnosticist Preload [facility] UNK - Ambulatory Encounter Gnosticist Preload [facility] UNK - Ambulatory Encounter Gnosticist Preload [facility] - Ambulatory Encounter Gnosticist Preload [facility] UNK - Ambulatory Encounter Gnosticist Preload [facility]Log[facility] UNK - Ambulatory Encounter Gnosticist Preload [facility] UNK - Ambulatory Encounter Gnosticist Preload [facility] UNK - Ambulatory Encounter Gnosticist Preload [facility] UNK - Ambulatory Encounter Gnosticist Preload [facility] UNK - Ambulatory Encounter Gnosticist Preload [facility] UNK - Ambulatory Encounter Gnosticist Preload [facility] UNK - Ambulatory Encounter Gnosticist Preload [facility] UNK VITAL SIGNS Date Observation Value Provider BP diastolic #1 91 mm[Hg] Gabriella Rios " BP systolic #1 156 mm[Hg] Gabriella Rios " pulse rate #2 72 Gabriella Rios " blood pressure, diastolic, second observation 91 mm[Hg] Gabriella Rios " blood pressure, systolic, second observation 150 mm[Hg] Gabriella Rios " temperature E&M 98.4 [degF] Gabriella Rios " pulse rate E&M 73 /min Gabriella Rios " respiratory rate E&M 16 /min Gabriella Rios " blood pressure, diastolic 91 mm[Hg] Gabriella Rios " blood pressure, systolic 150 mm[Hg] Gabriella Rios " oxygen saturation, oximetry 95 % Gabriella Rios " weight E&M 223 lbs. Gabriella Rios " weight in kilograms E&M 101.36 kg Gabriella Rios " height E&M 60.20 [in_i] Gabriella Rios " height in centimeters E&M 152.91 cm Gabriella Rios " temperature site oral Gabriella Rios " method used to obtain blood pressure automatic Gabriella Rios " Blood Pressure Position 01 sitting Gabriella Rios " blood pressure, site #1 left arm Gabriella Farleyrez oxygen saturation, oximetry 95 % Elaine Pool " blood pressure, diastolic 86 mm[Hg] Elaine Pool " blood pressure, systolic 160 mm[Hg] Elaine Pool " respiratory rate E&M 16 /min Elaine Pool " pulse rate E&M 75 /min Elaine Pool " temperature E&M 98.4 [degF] Elaine Pool " weight E&M 222.20 lbs. Elaine Pool " weight in kilograms E&M 101 kg Elaine Pool " Blood Pressure Position 01 sitting Ashley Markham " blood pressure, site #1 left arm Ashley Markham " method used to obtain blood pressure automatic Ashley Markham " temperature site oral Ashley Markham " height E&M 60.20 [in_i] Ashley Markham " height in centimeters E&M 152.91 cm Ashley Markham oxygen saturation, oximetry 93 % Ashley Markham " method used to obtain blood pressure automatic Ashley Markham " Blood Pressure Position 01 sitting Ashley Markham " blood pressure, site #1 left arm Ashley Markham " blood pressure, diastolic 80 mm[Hg] Ashley Markham " blood pressure, systolic 135 mm[Hg] Ashley Markham " respiratory rate E&M 19 /min Ashley Markham " pulse rate E&M 75 /min Ashley Markham " temperature site oral Ashley Markham " temperature E&M 98.9 [degF] Ashley Markham " weight E&M 217.25 lbs. Ashley Markham " weight in kilograms E&M 98.75 kg Ashley Markham " height E&M 60.20 [in_i] Ashleylisa HoyosMarkham " height in centimeters E&M 152.91 cm Ashley Hoyosendez temperature site oral Gabriella Rios " method used to obtain blood pressure automatic Gabriella Rios " Blood Pressure Position 01 sitting Gabriella Rios " blood pressure, site #1 left arm Gabriella Rios " oxygen saturation, oximetry 95 % Gabriella Rios " blood pressure, diastolic 87 mm[Hg] Gabriella Rios " blood pressure, systolic 144 mm[Hg] Gabriella Rios " respiratory rate E&M 15 /min Gabriella Rios " pulse rate E&M 68 /min Gabriella Rios " temperature E&M 98.1 [degF] Gabriella Rios " weight E&M 219.60 lbs. Gabriella Rios " weight in kilograms E&M 99.82 kg Gabriella Rios " height E&M 60.20 [in_i] Gabriella Rios " height in centimeters E&M 152.91 cm Gabriella Rios blood pressure, diastolic, second observation 88 mm[Hg] Jennifer Ayush " blood pressure, systolic, second observation 142 mm[Hg] Jennifer Ayush " pulse rate #2 73 Jennifer Peacock " oxygen saturation, oximetry 94 % Jennifer Peacock " blood pressure, diastolic 91 mm[Hg] Jennifer Ayush " blood pressure, systolic 140 mm[Hg] Jennifer Peacock " respiratory rate E&M 18 /min Jennifer Peacock " pulse rate E&M 77 /min Jennifer Peacock " temperature E&M 98.9 [degF] Jennifer Peacock " weight E&M 21.40 lbs. Jennifer Peacock " weight in kilograms E&M 9.73 kg Jennifer Peacock " height E&M 60.20 [in_i] Jennifer Peacock " height in centimeters E&M 152.91 cm Jennifer Peacock " temperature site oral Jennifer Peacock " Blood Pressure Position 01 sitting Jennifer Peacock " method used to obtain blood pressure automatic Jennifer Peacock " blood pressure, site #1 left arm Jennifer Peacock oxygen saturation, oximetry 94 % Gabriella Rios " blood pressure, diastolic 97 mm[Hg] Gabriella Rios " blood pressure, systolic 162 mm[Hg] Gabriella Rios " respiratory rate E&M 16 /min Gabriella Rios " pulse rate E&M 88 /min Gabriella Rios " temperature E&M 98.7 [degF] Gabriella Rios " temperature site oral Gabriella Rios " method used to obtain blood pressure automatic Gabriella Rios " Blood Pressure Position 01 sitting Gabriella Rios " blood pressure, site #1 left arm Gabriella Edmondsierrez " weight E&M 219.40 lbs. Gabriella Rios " weight in kilograms E&M 99.73 kg Gabriella Rios " height in centimeters E&M 152.91 cm Gabriella Rios " height E&M 60.2 [in_i] Gabriella Rios oxygen saturation, oximetry 98 % Teresa Gay " method used to obtain blood pressure automatic Teresa Gay " Blood Pressure Position 01 sitting Teresa Gay " blood pressure, site #1 right arm Teresa Gay " blood pressure, diastolic 96 mm[Hg] Teresa Gay " blood pressure, systolic 165 mm[Hg] Teresa Gay " respiratory rate E&M 17 /min Teresa Gay " pulse rate E&M 72 /min Teresa Gay " temperature site oral Teresa Gay " temperature E&M 97.0 [degF] Teresa Gay " weight E&M 225.60 lbs. Teresa Gay " weight in kilograms E&M 102.55 kg Teresa Gay " height E&M 65.50 [in_i] Teresa Gay " height in centimeters E&M 166.37 cm Teresa Gay oxygen saturation, oximetry 96 % Teresa Gay " method used to obtain blood pressure automatic Teresa Gay " Blood Pressure Position 01 sitting Teresa Gay " blood pressure, site #1 right arm Teresa Gay " blood pressure, diastolic 90 mm[Hg] Teresa Gay " blood pressure, systolic 159 mm[Hg] Teresa Gay " respiratory rate E&M 17 /min Teresa Gay " pulse rate E&M 69 /min Teresa Gay " temperature site oral Teresa Gay " temperature E&M 98.1 [degF] Teresa Gay " weight E&M 225 lbs. Teresa Gay " weight in kilograms E&M 102.27 kg Teresa Gay " height E&M 65.50 [in_i] Teresa Gay " height in centimeters E&M 166.37 cm Teresa Sernarera respiratory rate #2 17.25 Jeannine Shirley " pulse rate #2 69 Jeannine Casper " blood pressure, diastolic, second observation 84 mm[Hg] Jeannine Shirley " blood pressure, systolic, second observation 176 mm[Hg] Jeanninemireya Shirley " oxygen saturation, oximetry 95 % Jeannine Shirley " method used to obtain blood pressure automatic Jeannine Shirley " Blood Pressure Position 01 sitting Jeannine Shirley " blood pressure, site #1 left arm Jeannine Casper " blood pressure, diastolic 100 mm[Hg] Jeannine Casper " blood pressure, systolic 150 mm[Hg] Jeannine Casper " respiratory rate E&M 18.25 /min Jeannine Shirley " pulse rate E&M 73 /min Jeannine Casper " temperature site oral Jeannine Casper " temperature E&M 98.1 [degF] Jeannine Casper " weight E&M 224.60 lbs. Jeannine Casper " weight in kilograms E&M 102.09 kg Jeannine Casper " height E&M 65.50 [in_i] Jeannine Shirley " height in centimeters E&M 166.37 cm Jeannine Shirley temperature site oral Gabriella Rios " method used to obtain blood pressure automatic Gabriella Rios " Blood Pressure Position 01 sitting Gabriella Rios " blood pressure, site #1 right arm Gabriella Gabriel " oxygen saturation, oximetry 97 % Gabriella Gabriel " blood pressure, diastolic 111 mm[Hg] Gabriella Rios " blood pressure, systolic 177 mm[Hg] Gabriella Rios " respiratory rate E&M 16 /min Gabriella Rios " pulse rate E&M 76 /min Gabriella Farleyrez " temperature E&M 97.9 [degF] Gabriella Farleyrez " height E&M 65.50 [in_i] Gabriella Farleyrez " height in centimeters E&M 166.37 cm Gabriella Farleyrez " weight E&M 225.38 lbs. Gabriella Farleyrez " weight in kilograms E&M 102.45 kg Gabriella Farleyrez pulse rate E&M 60 /min [employer] " blood pressure, systolic 140 mm[Hg] [employer] " blood pressure, diastolic 82 mm[Hg] [employer] " height E&M 60.50 [in_i] [employer] " temperature E&M 96.8 [degF] [employer] " respiratory rate E&M 18 /min [employer] " weight E&M 206.00 lbs. [employer] height E&M 60.50 [in_i] [employer] " weight E&M 205.00 lbs. [employer] " respiratory rate E&M 18 /min [employer] " blood pressure, systolic 140 mm[Hg] [employer] " blood pressure, diastolic 80 mm[Hg] [employer] " pulse rate E&M 80 /min [employer] respiratory rate E&M 18 /min [employer] " blood pressure, diastolic 76 mm[Hg] [employer] " temperature E&M 97.5 [degF] [employer] " pulse rate E&M 60 /min [facility] " weight E&M 197.50 lbs. [employer] " height E&M 60.50 [in_i] [facility] " blood pressure, systolic 142 mm[Hg] [facility] ALLERGIES Allergy Name Onset Date Reaction Criticality Status ATORVASTATIN leg/muscle pain High Criticality active LOVASTATIN Leg/Muscle Pains High Criticality active REASON FOR REFERRAL Start Date - End Date Service - Endocrinology - Adult - Gastroenterology - External - Mammogram - Screening RESULTS Date Observation Value Provider Reference Range Interpretation Location blood glucose, 2 hours postprandial 207 mg/dL Gabriella Rios hemoglobin A1C, blood, as % of total [...] Gabriella Rios blood glucose, random 124 mg/dL Teresa Gay blood glucose, random 137 mg/dL [facility] thyroid stimulating hormone, serum 1.590 u[iU]/mL [...] MEDICATION USE Medication Instructions Dates Provider Comments AMLODIPINE BESYLATE 5 MG ORAL TABLET 1 tab by mouth daily for blood pressure Patrizia Martel VASCEPA 1 GM ORAL CAPSULE 1 tablet by mouth twice daily for cholesterol Patrizia Martel BACTRIM DS 800-160 MG ORAL TABLET 1 tab by mouth twice a day for 5 days for UTI - Patrizia aMrtel [facility] OMEGA-3 KRILL OIL 300 MG ORAL [...] Martel SOCIAL HISTORY Date Observation Value Provider Exercise Program Referral T Gabriella Rios " Weight Management Counseling Provided T Gabriella Rios " Nutrition intervention T Gabriella Rios " drug use, illicit Never Gabriella Rios " alcohol use Previously Gabriella Rios " social history E&M . Not homeless. Born in [facility]. City: [facility]. State: [place]. Employed full-time. [employer]. Highest education level: none-8th grade. Gender identity: Female. Gender of partner(s): male. Gabriella Gabriel " social history reviewed E&M reviewed today Gabriella Rios " passive cigarette smoke exposure No Gabriella Rios " smoking status former smoker Gabriella Rios drug use, illicit Never Ashley Markham " alcohol use Previously Ashley Markham " social history E&M . Not homeless. Born in [facility]. City: [facility]. State: [place]. Employed full-time. [employer]. Highest education level: none-8th grade. Gender identity: [...] history E&M . Not homeless. Born in [facility]. City: [facility]. State: [place]. Employed full-time. [employer]. Highest education level: none-8th grade. Gender identity: [...] history E&M . Not homeless. Born in [facility]. City: [facility]. State: [place]. Employed full-time. [employer]. Highest education level: none-8th [...] history E&M . Not homeless. Born in [facility]. City: [facility]. State: [place]. Employed full-time. [employer]. Highest education level: none-8th grade. Gender identity: Female. Gender of partner(s): male. Jennifer Peacock " social history reviewed E&M reviewed today Jennifer Peacock " Exercise Program Referral T Gabriella Rios " Weight Management Counseling Provided T Gabriella Rios " Nutrition intervention T Gabriella Rios " drug use, illicit Never Gabriella Gabriel " alcohol use Previously Gabriella Rios " social history E&M . Not homeless. Born in [facility]. City: [facility]. State: [place]. Employed full-time. [employer]. Highest education level: none-8th grade. Gender identity: Female. Gender of partner(s): male. Gabriella Rios " social history reviewed E&M reviewed today Gabriella Rios " passive cigarette smoke exposure No Gabriella Rios " smoking status former smoker Gabriella Rios drug use, illicit Never Teresa Gay " alcohol use Currently Teresa Gay " social history E&M . Not homeless. Born in [facility]. City: [facility]. State: [place]. Employed full-time. [employer]. Highest education level: none-8th grade. Gender identity: Female. Gender of partner(s): male. Teresa Gay " social history reviewed E&M reviewed today Teresa Gay " passive cigarette smoke exposure No Teresa Gay " smoking status former smoker Teresa Sernarera Exercise Program Referral Yunior Martle " Weight Management Counseling Provided Yunior Martel " Nutrition intervention Yunior Martel " drug use, illicit Never Teresa Gay " alcohol use Currently Teresa Gay " social history E&M . Not homeless. Born in [facility]. City: [facility]. State: [place]. Employed full-time. [employer]. Highest education level: none-8th grade. Gender identity: Female. Gender of partner(s): male. Teresa Gay " social history reviewed E&M reviewed today Teresa Gay " passive cigarette smoke exposure No Teresa Gay " smoking status former smoker Teresa Sernarera sex at female Jeannine Shirley " social history E&M . Not homeless. Born in [facility]. City: [facility]. State: [place]. Employed full-time. [employer]. Highest education level: none-8th grade. Gender identity: Female. Gender of partner(s): male. Jeannine Shirley " social history reviewed E&M reviewed today Jeannine Shirley " drug use, illicit Never Jeannine Casper " alcohol use Currently Jeannine Casper " passive cigarette smoke exposure No Jeannine Casper " smoking status former smoker Jeannine Shirley social history E&M . Not homeless. Born in [facility]. City: [facility]. State: [place]. Employed full-time. [employer]. Highest education level: none-8th grade. Gender identity: Female. Gender of partner(s): male. 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 No Gabriella Rios " drug use, illicit Never Gabriellaluisito Rios " alcohol use, frequency holidays/special occasions only Gabriella Gabriel " alcohol use Currently Gabriella Gabriel " social history reviewed E&M reviewed today Gabriellauri Rios " passive cigarette smoke exposure No Gabriellauri Rios " smoking status former smoker Gabriella [...] " assessment of judgment and insight E&M intact Patrizia Tahmina " Generalized Anxiety Disorder Questionnaire - Question 2 0 Gabriella Rios " Generalized Anxiety Disorder Questionnaire - Question 1 0 Gabriella Rios assessment of mood and affect E&M pleasant Patrizia Tahmina " mental status examination: orientation E&M oriented to time, place, and person Patrizia Tahmina " assessment of judgment and insight E&M limited Patrizia Tahmina " Generalized Anxiety Disorder Questionnaire - Question 2 0 Ashley Markham " Generalized Anxiety Disorder Questionnaire - Question 1 0 Ashley Marhkam assessment of judgment and insight E&M limited [...] ID Expanded Primary Health [facility]ookie Other [id number] Sliding Fee - Cat 3 Commercial insurance company Expanded Primary Health [facility] [employer] Other [id number] Sliding Fee Scale Commercial insurance company [id number] ADVANCE DIRECTIVES No Information Available TREATMENT PLAN [...] l - Est Patient Exp Problem - 21634 Est Patient Exp Problem - 27324 Est Patient Exp Problem - 75029 General Patient Education Est Patient Exp Problem - 49093 Nurse/Nurse Coordinator Est Patient Well Exam (40 - 64 Yrs) - 32626 HEMOGLOBIN A1C - In House Glucose Stick Est Patient Exp Problem - 58016 Prescription Assistance (Non-HIV) Est Patient Exp Problem - 18900 Est Patient Exp Problem - 38697 Prescription Assistance Est Patient Exp Problem - 97208 Dental - Internal Vision New Patient Detailed - 53436 HISTORY OF PROCEDURES Procedure Date Procedure Name Provider Procedure Notes Status HEMOGLOBIN A1C - In House Patrizia Martel completed Glucose Stick Patrizia Martel completed GOALS No Information Available HEALTH CONCERNS No Information Available
--- OUTSIDE RECORDS SUMMARY | 2019-09-04 10:08 | XMS REPORT ---
Author Author Admin, [place] Organization Unknown Address Unknown Phone Unavailable PROBLEMS [...] Encounter Diagnosis - Ambulatory Encounter Patrizia Martel [facility] UNK - Ambulatory Encounter LSJ Lab Support Desktop LinkLogic Patrizia Martel [facility] UNK - Ambulatory Encounter Patrizia Martel [facility] UNK - Ambulatory Encounter Patrizia Markham [facility] UNK - Ambulatory Encounter Gisselle An [facility] UNK - Ambulatory Encounter Public Health Services Provider Freda Wren [facility] UNK - Ambulatory Encounter Patrizia Martel [facility] UNK - Ambulatory Encounter Patrizia Colmenares [facility] UNK - Ambulatory Encounter LSJ Lab Support Desktop Dedra Martel [facility] UNK - Ambulatory Encounter Patrizia Martel [facility] UNK - Ambulatory Encounter Patrizia Martel [facility] UNK - Ambulatory Encounter Patrizia Markham [facility] UNK - Ambulatory Encounter Gisselle An [facility] UNK - Ambulatory Encounter Public Health Services Provider Freda Wren [facility] UNK - Ambulatory Encounter Patrizia Martel [facility] UNK - Ambulatory [facility] - Ambulatory Encounter Gisselle An [facility] UNK - Ambulatory Encounter Public Health Services Provider Freda Wren [facility] UNK - Ambulatory Encounter LSJ Care Coordination Desktop Jennifer Waterman [facility] Contact Center UNK - Ambulatory [facility] - [facility]ulatory Encounter [facility] Martel [facility] - Ambulatory Encounter F[facility]K - Ambulatory Encounter Fax [facility] UNK - Ambulatory Encounter Fax Status LinkLogic [facility] UNK - Ambulatory Encounter Fax [facility] UNK - Ambulatory Encounter Fax Status [facility] UNK - Ambulatory Encounter Patrizia Martel [facility] UNK - Ambulatory Encounter Patrizia Waterman [facility] UNK - Ambulatory Encounter Josie Sabas [facility] UNK - Ambulatory Encounter Josie Sabas [facility] UNK - Ambulatory Encounter Viki Martel [facility] UNK - Ambulatory Encounter Gisselle Olivo [facility] UNK - Ambulatory Encounter Ashley Rashi [facility] UNK - Ambulatory Encounter Patrizia Obregon [facility] Hemoccult positive stool - Ambulatory Encounter Patrizia Martel [facility] UNK - Ambulatory Encounter LSJ Lab Support Desktop LinkLogic Patrizia Martel [facility] UNK - Ambulatory Encounter Mera Sullivan [facility] UNK - Ambulatory Encounter Mera Sullivan [facility] UNK - Ambulatory Encounter Jesica Dee [facility] UNK - Ambulatory Encounter [facility] - Ambulatory Encounter Patrizia Martel [facility] UNK - Ambulatory Encounter Patrizia Martel [facility] UNK - Ambulatory Encounter Patrizia Martel [facility] UNK - Ambulatory Encounter LSJ Lab Support Desktop LinkSidneyic Patrizia Martel [facility] UNK - Ambulatory Encounter LSJ Lab Support Desktop LinkLogic Patrizia Martel [facility] UNK - Ambulatory Encounter [facility] Paredes [facility] UNK - Ambulatory Encounter LSJ Lab Support Desktop LinkLogic Patrizia Martel [facility] UNK - Ambulatory Encounter Patrizia Martel [facility] UNK - Ambulatory Encounter Patrizia Yanes [facility] Annual examMammogram yearly screeningCandidal vaginitisDysuriaColon Cancer Screening - Ambulatory Encounter Gisselle Juve [facility] UNK - Ambulatory Encounter [facility] - Ambulatory Encounter [facility] UNK - Ambulatory En[facility] UNK - [facility]ulatory [facility] - Ambulatory En[facility] UNK - Ambulatory Encounter [facility] - Ambulatory Encounter Patrizia Martel [facility] UNK - Ambulatory Encounter Patrizia Castelan [facility] UNK - Ambulatory Encounter Pinky Lechuga [facility] UNK - Ambulatory Encounter Pinky Lechuga [facility] UNK - Ambulatory Encounter Patrizia Martel [facility] UNK - Ambulatory Encounter Patrizia Moore [facility] Foot pain, left - Ambulatory Encounter Tomeka Martel [facility] UNK - Ambulatory Encounter Tomeka Martel [facility] UNK - Ambulatory Encounter Patrizia Martel [facility] UNK - Ambulatory Encounter Patrizia Martel [facility] UNK - Ambulatory Encounter Evernoemi Jarrett [facility] UNK - Ambulatory Encounter Patrizia Gay [facility] Obesity - Ambulatory Encounter Jen Jarrett [facility] UNK - Ambulatory Encounter Patrizia Martel [facility] UNK - Ambulatory Encounter Jen Jarrett [facility] UNK - Ambulatory Encounter Jen Jarrett [facility] UNK - Ambulatory Encounter Patrizia Martel [facility] UNK - Ambulatory Encounter Patrizia Shirley [facility] UNK - Ambulatory Encounter Fax Status [facility] UNK - Ambulatory Encounter Fax [facility] UNK - Ambulatory Encounter Fax Status [facility] UNK - Ambulatory Encounter Patrizia Martel [facility] Hyperlipidemia - Ambulatory Encounter Patrizia Martel [facility] Diabetes mellitus, type II - Ambulatory Encounter Patrizia Martel [facility] UNK - Ambulatory Encounter LSJ Lab Support Desktop Dedra Martel [facility] UNK - Ambulatory Encounter Patrizia Martel [facility] UNK - Ambulatory [facility] HypertensionAllergic rhinitisBack painShortness of breath - Ambulatory Encounter Toshia Saez [facility] UNK - Ambulatory Encounter Pinky Lechuga [facility] UNK - Ambulatory Encounter Pinky Lechuga [facility] UNK - Ambulatory Encounter Jaylin Bills [facility] Adult Medicine UNK - Ambulatory Encounter Jaylin Bills [facility] Adult [facility] UNK - Ambulatory Encounter Maria Simmons [facility] UNK - Ambulatory Encounter Rastafarian Preload [facility] UNK - Ambulatory Encounter Rastafarian Preload [facility] UNK - Ambulatory Encounter Rastafarian Preload [facility] UNK - Ambulatory Encounter Rastafarian Preload [facility] UNK - Ambulatory Encounter Rastafarian Preload [facility] UNK - Ambulatory Encounter Rastafarian Preload [facility] UNK - Ambulatory Encounter Rastafarian Preload [facility] UNK - Ambulatory Encounter Rastafarian Preload [facility] UNK - Ambulatory Encounter Rastafarian Preload [facility] UNK - Ambulatory Encounter Rastafarian Preload LinkLogic [facility] UNK - Ambulatory Encounter Rastafarian Preload LinkLogic [facility] UNK - Ambulatory Encounter Rastafarian Preload [facility] UNK - Ambulatory Encounter Rastafarian Preload LinkLogic [facility] UNK - Ambulatory Encounter Rastafarian Preload LinkLogic [facility] UNK - Ambulatory Encounter Rastafarian Preload LinkLogic [facility] UNK - Ambulatory Encounter Rastafarian Preload [facility] UNK - Ambulatory Encounter Rastafarian Preload [facility] UNK - Ambulatory Encounter Rastafarian Preload LinkLogic [facility] UNK - Ambulatory Encounter Rastafarian Preload LinkLogic [facility] UNK - Ambulatory Encounter Rastafarian Preload LinkLogic [facility] UNK - Ambulatory Encounter Rastafarian Preload LinkLogic [facility] UNK - Ambulatory Encounter Rastafarian Preload [facility] UNK - Ambulatory Encounter Rastafarian Preload [facility] UNK - Ambulatory Encounter Rastafarian Preload [facility] UNK - Ambulatory Encounter Rastafarian Preload [facility] UNK - Ambulatory Encounter Rastafarian Preload [facility] UNK - Ambulatory Encounter Rastafarian Preload LinkLogic [facility] UNK - Ambulatory Encounter Rastafarian Preload LinkLogic [facility] UNK - Ambulatory Encounter Rastafarian Preload LinkLogic [facility] UNK - Ambulatory Encounter Rastafarian Preload [facility] UNK - Ambulatory Encounter Rastafarian Preload [facility] UNK - Ambulatory Encounter Rastafarian Preload [facility] UNK - Ambulatory Encounter Rastafarian Preload LinkLogic [facility] UNK - Ambulatory Encounter Rastafarian Preload LinkLogic [facility] UNK - Ambulatory Encounter Rastafarian Preload [facility] UNK - Ambulatory Encounter Rastafarian Preload [facility]Log[facility] UNK - Ambulatory Encounter Rastafarian Preload LinkLogic [facility] UNK - Ambulatory Encounter Rastafarian Preload LinkLogic [facility] UNK - Ambulatory Encounter Rastafarian Preload LinkLogic [facility] UNK - Ambulatory Encounter Rastafarian Preload LinkLogic [facility] UNK - Ambulatory Encounter Rastafarian Preload [facility]Log[facility] UNK - Ambulatory Encounter Rastafarian Preload LinkLog[facility] UNK - Ambulatory Encounter Rastafarian Preload LinkLogic [facility] UNK - Ambulatory Encounter Rastafarian Preload [facility]Log[facility] UNK - Ambulatory Encounter Rastafarian Preload [facility]Log[facility] UNK - Ambulatory Encounter Rastafarian Preload LinkLog[facility] UNK - Ambulatory Encounter Rastafarian Preload LinkLog[facility] UNK - Ambulatory Encounter Rastafarian Preload [facility] UNK - Ambulatory Encounter Rastafarian Preload [facility]Log[facility] UNK - Ambulatory Encounter Rastafarian Preload LinkLogic [facility] UNK - Ambulatory Encounter Rastafarian Preload LinkLogic [facility] UNK - Ambulatory Encounter Rastafarian Preload LinkLogic [facility] UNK - Ambulatory Encounter Rastafarian Preload LinkLogic [facility] UNK - Ambulatory Encounter Rastafarian Preload LinkLogic [facility] UNK - Ambulatory Encounter Rastafarian Preload LinkLogic [facility] UNK - Ambulatory Encounter Rastafarian Preload LinkLogic [facility] UNK - Ambulatory Encounter Rastafarian Preload LinkLogic [facility] UNK - Ambulatory Encounter Rastafarian Preload LinkLogic [facility] UNK - Ambulatory Encounter Rastafarian Preload LinkLogic [facility] UNK - Ambulatory Encounter Rastafarian Preload LinkLogic [facility] UNK - Ambulatory Encounter Rastafarian Preload LinkLogic [facility] UNK - Ambulatory Encounter Rastafarian Preload LinkLogic [facility] UNK - Ambulatory Encounter Rastafarian Preload LinkLogic [facility] UNK - Ambulatory Encounter Rastafarian Preload LinkLogic [facility] UNK - Ambulatory Encounter Rastafarian Preload LinkLogic [facility] UNK - Ambulatory Encounter Rastafarian Preload LinkLogic [facility] UNK - Ambulatory Encounter Rastafarian Preload LinkLogic [facility] UNK - Ambulatory Encounter Rastafarian Preload LinkLogic [facility] UNK - Ambulatory Encounter Rastafarian Preload LinkLogic [facility] UNK - Ambulatory Encounter Rastafarian Preload LinkLogic [facility] UNK - Ambulatory Encounter Rastafarian Preload LinkLogic [facility] UNK - Ambulatory Encounter Rastafarian Preload LinkLogic [facility] UNK - Ambulatory Encounter Rastafarian Preload LinkLogic [facility] UNK - Ambulatory Encounter Rastafarian Preload LinkLogic [facility] UNK - Ambulatory Encounter Rastafarian Preload LinkLogic [facility] UNK - Ambulatory Encounter Rastafarian Preload LinkLogic [facility] UNK - Ambulatory Encounter Rastafarian Preload LinkLogic [facility] UNK - Ambulatory Encounter Rastafarian [facility]reload [facility]afarian [facility]reload [facility] Encounter Rastafarian Preload [facility] UNK - Ambulatory Encounter Rastafarian Preload [facility] VITAL SIGNS No Information Available ALLERGIES Allergy [...] Gabriella Rios blood glucose, random 124 mg/dL [facility] blood glucose, random 137 mg/dL [facility] thyroid stimulating hormone, serum 1.590 [...] history E&M . Not homeless. Born in [facility]. City: [facility]. State: [place]. Employed full-time. [employer]. Highest education level: none-8th [...] history E&M . Not homeless. Born in [facility]. City: [facility]. State: [place]. Employed full-time. [employer]. Highest education level: none-8th grade. Gender identity: [...] history E&M . Not homeless. Born in [facility]. City: [facility]. State: [place]. Employed full-time. [employer]. Highest education level: none-8th [...] history E&M . Not homeless. Born in [facility]. City: [facility]. State: [place]. Employed full-time. [employer]. Highest education level: none-8th [...] . Not homeless. Born in [place]. City: [facility]. State: [place]. Employed full-time. [employer]. Highest education level: none-8th grade. Gender identity: Female. Gender of partner(s): male. Gabriella Rios " social history reviewed E&M reviewed today Gabriella Rios " passive cigarette smoke exposure No Gabriella Rios " smoking status former smoker Gabriella Rios drug use, illicit Never Teresa Gay " alcohol use Currently Teresa Gay " social history E&M . Not homeless. Born in [facility]. City: [facility]. State: [place]. Employed full-time. [employer]. Highest education level: none-8th [...] history E&M . Not homeless. Born in [facility]. City: [facility]. State: [place]. Employed full-time. [employer]. Highest education level: none-8th grade. Gender identity: Female. Gender of partner(s): male. Teresa Gay " social history reviewed E&M reviewed today Teresa Gay " passive cigarette smoke exposure No Teresa Gay " smoking status former smoker Teresa Sernarera sex at female Jeannine Shirley " social history E&M . Not homeless. Born in [facility]. City: [facility]. State: [place]. Employed full-time. [employer]. Highest education level: none-8th grade. Gender identity: Female. Gender of partner(s): male. Jeannine Shirley " social history reviewed E&M reviewed today Jeannine Shirley " drug use, illicit Never Jeannine Casper " alcohol use Currently Jeannine Casper " passive cigarette smoke exposure No Jeannine Casper " smoking status former smoker Jeannine Casper social history E&M . Not homeless. Born in [facility]. City: [facility]. State: [place]. Employed full-time. [employer]. Highest education level: none-8th [...] ID [facility] [employer] Other [id number] [facility] Fee - Cat 3 Commercial insurance company [employer] Other [id number] Sliding Fee Scale Commercial insurance company [id number] ADVANCE DIRECTIVES No Information Available TREATMENT PLAN [...] l - Est Patient Exp Problem - 97964 Est Patient Exp Problem - 05231 General Patient Education Est Patient Exp Problem - 98907 Nurse/Nurse Coordinator Est Patient Well Exam (40 - 64 Yrs) - 08351 HEMOGLOBIN A1C - In House Glucose Stick Est Patient Exp Problem - 11580 Prescription Assistance (Non-HIV) Est Patient Exp Problem - 92460 Est Patient Exp Problem - 77977 Prescription Assistance Est Patient Exp Problem - 44747 Dental - Internal Vision New Patient Detailed - 12311 HISTORY OF PROCEDURES Procedure Date Procedure Name Provider Procedure Notes Status HEMOGLOBIN A1C - In House Patrizia Martel completed Glucose Stick Patrizia Martel completed GOALS No Information Available HEALTH CONCERNS No Information Available
--- OUTSIDE RECORDS SUMMARY | 2019-09-04 10:09 | XMS REPORT ---
Author Author Admin, Royal Organization Unknown Address Unknown Phone Unavailable PROBLEMS [...] Provider Location Encounter Diagnosis - Ambulatory Encounter [facility] Services UNK - Ambulatory Encounter Naida Cordova [facility] UNK - Ambulatory Encounter Patrizia Martel [facility] UNK - Ambulatory Encounter Patrizia Rios [facility] UNK - Ambulatory Encounter Gisselle An [facility] UNK - Ambulatory Encounter Gisselle An [facility] UNK - Ambulatory En[facility] - Ambulatory Encounter Patrizia Martel [facility] UNK - Ambulatory Encounter Patrizia Colmenares [facility] UNK - Ambulatory Encounter Patrizia Martel [facility] UNK - Ambulatory Encounter LSJ Lab Support Desktop LinkLognitin Martel [facility] UNK - Ambulatory Encounter Patrizia Martel [facility] UNK - [facility] - [facility]ulatory Encounter Gisselle An [facility] UNK - Ambulatory Encounter Public Health Services Provider Freda Wren [facility] Services UNK - Ambulatory Encounter Patrizia Martel [facility] UNK - Ambulatory Encounter Patrizia MendezLognitin [facility] UNK - Ambulatory Encounter LSJ Lab Support Desktop LinkLogic Patrizia Martel [facility] UNK - Ambulatory Encounter Patrizia Martel [facility] UNK - Ambulatory Encounter Patrizia Martel [facility] UNK - [facility] - Ambulatory Encounter Gisselle An [facility] UNK - Ambulatory Encounter Public Health Services Provider Freda Wren [facility] UNK - Ambulatory Encounter Patrizia Martel [facility] UNK - Ambulatory Encounter Patrizia Martel LinkLognitin [facility] UNK - Ambulatory Encounter Gisselle An [facility] UNK - Ambulatory Encounter Public Health Services Provider Freda Wren [facility] UNK - Ambulatory Encounter LSJ Care Coordination Desktop Jennifer Waterman [facility] Contact Center UNK - Ambulatory Encounter Patrizia Paredes [facility] UNK - Ambulatory Encounter Patrizia Martel LinkLogic [facility] UNK - Ambulatory Encounter Fax Status [facility] - Ambulatory Encounter Fax Status [facility] UNK - Ambulatory Encounter Fax Status [facility] UNK - Ambulatory Encounter Fax Status [facility] UNK - Ambulatory Encounter Fax Status [facility] UNK - Ambulatory Encounter Patrizia Martel [facility] UNK - Ambulatory Encounter Patrizia Waterman [facility] UNK - Ambulatory Encounter Josie [facility] UNK - Ambulatory Encounter Josie [facility]regon [facility] UNK - Ambulatory Encounter Viki Martel [facility] UNK - Ambulatory Encounter Gisselle Olivo [facility] UNK - Ambulatory Encounter Ashley Markham [facility] UNK - Ambulatory Encounter Patrizia Obregon [facility] Hemoccult positive stool - Ambulatory Encounter Patrizia Martel [facility] UNK - Ambulatory Encounter LSJ Lab Support Desktop LinkLogic Patrizia Martel [facility] UNK - Ambulatory Encounter Mera [facility] UNK - Ambulatory Encounter Mera [facility] UNK - Ambulatory Encounter Jesica Dee [facility] Medicine UNK - Ambulatory Encounter Patrizia Paredes [facility]herence [facility] UNK - Ambulatory Encounter Patrizia Martel [facility] UNK - Ambulatory Encounter Patrizia Martel [facility] UNK - Ambulatory Encounter Patrizia Martel [facility] UNK - Ambulatory Encounter LSJ Lab Support Desktop LinkLogic Patrizia Martel [facility] UNK - Ambulatory Encounter LSJ Lab Support Desktop LinkLogic Patrizia Martel [facility] UNK - Ambulatory Encounter Patrizia Paredes [facility] UNK - Ambulatory Encounter LSJ Lab Support Desktop LinkLogic Patrizia Martel [facility] UNK - Ambulatory Encounter Patrizia Martel [facility] UNK - Ambulatory Encounter Patrizia Rodriguez Peacock Ashley Markham Waqas Yanes [facility] Annual examMammogram yearly screeningCandidal vaginitisDysuriaColon Cancer Screening - Ambulatory Encounter Gisselle An [facility] UNK - Ambulatory Encounter Patrizia Martel [facility] UNK - Ambulatory Encounter Patrizia Martel [facility] UNK - [facility] - [facility]ulatory Encounter Noemy [facility] UNK - Ambulatory Encounter Noemy [facility] UNK - Ambulatory Encounter Patrizia Martel [facility] UNK - Ambulatory Encounter Patrizia Martel [facility] UNK - Ambulatory Encounter Patrizia Manning [facility] UNK - Ambulatory Encounter Pinky Lechuga [facility] UNK - Ambulatory Encounter Pinky Alexandrea [facility] UNK - Ambulatory Encounter Patrizia Martel [facility] UNK - Ambulatory Encounter Patrizia Gay [facility] Foot pain, left - Ambulatory Encounter Tomeka Martel [facility] UNK - Ambulatory Encounter Tomeka Martel [facility] UNK - Ambulatory Encounter Patrizia Martel [facility] UNK - Ambulatory Encounter Patrizia Martel [facility] UNK - Ambulatory Encounter Mary Farias [facility] UNK - Ambulatory Encounter Patrizia Gay [facility] Obesity - Ambulatory Encounter Jensanket Farias [facility] UNK - Ambulatory Encounter Patrizia Colmenares [facility] UNK - Ambulatory Encounter Jensanket Farias [facility] UNK - Ambulatory Encounter Jensanket Farias [facility] UNK - Ambulatory Encounter Patrizia Martel [facility] UNK - Ambulatory Encounter Patrizia Ramon Jen Shirley [facility] UNK - Ambulatory Encounter Fax Status [facility] UNK - Ambulatory Encounter Fax Status LinkLogic [facility] UNK - Ambulatory Encounter Fax Status LinkLogic [facility] UNK - Ambulatory Encounter Patrizia Martel [facility] Hyperlipidemia - Ambulatory Encounter Patrizia Martel [facility] Diabetes mellitus, type II - Ambulatory Encounter Patrizia Martel [facility] UNK - Ambulatory Encounter LSJ Lab Support Desktop Dedra Martel [facility] UNK - Ambulatory Encounter Patrizia Martel [facility] UNK - Ambulatory Encounter Patrizia Bowlinggy [facility] HypertensionAllergic rhinitisBack painShortness of breath - Ambulatory Encounter Toshia Saez [facility] UNK - Ambulatory Encounter Pinky Lechuga [facility] UNK - Ambulatory Encounter Pinky Lechuga [facility] UNK - Ambulatory Encounter Jaylin Bills [facility] Adult Medicine UNK - Ambulatory Encounter Jaylin Bills [facility] Adult Medicine UNK - Ambulatory Encounter Maria Simmons [facility] UNK - Ambulatory Encounter Sabianist [facility] - [facility]ulatory Encounter Sabianist Preload [facility] UNK - Ambulatory Encounter Sabianist Preload [facility] UNK - Ambulatory Encounter Sabianist Preload [facility] UNK - Ambulatory Encounter Sabianist Preload [facility] UNK - Ambulatory Encounter Sabianist Preload [facility] UNK - Ambulatory Encounter Sabianist Preload [facility] UNK - Ambulatory Encounter Sabianist Preload [facility] UNK - Ambulatory Encounter Sabianist Preload [facility] UNK - Ambulatory Encounter Sabianist Preload [facility] UNK - Ambulatory Encounter Sabianist Preload [facility] UNK - Ambulatory Encounter Sabianist Preload [facility] UNK - Ambulatory Encounter Sabianist Preload [facility]ic [place] [facility] UNK - Ambulatory Encounter Sabianist Preload [facility]Logic [place] [facility] UNK - Ambulatory Encounter Sabianist Preload [facility]Logic [place] [facility] UNK - Ambulatory Encounter Sabianist Preload [facility]Logic [place] [facility] UNK - Ambulatory Encounter Sabianist Preload [facility]Logic [place] [facility] UNK - Ambulatory Encounter Sabianist Preload LinkLogic [facility] UNK - Ambulatory Encounter Sabianist Preload LinkLogic [place] [facility] UNK - Ambulatory Encounter Sabianist Preload LinkLogic [facility] UNK - Ambulatory Encounter Sabianist Preload [facility]Logic [place] [facility] UNK - Ambulatory Encounter Sabianist Preload LinkLogic [place] [facility] UNK - Ambulatory Encounter Sabianist Preload LinkLogic [facility] UNK - Ambulatory Encounter Sabianist Preload LinkLogic [facility] UNK - Ambulatory Encounter Sabianist Preload LinkLogic [facility] UNK - Ambulatory Encounter Sabianist Preload [facility]Log[facility] [place] [facility] UNK - Ambulatory Encounter Sabianist Preload [facility]Logic [place] [facility] UNK - Ambulatory Encounter Sabianist Preload [facility]Logic [facility] UNK - Ambulatory Encounter Sabianist Preload LinkLogic [facility] UNK - Ambulatory Encounter Sabianist Preload LinkLogic [facility] UNK - Ambulatory Encounter Sabianist Preload [facility] [place] [facility] UNK - Ambulatory Encounter Sabianist Preload [facility] [place] [facility] UNK - Ambulatory Encounter Sabianist Preload [facility] [place] [facility] UNK - Ambulatory Encounter Sabianist Preload [facility] [place] [facility] UNK - Ambulatory Encounter Sabianist Preload [facility]Logic [place] [facility] UNK - Ambulatory Encounter Sabianist Preload [facility]Logic [place] [facility] UNK - Ambulatory Encounter Sabianist Preload [facility]Logic [place] [facility] UNK - Ambulatory Encounter Sabianist Preload LinkLogic [place] [facility] UNK - Ambulatory Encounter Sabianist Preload [facility] [place] [facility] UNK - Ambulatory Encounter Sabianist Preload [facility] [place] [facility] UNK - Ambulatory Encounter Sabianist Preload [facility]ic [place] [facility] UNK - Ambulatory Encounter Sabianist Preload [facility]Logic [place] [facility] UNK - Ambulatory Encounter Sabianist Preload [facility]Logic [place] [facility] UNK - Ambulatory Encounter Sabianist Preload [facility]Logic [place] [facility] UNK - Ambulatory Encounter Sabianist Preload [facility]Log[facility] [place] [facility] UNK - Ambulatory Encounter Sabianist Preload [facility]Log[facility] [place] [facility] UNK - Ambulatory Encounter Sabianist Preload [facility]Logic [place] [facility] UNK - Ambulatory Encounter Sabianist Preload [facility]Logic [facility] UNK - Ambulatory Encounter Sabianist Preload [facility]Log[facility] UNK - Ambulatory Encounter Sabianist Preload [facility]Logic [place] [facility] UNK - Ambulatory Encounter Sabianist Preload [facility]Log[facility] UNK - Ambulatory Encounter Sabianist Preload [facility] UNK - Ambulatory Encounter Sabianist Preload [facility]Logic [place] [facility] UNK - Ambulatory Encounter Sabianist Preload LinkLogic [place] [facility] UNK - Ambulatory Encounter Sabianist Preload LinkLogic [facility] UNK - Ambulatory Encounter Sabianist Preload LinkLogic [facility] UNK - Ambulatory Encounter Sabianist Preload LinkLogic [facility] UNK - Ambulatory Encounter Sabianist Preload [facility] UNK - Ambulatory Encounter Sabianist Preload LinkLogic [facility] UNK - Ambulatory Encounter Sabianist Preload LinkLogic [facility] UNK - Ambulatory Encounter Sabianist Preload LinkLogic [facility] UNK - Ambulatory Encounter Sabianist Preload [facility] UNK - Ambulatory Encounter Sabianist Preload [facility] [place] [facility] UNK - Ambulatory Encounter Sabianist Preload [facility] UNK - Ambulatory Encounter Sabianist Preload [facility] UNK - Ambulatory Encounter Sabianist Preload [facility] UNK - Ambulatory Encounter Sabianist Preload [facility] UNK - Ambulatory Encounter Sabianist Preload LinkLogic [facility] UNK - Ambulatory Encounter Sabianist Preload [facility] UNK - Ambulatory Encounter Sabianist Preload [facility] UNK - Ambulatory Encounter Sabianist Preload [facility] UNK - Ambulatory Encounter Sabianist Preload LinkLogic [facility] UNK - Ambulatory Encounter Sabianist Preload [facility] UNK - Ambulatory Encounter Sabianist Preload [facility] UNK - Ambulatory Encounter Sabianist Preload [facility] UNK - Ambulatory Encounter Sabianist Preload [facility] UNK - Ambulatory Encounter Sabianist Preload [facility] UNK - Ambulatory Encounter Sabianist Preload [facility] UNK - Ambulatory Encounter Sabianist Preload [facility] UNK - Ambulatory Encounter Sabianist Preload [facility] UNK - Ambulatory Encounter Sabianist Preload [facility] UNK VITAL SIGNS Date Observation Value [...] " respiratory rate E&M 16 /min Gabriella Farleyrez " blood pressure, diastolic 91 mm[Hg] Gabriella Farleyrez " blood pressure, systolic 150 mm[Hg] Gabriella Farleyrez " oxygen saturation, oximetry 95 % Gabriella Farleyrez " weight E&M 223 lbs. Gabriella Rios " weight in kilograms E&M 101.36 kg Gabriella Farleyrez " height E&M 60.20 [in_i] Gabriella Farleyrez " height in centimeters E&M 152.91 cm Gabriella Farleyrez " temperature site oral Gabriella Farleyrez " method used to obtain blood pressure automatic Gabriella Farleyrez " Blood Pressure Position 01 sitting Gabriella [...] in centimeters E&M 152.91 cm Ashley Markham temperature site oral Gabriella Rios " method used to obtain blood pressure automatic Gabriella Rios " Blood Pressure Position 01 sitting Gabriella Rios " blood pressure, site #1 left arm Gabriellauri Rios " oxygen saturation, oximetry 95 % Gabriellauri Rios " blood pressure, diastolic 87 mm[Hg] Gabriella Gabriel " blood pressure, systolic 144 mm[Hg] Gabriella Rios " respiratory rate E&M 15 /min Gabriellauri Rios " pulse rate E&M 68 /min Gabriellauri Rios " temperature E&M 98.1 [degF] Gabrielal Gabriel " weight E&M 219.60 lbs. Gabriella Edmondsierrez " weight in kilograms E&M 99.82 kg Gabriella Edmondsierrez " height E&M 60.20 [in_i] Gabriella Edmondsierrez " height in centimeters E&M 152.91 cm Gabriella Gabriel blood pressure, diastolic, second observation 88 mm[Hg] Jennifer Peacock " blood pressure, systolic, second observation 142 mm[Hg] Jennifer Ayush " pulse rate #2 73 Jennifer Peacock " oxygen saturation, oximetry 94 % Jennifer Peacock " blood pressure, diastolic 91 mm[Hg] Jennifer Ayush " blood pressure, systolic 140 mm[Hg] Jennifer Ayush " respiratory rate E&M 18 /min Jennifer [...] site #1 left arm Gabriella Rios " weight E&M 219.40 lbs. Gabriella Rios [...] Teresa Gay oxygen saturation, oximetry 96 % Teresaus Martinra " method used to obtain blood pressure automatic Teresa Martinra " Blood Pressure Position 01 sitting Teresa [...] in centimeters E&M 166.37 cm Teresa Gay respiratory rate #2 17.25 Jeannine Casper " pulse rate #2 69 Jeannine Casper " blood pressure, diastolic, second observation 84 mm[Hg] Jeannine Casper " blood pressure, systolic, second observation 176 mm[Hg] Jeannine Casper " oxygen saturation, oximetry 95 % Jeannine Casper " method used to obtain blood pressure automatic Jeannine Casper " Blood Pressure Position 01 sitting Jeannine Casper " blood pressure, site #1 left arm Jeannine Casper " blood pressure, diastolic 100 mm[Hg] Jeannine Casper " blood pressure, systolic 150 mm[Hg] Jeannine Casper " respiratory rate E&M 18.25 /min Jeannine Casper " pulse rate E&M 73 /min Jeannine Casper " temperature site oral Jeannine Casper " temperature E&M 98.1 [degF] Jeannine Casper " weight E&M 224.60 lbs. Jeannine Casper " weight in kilograms E&M 102.09 kg Jeannine Casper " height E&M 65.50 [in_i] Jeannine Casper " height in centimeters E&M 166.37 cm Jeannine Shirley temperature site oral Gabriella Gabriel " method used to obtain blood pressure automatic Gabriella Rios " Blood Pressure Position 01 sitting Gabriella Rios " blood pressure, site #1 right arm Gabriella Gabriel " oxygen saturation, oximetry 97 % Gabriella Gabriel " blood pressure, diastolic 111 mm[Hg] Gabriella Gabriel " blood pressure, systolic 177 mm[Hg] Gabrilela Gabriel " respiratory rate E&M 16 /min Gabriella Gabriel " pulse rate E&M 76 /min Gabriella Gabriel " temperature E&M 97.9 [degF] Gabriella Gabriel " height E&M 65.50 [in_i] Gabriellauri Rios " height in centimeters E&M 166.37 cm Gabriella Gabriel " weight E&M 225.38 lbs. Gabriella Gabriel " weight in kilograms E&M 102.45 kg Gabriella Gabriel pulse rate E&M 60 /min LinkLog " blood pressure, systolic 140 mm[Hg] LinkLogic [...] Gabriella Rios blood glucose, random 124 mg/dL [facility] blood glucose, random 137 mg/dL [facility] thyroid stimulating hormone, serum 1.590 u[iU]/mL [...] Gabriella Rios " Nutrition intervention T Gabriella Gabriel " drug use, illicit Never Gabriella Rios " alcohol use Previously Gabriella Rios " social history E&M . Not homeless. Born in [facility]. City: [facility]. State: [place]. Employed full-time. [employer]. Highest education level: none-8th grade. Gender identity: Female. Gender of partner(s): male. Gabriella Gabriel " social history reviewed E&M reviewed today Gabriella Rios " passive cigarette smoke exposure No Gabriella Rios " smoking status former smoker Gabriella Farleyrez drug use, illicit Never Ashley Markham " alcohol use Previously Ashley Markham " social history E&M . Not homeless. Born in [facility]. City: [facility]. State: [place]. Employed full-time. [employer]. Highest education level: none-8th grade. Gender identity: [...] homeless. Born in [facility]. City: [facility]. State: [place]. Employed full-time. [employer]. Highest education level: none-8th grade. Gender identity: Female. Gender of partner(s): male. Ashley Markham " social history reviewed E&M reviewed today Ashley Markham " passive cigarette smoke exposure No Ashley Markham " smoking status former smoker Ashleylisa HoyosMarkham " Exercise Program Referral T Ashley Markham " Weight Management Counseling Provided T Ashley Markham " Nutrition intervention T Ashley Markham time of call 02/21/2019 9:50 AM Jus Waterman Lung Cancer Screening - 15 year tobacco use history Yes Viki Pallavi Exercise Program Referral T Gabriellauri Rios " Weight Management Counseling Provided T Gabriella Rios " Nutrition intervention T Gabriella Gabriel " drug use, illicit Never Gabriella Rios " alcohol use Previously Gabriella Rios " social history E&M . Not homeless. Born in [facility]. City: [facility]. State: [place]. Employed full-time. [employer]. Highest education level: none-8th [...] homeless. Born in [facility]. City: [facility]. State: [place] Employed full-time. [employer]. Highest education level: none-8th [...] . Not homeless. Born in [place]. City: [facility]. State: [place] Employed full-time. [employer]. Highest education level: none-8th grade. Gender identity: Female. Gender of partner(s): male. Gabriella Rios " social history reviewed E&M reviewed today Gabriella Farleyrez " passive cigarette smoke exposure No Gabriella Rios " smoking status former smoker Gabriella Farleyrez drug use, illicit Never Teresa Gay " alcohol use Currently Teresa Gay " social history E&M . Not homeless. Born in [facility]. City: [facility]. State: [place]. Employed full-time. [employer]. Highest education level: none-8th [...] homeless. Born in [facility]. City: [facility]. [place]: [place] Employed full-time. [employer]. Highest education level: none-8th grade. Gender identity: Female. Gender of partner(s): male. Teresa Gay " social history reviewed E&M reviewed today Teresa Gay " passive cigarette smoke exposure No Teresa Gay " smoking status former smoker Teresa Gay sex at female Jeannine Shirley " social history E&M . Not homeless. Born in [facility]. City: [facility]. [place]: [place] Employed full-time. [employer]. Highest education level: none-8th [...] homeless. Born in [facility]. City: [facility]. [place]: [place] Employed full-time. [employer]. Highest education level: none-8th [...] Rios smoking status Current some day smoker LinkLog [...] assessment of judgment and insight E&M limited Aptrizia Tahmina " Generalized Anxiety Disorder Questionnaire - [...] affect E&M no depression, anxiety, or agitation Patriziamelinda Martel " Generalized Anxiety Disorder Questionnaire - [...] Disorder Questionnaire - Question 2 0 Jeannine Casper " Generalized Anxiety Disorder Questionnaire - Question 1 0 Jeannine Casper assessment of judgment and insight E&M intact Patrizia Martel " assessment of mood and affect E&M no depression, anxiety, or agitation Patrizia Martel " Generalized Anxiety Disorder Questionnaire - Question 2 0 Gabriella Gabriel " Generalized Anxiety Disorder Questionnaire - Question 1 0 Gabriella Gabriel MEDICAL EQUIPMENT No Information Available FAMILY HISTORY No Information Available INSURANCE PROVIDERS Payer name Policy type / Coverage type Covered republican ID Expanded Primary Health Care Mookie Other [id number] Sliding Fee - Cat 3 Commercial insurance company Expanded [facility] Mookie Other [id number] Sliding Fee Scale Commercial insurance company [id number] ADVANCE DIRECTIVES No Information Available TREATMENT PLAN [...] l - Est Patient Exp Problem - 75081 Est Patient Exp Problem - 30898 Est Patient Exp Problem - 48447 General Patient Education Est Patient Exp Problem - 83412 Nurse/Nurse Coordinator Est Patient Well Exam (40 - 64 Yrs) - 64537 HEMOGLOBIN A1C - In House Glucose Stick Est Patient Exp Problem - 64088 Prescription Assistance (Non-HIV) Est Patient Exp Problem - 69320 Est Patient Exp Problem - 54940 Prescription Assistance Est Patient Exp Problem - 33019 Dental - Internal Vision New Patient Detailed - 24396 HISTORY OF PROCEDURES Procedure Date Procedure Name Provider Procedure Notes Status HEMOGLOBIN A1C - In House Patrizia Martel completed Glucose Stick Patrizia Martel completed GOALS No Information Available HEALTH CONCERNS No Information Available
--- OUTSIDE RECORDS SUMMARY | 2019-09-04 10:10 | XMS REPORT ---
Author Author Admin, Troy Organization Unknown Address Unknown Phone Unavailable PROBLEMS [...] Encounter Diagnosis - Ambulatory Encounter Patrizia Martel [facility] UNK - Ambulatory Encounter Naida Cordova [facility] UNK - Ambulatory Encounter Naida Cordova [facility] UNK - Ambulatory Encounter Patrizia Martel [facility] UNK - Ambulatory Encounter Patrizia Rios [facility] UNK - Ambulatory Encounter Gisselle An [facility] UNK - Ambulatory Encounter Gisselle An [facility] UNK - Ambulatory Encounter [facility] - Ambulatory Encounter Patrizia Martel LinkLognitin [facility] UNK - Ambulatory Encounter Patrizia Martel LinkLognitin [facility] UNK - Ambulatory Encounter Patrizia Martel [facility] UNK - Ambulatory Encounter LSJ Lab Support Desktop LinkSidney Patrizia Martel [facility] UNK - Ambulatory Encounter Patrizia Martel [facility] UNK - [facility] - Ambulatory Encounter Gisselleliza An [facility] Practice UNK - Ambulatory Encounter Public Health Services Provider Freda Wren [facility] UNK - Ambulatory Encounter Patrizia Martel [facility] UNK - Ambulatory Encounter Patrizia Martel [facility] - Ambulatory Encounter LSJ Lab Support Desktop [facility] Patrizia Martel [facility] UNK - Ambulatory Encounter Patrizia Martel [facility] UNK - Ambulatory Encounter Patrizia Martel [facility] UNK - [facility] Encounter Gisselle An [facility] UNK - Ambulatory Encounter Public [facility] Provider Freda Wren [facility] UNK - Ambulatory Encounter Patrizia Martel [facility] UNK - Ambulatory Encounter Patrizia Martel LinkLognitin [facility] UNK - Ambulatory Encounter Gisselle An [facility] UNK - Ambulatory Encounter Public Health Services Provider Freda Wren [facility] UNK - Ambulatory Encounter LSJ Care Coordination Desktop [facility] UNK - Ambulatory Encounter Patrizia Paredes [facility] Practice UNK - Ambulatory Encounter Patrizia Martel LinkLogic [facility] UNK - Ambulatory Encounter Fax Status [facility] - Ambulatory Encounter Fax Status [facility] UN[facility] - Ambulatory Encounter Fax Status [facility] - Ambulatory Encounter Fax Status [facility] UNK - Ambulatory Encounter Fax Status [facility] UNK - Ambulatory Encounter Patrizia Martel [facility] UNK - Ambulatory Encounter Patrizia Waterman [facility] UNK - Ambulatory Encounter Josie [facility]regon [facility] - Ambulatory Encounter Josie [place] [facility] - Ambulatory Encounter Viki Martel [facility] UNK - Ambulatory Encounter Gisselle Mart[facility]nez [facility] UNK - Ambulatory Encounter Ashley Markham [facility] UNK - Ambulatory Encounter Patrizia Martel Josie Sabas [facility] Hemoccult positive stool - Ambulatory Encounter Patrizia Martel [facility] UNK - Ambulatory Encounter LSJ Lab Support Desktop LinkLogic Patrizia Martel [facility] UNK - Ambulatory Encounter Mera [facility] UNK - Ambulatory Encounter Mera [facility] UNK - Ambulatory Encounter Jesica Dee [facility] Adult Medicine UNK - Ambulatory Encounter [facility] - Ambulatory Encounter Patrizia Martel [facility] UNK - Ambulatory Encounter Patrizia Martel [facility] UNK - Ambulatory Encounter Patrizia Martle [facility] UNK - Ambulatory Encounter LSJ Lab Support Desktop LinkLogic Patrizia Martel [facility] UNK - Ambulatory Encounter LSJ Lab Support Desktop LinkLogic Patrizia Martel [facility] UNK - Ambulatory Encounter Patrizia Paredes MedAdherence [facility] UNK - Ambulatory Encounter LSJ Lab Support Desktop LinkLogic Patrizia Martel [facility] UNK - Ambulatory Encounter Patrizia Martel [facility] UNK - Ambulatory Encounter Patrizia Yanes [facility] Annual examMammogram yearly screeningCandidal vaginitisDysuriaColon Cancer Screening - Ambulatory Encounter Gisselle Juve [facility] UNK - Ambulatory Encounter Patrizia Martel [facility] UNK - Ambulatory Encounter Patrizia Martel [facility] UNK - [facility] - [facility] - Ambulatory Encounter Patrizia Martel [facility] UNK - Ambulatory Encounter Patrizia Martel [facility] UNK - Ambulatory Encounter Patrizia Reed [facility] UNK - Ambulatory Encounter Pinky Lechuga [facility] UNK - Ambulatory Encounter Pinky Lechuga [facility] UNK - Ambulatory Encounter Patrizia Martel [facility] UNK - Ambulatory Encounter Patrizia Gay [facility] Foot pain, left - Ambulatory Encounter Tomeka Martel [facility] UNK - Ambulatory Encounter Tomeka Martel [facility] UNK - Ambulatory Encounter Patrizia Martel LinkLognitin [facility] UNK - Ambulatory Encounter Patrizia Martel [facility] UNK - Ambulatory Encounter Mary Farias [facility] UNK - Ambulatory Encounter Patrizia Gay [facility] Obesity - Ambulatory Encounter Jensanket Farias [facility] UNK - Ambulatory Encounter [facility]ulatory Encounter Jensanket Farias [facility] UNK - Ambulatory Encounter Jen Farias [facility] UNK - Ambulatory Encounter Patrizia Martel [facility] UNK - Ambulatory Encounter Patrizia Ramon Jen Paez Casper [facility] UNK - Ambulatory Encounter Fax Status LinkLogic [facility] UNK - Ambulatory Encounter Fax Status [facility] UNK - Ambulatory Encounter Fax Status [facility] UNK - Ambulatory Encounter Patrizia Martel [facility] Hyperlipidemia - Ambulatory Encounter Patrizia Martel [facility] Diabetes mellitus, type II - Ambulatory Encounter Patrizia Martel [facility] UNK - Ambulatory Encounter LSJ Lab Support Desktop Dedra Martel [facility] UNK - Ambulatory Encounter Patrizia Martel [facility] UNK - Ambulatory Encounter Patrizia Bowser [facility] HypertensionAllergic rhinitisBack painShortness of breath - Ambulatory Encounter Toshia Saez [facility] UNK - Ambulatory Encounter Pinky Lechuga [facility] UNK - Ambulatory Encounter Pinky Lechuga [facility] UNK - Ambulatory Encounter Jaylin Bills [facility] Adult Medicine UNK - Ambulatory Encounter Jaylin Bills [facility] Adult Medicine UNK - Ambulatory Encounter Maria Simmons [facility] UNK - Ambulatory Encounter Sikh Preload [facility] - Ambulatory Encounter Sikh Preload [facility] - Ambulatory Encounter Sikh Preload [facility] - Ambulatory Encounter Sikh Preload [facility] - Ambulatory Encounter Sikh Preload [facility] - Ambulatory Encounter Sikh Preload [facility] - Ambulatory Encounter Sikh Preload [facility] - Ambulatory Encounter Sikh Preload [facility] - Ambulatory Encounter Sikh Preload [facility] - Ambulatory Encounter Sikh Preload [facility] - Ambulatory Encounter Sikh Preload [facility] - Ambulatory Encounter Sikh Preload LinkLogic [facility] Practice UNK - Ambulatory Encounter Sikh Preload LinkLogic [facility] Practice UNK - Ambulatory Encounter Sikh Preload LinkLogic [facility] UNK - Ambulatory Encounter Sikh Preload LinkLogic [facility] UNK - Ambulatory Encounter Sikh Preload LinkLogic [facility] Practice UNK - Ambulatory Encounter Sikh Preload LinkLogic [facility] UNK - Ambulatory Encounter Sikh Preload LinkLogic [facility] UNK - Ambulatory Encounter Sikh Preload LinkLogic [facility] UNK - Ambulatory Encounter Sikh Preload LinkLogic [facility] Practice UNK - Ambulatory Encounter Sikh Preload LinkLogic [facility] UNK - Ambulatory Encounter Sikh Preload LinkLogic [facility] UNK - Ambulatory Encounter Sikh Preload LinkLogic [facility] UNK - Ambulatory Encounter Sikh Preload LinkLogic [facility] UNK - Ambulatory Encounter Sikh Preload LinkLogic [facility] UNK - Ambulatory Encounter Sikh Preload LinkLogic [facility] UNK - Ambulatory Encounter Sikh Preload LinkLogic [facility] UNK - Ambulatory Encounter Sikh Preload LinkLogic [facility] UNK - Ambulatory Encounter Sikh Preload LinkLogic [facility] UNK - Ambulatory Encounter Sikh Preload LinkLogic [facility] UNK - Ambulatory Encounter Sikh Preload LinkLogic [facility] UNK - Ambulatory Encounter Sikh Preload LinkLogic [facility] UNK - Ambulatory Encounter Sikh Preload LinkLogic [facility] UNK - Ambulatory Encounter Sikh Preload LinkLogic [facility] UNK - Ambulatory Encounter Sikh Preload LinkLogic [facility] UNK - Ambulatory Encounter Sikh Preload LinkLogic [facility] UNK - Ambulatory Encounter Sikh Preload LinkLogic [facility] UNK - Ambulatory Encounter Sikh Preload LinkLogic [facility] UNK - Ambulatory Encounter Sikh Preload LinkLogic [facility] UNK - Ambulatory Encounter Sikh Preload LinkLogic [facility] UNK - Ambulatory Encounter Sikh Preload LinkLogic [facility] UNK - Ambulatory Encounter Sikh Preload LinkLogic [facility] UNK - Ambulatory Encounter Sikh Preload LinkLogic [facility] UNK - Ambulatory Encounter Sikh Preload LinkLogic [facility] UNK - Ambulatory Encounter Sikh Preload LinkLogic [facility] UNK - Ambulatory Encounter Sikh Preload LinkLogic [facility] UNK - Ambulatory Encounter Sikh Preload LinkLogic [facility] UNK - Ambulatory Encounter Sikh Preload LinkLogic [facility] UNK - Ambulatory Encounter Sikh Preload LinkLogic [facility] UNK - Ambulatory Encounter Sikh Preload LinkLogic [facility] UNK - Ambulatory Encounter Sikh Preload LinkLogic [facility] UNK - Ambulatory Encounter Sikh Preload LinkLogic [facility] UNK - Ambulatory Encounter Sikh Preload LinkLogic [facility] UNK - Ambulatory Encounter Sikh Preload LinkLogic [facility] UNK - Ambulatory Encounter Sikh Preload LinkLogic [facility] UNK - Ambulatory Encounter Sikh Preload LinkLogic [facility] UNK - Ambulatory Encounter Sikh Preload LinkLogic [facility] UNK - Ambulatory Encounter Sikh Preload LinkLogic [facility] UNK - Ambulatory Encounter Sikh Preload LinkLogic [facility] UNK - Ambulatory Encounter Sikh Preload LinkLogic [facility] UNK - Ambulatory Encounter Sikh Preload LinkLogic [facility] UNK - Ambulatory Encounter Sikh Preload LinkLogic [facility] UNK - Ambulatory Encounter Sikh Preload LinkLogic [facility] UNK - Ambulatory Encounter Sikh Preload LinkLogic [facility] UNK - Ambulatory Encounter Sikh Preload LinkLogic [facility] UNK - Ambulatory Encounter Sikh Preload LinkLogic [facility] UNK - Ambulatory Encounter Sikh Preload LinkLogic [facility] UNK - Ambulatory Encounter Sikh Preload [facility] UNK - Ambulatory Encounter Sikh Preload [facility] UNK - Ambulatory Encounter Sikh Preload [facility] - Ambulatory Encounter Sikh Preload LinkLogic [facility] UNK - Ambulatory Encounter Sikh Preload [facility] UNK - Ambulatory Encounter Sikh Preload [facility] - Ambulatory Encounter Sikh Preload [facility] - Ambulatory Encounter Sikh Preload [facility] UN[facility] - Ambulatory Encounter Sikh Preload [facility] UNK - Ambulatory Encounter Sikh Preload [facility] - Ambulatory Encounter Sikh Preload [facility] UN[facility] - Ambulatory Encounter Sikh Preload [facility] UN[facility] - Ambulatory Encounter Sikh Preload [facility] UN[facility] - Ambulatory Encounter Sikh Preload [facility] UNK VITAL SIGNS Date Observation Value Provider BP diastolic #1 91 mm[Hg] Gabriella Rios " BP systolic #1 156 mm[Hg] Gabriella Rios " pulse rate #2 72 Gabriella Rios " blood pressure, diastolic, second observation 91 mm[Hg] Gabriella Rios " blood pressure, systolic, second observation 150 mm[Hg] Gabriella Rios " temperature E&M 98.4 [degF] Gabriella Rios " pulse rate E&M 73 /min Gabriella Edmondsierrez " respiratory rate E&M 16 /min Gabriella Rios " blood pressure, diastolic 91 mm[Hg] Gabriella Rios " blood pressure, systolic 150 mm[Hg] Gabriella Rios " oxygen saturation, oximetry 95 % Gabriella Farleyrez " weight E&M 223 lbs. Gabriella Farleyrez " weight in kilograms E&M 101.36 kg Gabriella Farleyrez " height E&M 60.20 [in_i] Gabriella Farleyrez " height in centimeters E&M 152.91 cm Gabriella Farleyrez " temperature site oral Gabriella Farleyrez " method used to obtain blood pressure automatic Gabriella Edmondsierrez " Blood Pressure Position 01 sitting Gabriella Farleyrez " blood pressure, site #1 left arm [...] cm Ashley Markham temperature site oral Gabriella Edmondsierrez " method used to obtain blood pressure automatic Gabriella Rios " Blood Pressure Position 01 sitting Gabriella Rios " blood pressure, site #1 left arm Gabriella Rios " oxygen saturation, oximetry 95 % Gabriella Rios " blood pressure, diastolic 87 mm[Hg] Gabriella Rios " blood pressure, systolic 144 mm[Hg] Gabriellauri Rios " respiratory rate E&M 15 /min Gabriella Rios " pulse rate E&M 68 /min Gabriellauri Rios " temperature E&M 98.1 [degF] Gabriellauri Rios " weight E&M 219.60 lbs. Gabriella Gabriel " weight in kilograms E&M 99.82 kg Gabriella Gabriel " height E&M 60.20 [in_i] Gabriella Gabriel " height in centimeters E&M 152.91 cm Gabriellauri Rios blood pressure, diastolic, second observation 88 mm[Hg] Jennifer Peacock " blood pressure, systolic, second observation 142 mm[Hg] Jennifer Peacock " pulse rate #2 73 Jennifer Peacock [...] Peacock " Blood Pressure Position 01 sitting Jennifermelinda Peacock " method used to obtain blood pressure automatic Jennifer Peacock " blood pressure, site #1 left arm Jennifer Geeales oxygen saturation, oximetry 94 % Gabriella Rios [...] in centimeters E&M 166.37 cm Teresa Sernarera oxygen saturation, oximetry 96 % Teresa Gay " method used to obtain blood pressure automatic Teresa Gay " Blood Pressure Position 01 sitting Teresa Gay " blood pressure, site #1 right arm Teresa Martinra " blood pressure, diastolic 90 mm[Hg] Teresa Gay " blood pressure, systolic 159 mm[Hg] Teresa Gay " respiratory rate E&M 17 /min Teresaus Gay " pulse rate E&M 69 /min Teresa Gay " temperature site oral Teresa Gay " temperature E&M 98.1 [degF] Teresa Gay " weight E&M 225 lbs. Teresa Gay " weight in kilograms E&M 102.27 kg Teresa Gay " height E&M 65.50 [in_i] Teresa Martinra " height in centimeters E&M 166.37 cm Teresa Gay respiratory rate #2 17.25 Jeannine Shirley " pulse rate #2 69 Jeannine Shirley " blood pressure, diastolic, second observation 84 mm[Hg] Jeannine Casper " blood pressure, systolic, second observation 176 mm[Hg] Jeannine Casper " oxygen saturation, oximetry 95 % Jeannine Casper " method used to obtain blood pressure automatic Jeannine Casper " Blood Pressure Position 01 sitting Jeannine Shirley " blood pressure, site #1 left arm Jeannine Shirley " blood pressure, diastolic 100 mm[Hg] Jeannine [...] 166.37 cm Jeannine Shirley temperature site oral Gabriellauri Rios " method used to obtain blood pressure automatic Gabriella Gabriel " Blood Pressure Position 01 sitting Gabriella Rios " blood pressure, site #1 right arm Gabriella Gabriel " oxygen saturation, oximetry 97 % Gabriellaluisito Rios " blood pressure, diastolic 111 mm[Hg] Gabriellauri Rios " blood pressure, systolic 177 mm[Hg] Gabriellauri Rios " respiratory rate E&M 16 /min Gabriellauri Rios " pulse rate E&M 76 /min Gabriellauri Rios " temperature E&M 97.9 [degF] Gabriella Rios " height E&M 65.50 [in_i] Gabriellauri Rios " height in centimeters E&M 166.37 cm Gabriellauri Rios " weight E&M 225.38 lbs. Gabriellauri Rios " weight in kilograms E&M 102.45 kg Gabriellauri Rios pulse rate E&M 60 /min LinkLogic " [...] glucose, 2 hours postprandial 207 mg/dL Gabriella Edmondsierrez hemoglobin A1C, blood, as % of total [...] Gabriella Rios blood glucose, random 124 mg/dL [facility] blood glucose, random 137 mg/dL [facility] thyroid stimulating hormone, serum 1.590 u[iU]/mL [...] MEDICATION USE Medication Instructions Dates Provider Comments TRULICITY 0.75 MG/0.5ML SUBCUTANEOUS SOLUTION PEN-INJECTOR Inject 0.75mg SC each week for diabetes Patrizia Martel AMLODIPINE BESYLATE 5 MG ORAL [...] history E&M . Not homeless. Born in [facility]. City: [place]. State: [place]. Employed full-time. [employer]. Highest education level: none-8th grade. Gender identity: Female. Gender of partner(s): male. Gabriella Rios " social history reviewed E&M reviewed today Gabriella Rios " passive cigarette smoke exposure No Gabriella Rios " smoking status former smoker Gabriella Gabriel drug use, illicit Never Ashley Markham " alcohol use Previously Ashley Markham " social history E&M . Not homeless. Born in [facility]. City: [place]. State: [place]. Employed full-time. [employer]. Highest education level: none-8th grade. Gender identity: [...] history E&M . Not homeless. Born in [facility]. City: [place]. State: [place]. Employed full-time. [employer]. Highest education level: none-8th grade. Gender identity: Female. Gender of partner(s): male. Ashley Hoyosendez " social history reviewed E&M reviewed today Ashleylisa HoyosMarkham " passive cigarette smoke exposure No Ashley [...] history E&M . Not homeless. Born in [facility]. City: [place]. State: [place]. Employed full-time. [employer]. Highest education level: none-8th [...] history E&M . Not homeless. Born in [facility]. City: [place]. State: [place]. Employed full-time. [employer]. Highest education level: none-8th [...] history E&M . Not homeless. Born in [facility]. City: [place]. State: [place]. Employed full-time. [employer]. Highest education level: none-8th grade. Gender identity: Female. Gender of partner(s): male. Gabriella Farleyrez " social history reviewed E&M reviewed today Gabriella Farleyrez " passive cigarette smoke exposure No Gabriella Farleyrez " smoking status former smoker Gabriella Farleyrez drug use, illicit Never Teresa Gay " alcohol use Currently Teresa Agy " social history E&M . Not homeless. Born in [facility]. City: [place]. State: [place]. Employed full-time. [employer]. Highest education level: none-8th grade. Gender identity: Female. Gender of partner(s): male. Teresa Gay " social history reviewed E&M reviewed today Teresa Gay " passive cigarette smoke exposure No Teresa Gay " smoking status former smoker Teresa Gay Exercise Program Referral Yunior Martel " Weight Management Counseling Provided Yunior Martel " Nutrition intervention T Patrizia Martel " drug use, illicit Never Teresa Gay " alcohol use Currently Teresa Gay " social history E&M . Not homeless. Born in [facility]. City: [place]. State: [place]. Employed full-time. [employer]. Highest education level: none-8th grade. Gender identity: Female. Gender of partner(s): male. Teresa Gay " social history reviewed E&M reviewed today Teresa Gay " passive cigarette smoke exposure No Teresa Gay " smoking status former smoker Teresa Gay sex at female Jeannine Shirley " social history E&M . Not homeless. Born in [facility]. City: [place]. State: [place]. Employed full-time. [employer]. Highest education level: none-8th grade. Gender identity: Female. Gender of partner(s): male. Jeannine Shirley " social history reviewed E&M reviewed today Jeannine Casper " drug use, illicit Never Jeannine Casper " alcohol use Currently Jeannine Casper " passive cigarette smoke exposure No Jeannine Casper " smoking status former smoker Jeannine Shirley social history E&M . Not homeless. Born in [facility]. City: [facility]. State: [place]. Employed full-time. [employer]. Highest education level: none-8th grade. Gender identity: [...] and affect E&M pleasant Patrizia Martel " mental status examination: orientation E&M oriented to time, place, and person Patrizia Martel " assessment of judgment and insight E&M intact Patrizia Martel " Generalized Anxiety Disorder Questionnaire - Question 2 0 Gabriella Rios " Generalized Anxiety Disorder Questionnaire - Question 1 0 Gabriella Rios assessment of mood and affect E&M pleasant Patrizia Martel " mental status examination: orientation E&M oriented to time, place, and person Patrizia Martel " assessment of judgment and insight E&M limited Patrizia Martel " Generalized Anxiety Disorder Questionnaire [...] name Policy type / Coverage type Covered green party ID [employer] [facility] [employer] [facility] [employer] Other [id number] Sliding Fee - Cat 3 Commercial insurance company [employer] Other [id number] Sliding Fee Scale Commercial insurance company [id number] ADVANCE DIRECTIVES No Information Available TREATMENT PLAN [...] l - Est Patient Exp Problem - 65626 Est Patient Exp Problem - 27159 Est Patient Exp Problem - 06789 General Patient Education Est Patient Exp Problem - 76680 Nurse/Nurse Coordinator Est Patient Well Exam (40 - 64 Yrs) - 32686 HEMOGLOBIN A1C - In House Glucose Stick Est Patient Exp Problem - 57785 Prescription Assistance (Non-HIV) Est Patient Exp Problem - 85121 Est Patient Exp Problem - 10675 Prescription Assistance Est Patient Exp Problem - 28202 Dental - Internal Vision New Patient Detailed - 05256 HISTORY OF PROCEDURES Procedure Date Procedure Name Provider Procedure Notes Status HEMOGLOBIN A1C - In House Patrizia Martel completed Glucose Stick Patrizia Martel completed GOALS No Information Available HEALTH CONCERNS No Information Available
--- OUTSIDE RECORDS SUMMARY | 2019-09-04 10:10 | XMS REPORT ---
Author Author Admin, [place] Organization Unknown Address Unknown Phone Unavailable PROBLEMS Condition Status Date Provider Notes Hemoccult positive stool active Patrizia Martel Colon Cancer Screening active Partizia Martel Dysuria active Patrizia Martel Candidal vaginitis [...] Provider Location Encounter Diagnosis - Ambulatory Encounter Gabriella Rios [facility] Practice UNK - Ambulatory Encounter Partizia Martel [facility] UNK - Ambulatory Encounter Patrizia Martel [facility] UNK - Ambulatory Encounter Patrizia Martel [facility] Family Practice UNK - Ambulatory Encounter Patrizia Rios [facility] UNK - Ambulatory Encounter Naida Cordova [facility] UNK - Ambulatory Encounter Naida Cordova [facility] UNK - Ambulatory Encounter Patrizia Martel [facility] UNK - Ambulatory Encounter Patrizia Cordova Gabriella Gabriel [facility] UNK - Ambulatory Encounter Gisselle An [facility] UNK - Ambulatory Encounter Gisselle An [facility] UNK - Ambulatory Encounter [facility]rizia Martel [facility] - Ambulatory Encounter Patrizia Martel [facility] UNK - Ambulatory [facility] - Ambulatory Encounter Patrizia Martel [facility] UNK - Ambulatory Encounter [facility] Lab Support Desktop LinkDiaz Martel [facility] UNK - Ambulatory Encounter Patrizia Martel [facility] UNK - [facility] Gisselle [facility] UNK - Ambulatory Encounter [facility] Provider [facility]a Wren [facility] UNK - Ambulatory Encounter Patrizia Martel [facility] UNK - Ambulatory Encounter [facility] UN[facility] - Ambulatory Encounter LS[facility] Lab Support Desktop Dedra Martel [facility] UNK - Ambulatory Encounter Patrizia Martel [facility] UNK - Ambulatory Encounter Patrizia Martel [facility] UNK - Ambulatory Encounter [facility]rizia [facility] - Ambulatory Encounter Gisselle An [facility] Practice UNK - Ambulatory Encounter [facility] Provider Freda Krause [facility] UNK - Ambulatory Encounter Patrizia Martel [facility] UNK - Ambulatory Encounter Patrizia Martel [facility] Practice UNK - Ambulatory Encounter Gisselle An [facility] UNK - Ambulatory Encounter [facility] Services Provider Freda Krause [facility] UNK - Ambulatory Encounter LSJ Care Coordination Desktop Jennifer Waterman [facility] Contact Center UNK - Ambulatory Encounter Patrizia Paredes [facility] Practice UNK - Ambulatory Encounter Patrizia aMrtel [facility] Practice UNK - Ambulatory Encounter Fax Status [facility] UNK - Ambulatory Encounter Fax Status [facility] UNK - Ambulatory Encounter Fax Status [facility] UNK - Ambulatory Encounter Fax Status [facility] UNK - Ambulatory Encounter Fax Status [facility] UNK - Ambulatory Encounter Patrizia Martel [facility] Practice UNK - Ambulatory Encounter Patrizia Tahmina Patrizia Tahmina Naida Waterman [facility] UNK - Ambulatory Encounter Josie Sabas [facility] UNK - Ambulatory Encounter Josie Sabas [facility] UNK - Ambulatory Encounter Vikisanket Martel [facility] UNK - Ambulatory Encounter Gisselle Juve [place] [facility] UNK - Ambulatory Encounter Ashley [facility] UNK - Ambulatory Encounter Patrizia Obregon [facility] Hemoccult positive stool - Ambulatory Encounter Patrizia Martel [facility] UNK - Ambulatory Encounter LSJ Lab Support Desktop LinkLogic Patrizia Martel [facility] UNK - Ambulatory Encounter M[facility] UNK - Ambulatory Encounter Mera [facility] UNK - Ambulatory Encounter Jesicajayro Dee [facility] Adult Medicine UNK - Ambulatory Encounter [facility]rizia [facility]aredes [facility] UNK - Ambulatory Encounter Patrizia Martel [facility] UNK - Ambulatory Encounter Patrizia Martel [facility] UNK - Ambulatory Encounter Patrizia Martel [facility] UNK - Ambulatory Encounter LSJ Lab Support Desktop LinkLogic Patrizia Martel [facility] UNK - Ambulatory Encounter [facility] Lab Support Desktop LinkDiaz Martel [facility] UNK - Ambulatory Encounter Patrizia Paredes [facility] UNK - Ambulatory Encounter LSJ Lab Support Desktop LinkDiaz Martel [facility] UNK - Ambulatory Encounter Patrizia Martel [facility] UNK - Ambulatory Encounter Patrizia Yanes [facility] Annual examMammogram yearly screeningCandidal vaginitisDysuriaColon Cancer Screening - Ambulatory Encounter Gisselle An [facility] UNK - Ambulatory Encounter [facility] En[facility]rizia Martel [facility] UN[facility] - Ambulatory Encounter Noemy [facility] UNK - Ambulatory Encounter Noemy [facility] Services UNK - Ambulatory [facility] - Ambulatory Encounter [facility] UNK - Ambulatory Encounter Patrizia Martel [facility] UNK - Ambulatory Encounter Patrizia Castelan [facility] UNK - Ambulatory Encounter Pinky Lechuga [facility] UNK - Ambulatory Encounter Pinky Lechuga [facility] UNK - Ambulatory Encounter Patrizia Martel [facility] UNK - Ambulatory Encounter [facility]rizia Vu [facility], left - Ambulatory Encounter Tomeka Martel [facility] UNK - Ambulatory Encounter Tomekaviv Martel [facility] UNK - Ambulatory Encounter Patrizia Martel [facility] UNK - Ambulatory Encounter Patrizia Martel [facility] UNK - Ambulatory Encounter Mary Farias [facility] UNK - Ambulatory Encounter Patrizia Gay [facility] Practice Obesity - Ambulatory Encounter Jensanket Farias [facility] UNK - Ambulatory Encounter Patrizia Martel [facility] UNK - Ambulatory Encounter Jen Farias [facility] UNK - Ambulatory Encounter Jen Jarrett [facility] UNK - Ambulatory Encounter Patrizia Martel [facility] UNK - Ambulatory Encounter Patrizia Castroa Jarrett Jeannine Casper [facility] UNK - Ambulatory Encounter Fax Status [facility] UNK - Ambulatory Encounter Fax Status [facility] UNK - Ambulatory Encounter Fax Status Link[facility] UNK - Ambulatory Encounter Patrizia Martel [facility] Hyperlipidemia - Ambulatory Encounter Patrizia Martel [facility] Diabetes mellitus, type II - Ambulatory Encounter Patrizia Martel [facility] UNK - Ambulatory Encounter LSJ Lab Support Desktop LinkLognitin Martel [facility] UNK - Ambulatory Encounter Patrizia Martel [facility] UNK - Ambulatory Encounter Patrizia Bowser [facility] HypertensionAllergic rhinitisBack painShortness of breath - Ambulatory Encounter Toshia Saez [facility] - [facility]ulatory Encounter Pinky Alexandrea [facility] UNK - Ambulatory Encounter Pinky Lechuga [facility] UNK - Ambulatory Encounter Jaylin Bills [facility] Adult Medicine UNK - Ambulatory Encounter Jaylin Bills [facility] Adult Medicine UNK - Ambulatory Encounter Maria Simmons [facility] UN[facility] - Ambulatory Encounter Roman Catholic Preload [facility] UNK - Ambulatory Encounter Roman Catholic Preload [facility] UNK - Ambulatory Encounter Roman Catholic Preload [facility] UNK - Ambulatory Encounter Roman Catholic Preload [facility] UNK - Ambulatory Encounter Roman Catholic Preload [facility] UNK - Ambulatory Encounter Roman Catholic Preload [facility] UNK - Ambulatory Encounter Roman Catholic Preload [facility] UNK - Ambulatory Encounter Roman Catholic Preload [facility]Log[facility] UNK - Ambulatory Encounter Roman Catholic Preload LinkLog[facility] UNK - Ambulatory Encounter Roman Catholic Preload [facility]Log[facility] UNK - Ambulatory Encounter Roman Catholic Preload [facility]Log[facility] UNK - Ambulatory Encounter Roman Catholic Preload [facility]Log[facility] UNK - Ambulatory Encounter Roman Catholic Preload LinkLogic [facility] UNK - Ambulatory Encounter Roman Catholic Preload LinkLogic [facility] UNK - Ambulatory Encounter Roman Catholic Preload LinkLogic [facility] UNK - Ambulatory Encounter Roman Catholic Preload LinkLogic [facility] UNK - Ambulatory Encounter Roman Catholic Preload [facility] UNK - Ambulatory Encounter Roman Catholic Preload [facility] UNK - Ambulatory Encounter Roman Catholic Preload [facility] UNK - Ambulatory Encounter Roman Catholic Preload [facility]Log[facility] UNK - Ambulatory Encounter Roman Catholic Preload [facility]Log[facility] UNK - Ambulatory Encounter Roman Catholic Preload LinkLogic [facility] UNK - Ambulatory Encounter Roman Catholic Preload [facility] UNK - Ambulatory Encounter Roman Catholic Preload [facility] UNK - Ambulatory Encounter Roman Catholic Preload [facility] Practice UNK - Ambulatory Encounter Roman Catholic Preload [facility] UNK - Ambulatory Encounter Roman Catholic Preload [facility] UNK - Ambulatory Encounter Roman Catholic Preload [facility] UNK - Ambulatory Encounter Roman Catholic Preload [facility] Practice UNK - Ambulatory Encounter Roman Catholic Preload [facility] UNK - Ambulatory Encounter Roman Catholic Preload [facility] UNK - Ambulatory Encounter Roman Catholic Preload [facility] UNK - Ambulatory Encounter Roman Catholic Preload [facility] UNK - Ambulatory Encounter Roman Catholic Preload [facility] UNK - Ambulatory Encounter Roman Catholic Preload [facility] UNK - Ambulatory Encounter Roman Catholic Preload [facility] UNK - Ambulatory Encounter Roman Catholic Preload [facility] UNK - Ambulatory Encounter Roman Catholic Preload [facility] UNK - Ambulatory Encounter Roman Catholic Preload [facility] UNK - Ambulatory Encounter Roman Catholic Preload [facility] UNK - Ambulatory Encounter Roman Catholic Preload [facility] UNK - Ambulatory Encounter Roman Catholic Preload [facility] UNK - Ambulatory Encounter Roman Catholic Preload [facility] UNK - Ambulatory Encounter Roman Catholic Preload [facility] UNK - Ambulatory Encounter Roman Catholic Preload [facility]Log[facility] UNK - Ambulatory Encounter Roman Catholic Preload [facility] UNK - Ambulatory Encounter Roman Catholic Preload [facility]Log[facility] UNK - Ambulatory Encounter Roman Catholic Preload LinkLog[facility] UNK - Ambulatory Encounter Roman Catholic Preload [facility] UNK - Ambulatory Encounter Roman Catholic Preload LinkLogic [facility] UNK - Ambulatory Encounter Roman Catholic Preload LinkLogic [facility] UNK - Ambulatory Encounter Roman Catholic Preload [facility]Log[facility] UNK - Ambulatory Encounter Roman Catholic Preload [facility] UNK - Ambulatory Encounter Roman Catholic Preload [facility] UNK - Ambulatory Encounter Roman Catholic Preload [facility] UNK - Ambulatory Encounter Roman Catholic Preload [facility] UNK - Ambulatory Encounter Roman Catholic Preload LinkLog[facility] UNK - Ambulatory Encounter Roman Catholic Preload [facility] UNK - Ambulatory Encounter Roman Catholic Preload [facility] UNK - Ambulatory Encounter Roman Catholic Preload [facility] UNK - Ambulatory Encounter Roman Catholic Preload [facility] UNK - Ambulatory Encounter Roman Catholic Preload [facility] UNK - Ambulatory Encounter Roman Catholic Preload [facility] UNK - Ambulatory Encounter Roman Catholic Preload [facility] UNK - Ambulatory Encounter Roman Catholic Preload [facility] UNK - Ambulatory Encounter Roman Catholic Preload LinkLog[facility] UNK - Ambulatory Encounter Roman Catholic Preload [facility] UNK - Ambulatory Encounter Roman Catholic Preload [facility] UNK - Ambulatory Encounter Roman Catholic Preload [facility] UNK - Ambulatory Encounter Roman Catholic Preload [facility] UNK - Ambulatory Encounter Roman Catholic Preload [facility] UNK - Ambulatory Encounter Roman Catholic Preload [facility] UNK - Ambulatory Encounter Roman Catholic Preload [facility] UNK - Ambulatory Encounter Roman Catholic Preload [facility] UNK - Ambulatory Encounter Roman Catholic Preload [facility] UNK - Ambulatory Encounter Roman Catholic Preload [facility] Practice UNK - Ambulatory Encounter Roman Catholic Preload [facility] UNK - Ambulatory Encounter Roman Catholic Preload [facility] UNK - Ambulatory Encounter Roman Catholic Preload [facility] UNK - Ambulatory Encounter Roman Catholic Preload [facility] UNK - Ambulatory Encounter Roman Catholic Preload [facility] UNK VITAL SIGNS Date Observation Value [...] pressure, site #1 left arm Gabriella Rios oxygen saturation, oximetry 95 % Elaine Pool [...] in centimeters E&M 152.91 cm Gabriella Farleyrez blood pressure, diastolic, second observation 88 mm[Hg] Jennifer Peacock " blood pressure, systolic, second observation 142 mm[Hg] Jennifer Peacock " pulse rate #2 73 Jennifer Peacock " oxygen saturation, oximetry 94 % Jennifermelinda Peacock " blood pressure, diastolic 91 mm[Hg] Jennifer Peacock " blood pressure, systolic 140 mm[Hg] Jennifer Peacock " respiratory rate E&M 18 /min Jennifermelinda Peacock " pulse rate E&M 77 /min Jennifer Peacock " temperature E&M 98.9 [degF] Jennifer Peacock " weight E&M 21.40 lbs. Jennifer Peacock " weight in kilograms E&M 9.73 kg Jennifermelinda Peacock " height E&M 60.20 [in_i] Jennifermelinda Peacock " height in centimeters E&M 152.91 cm Jennifermelinda Peacock " temperature site oral Jennifer Peacock [...] Gay " weight E&M 225 lbs. Teresa Sernarera " weight in kilograms E&M 102.27 kg Teresa Gay " height E&M 65.50 [in_i] Teresa Gay " height in centimeters E&M 166.37 cm Teresa Gay respiratory rate #2 17.25 Jeannine Shirley " pulse rate #2 69 Jeannine Shirley " blood pressure, diastolic, second observation 84 mm[Hg] Jeannine Shirley " blood pressure, systolic, second observation 176 mm[Hg] Jeannine Shirley " oxygen saturation, oximetry 95 % Jeannine Shirley " method used to obtain blood pressure automatic Jeannine Shirley " Blood Pressure Position 01 sitting Jeannine Shirley " blood pressure, site #1 left arm Jeannine Shirley " blood pressure, diastolic 100 mm[Hg] Jeannine Shirley " blood pressure, systolic 150 mm[Hg] Jeannine Shirley " respiratory rate E&M 18.25 /min Jeannine Shirley " pulse rate E&M 73 /min Jeannine Shirley " temperature site oral Jeannine Shirley " temperature E&M 98.1 [degF] Jeannine Shirley " weight E&M 224.60 lbs. Jeannine Shirley " weight in kilograms E&M 102.09 kg Jeannine Shirley " height E&M 65.50 [in_i] Jeannine Shirley " height in centimeters E&M 166.37 cm Jeannine Shirley temperature site oral Gabriella Rios " method used to obtain blood pressure automatic Gabriella Rios " Blood Pressure Position 01 sitting Gabriella Rios " blood pressure, site #1 right arm Gabriella Rios " oxygen saturation, oximetry 97 % Gabriella Rios " blood pressure, diastolic 111 mm[Hg] Gabriella Rios " blood pressure, systolic 177 mm[Hg] Gabriella Rios " respiratory rate E&M 16 /min Gabriella Rios " pulse rate E&M 76 /min Gabriella Rios " temperature E&M 97.9 [degF] Gabriella Rios " height E&M 65.50 [in_i] Gabriella Rios " height in centimeters E&M 166.37 cm Gabriella Rios " weight E&M 225.38 lbs. Gabriellauri [...] /min LinkLogic respiratory rate E&M 18 /min LinkLog " blood pressure, diastolic 76 mm[Hg] LinkLog " temperature E&M 97.5 [degF] LinkLog " pulse rate E&M 60 /min [facility]Log " weight E&M 197.50 lbs. [employer]Log " height E&M 60.50 [in_i] LinkLog " blood pressure, systolic 142 mm[Hg] [facility] ALLERGIES Allergy Name Onset Date Reaction Criticality [...] as % of total hemoglobin 10.8 % LinkLog 4.8-5.6 High " alanine aminotransferase (SGPT), serum 22 1/L LinkLog 0-32 " aspartate aminotransferase (SGOT), serum 21 1/L Link[facility] 0-40 " alkaline phosphatase, serum 153 1/L [facility] 39-117 High " bilirubin, serum, total 0.2 mg/dL LinkLog 0.0-1.2 " albumin/globulin ratio, serum 1.2 LinkLogic [...] Gabriella Rios blood glucose, random 124 mg/dL [facility] blood glucose, random 137 mg/dL [facility] thyroid stimulating hormone, serum [...] Date Observation Value Provider Exercise Program Referral Yunior Rios " Weight Management Counseling Provided T Gabriella Rios " Nutrition intervention T Gabriella Rios " drug use, illicit Never Gabriella Rios " alcohol use Previously Gabriella Rios " social history E&M . Not homeless. Born in [facility]. [facility]. State: [place]. Employed full-time. [employer]. Highest education level: none-8th grade. Gender identity: Female. Gender of partner(s): male. Gabriella Rios " social history reviewed E&M reviewed today Gabriella Rios " passive cigarette smoke exposure No Gabriella Rios " smoking status former smoker Gabriella Rios drug use, illicit Never Ashley Markham " alcohol use Previously Ashley Markham " social history E&M . Not homeless. Born in [facility]. City: [facility]. State: [place]. Employed full-time. [employer]. Highest education level: none-8th [...] history E&M . Not homeless. Born in [facility]. City: [facility]. State: [place]. Employed full-time. [employer]. Highest education level: none-8th [...] history E&M . Not homeless. Born in [facility]. City: [facility]. State: [place]. Employed full-time. [employer]. Highest education level: none-8th [...] history E&M . Not homeless. Born in [facility]. City: [facility]. State: [place]. Employed full-time. [employer]. Highest education level: none-8th grade. Gender identity: Female. Gender of partner(s): male. Jennifer Peacock " social history reviewed E&M reviewed today Jennifer Peacock " Exercise Program Referral T Gabriella Rios " Weight Management Counseling Provided T Gabriella Rios " Nutrition intervention T Gabriella Rios " drug use, illicit Never Gabriella Rios " alcohol use Previously Gabriella Gabriel " social history E&M . Not homeless. Born in [facility]. City: [facility]. State: [place]. Employed full-time. [employer]. Highest education level: none-8th grade. Gender identity: Female. Gender of partner(s): male. Gabriella Gabriel " social history reviewed E&M reviewed today Gabriella Rios " passive cigarette smoke exposure No Gabriellauri Rios " smoking status former smoker Gabriella Gabriel drug use, illicit Never Teresa Gay " alcohol use Currently Teresa Gay " social history E&M . Not homeless. Born in [facility]. City: [facility]. State: [place]. Employed full-time. [employer]. Highest education level: none-8th grade. Gender identity: Female. Gender of partner(s): male. Teresa Gay " social history reviewed E&M reviewed today Teresa Gay " passive cigarette smoke exposure No Teresa Gay " smoking status former smoker Teresa Gay Exercise Program Referral T Patrizia Martel " Weight Management Counseling Provided Yunior Martel " Nutrition intervention Yunior Martel " drug use, illicit Never Teresa Gay " alcohol use Currently Teresa Gay " social history E&M . Not homeless. Born in [facility]. City[facility]. State: [place]. Employed full-time. [employer]. Highest education level: none-8th grade. Gender identity: Female. Gender of partner(s): male. Teresa Gay " social history reviewed E&M reviewed today Teresa Gay " passive cigarette smoke exposure No Teresa Gay " smoking status former smoker Teresa Gay sex at female Jeannine Shirley " social history E&M . Not homeless. Born in [facility]. City: [facility]. State: [place]. Employed full-time. [employer]. Highest education level: none-8th grade. Gender identity: Female. Gender of partner(s): male. Jeannine Shirley " social history reviewed E&M reviewed today Jeannine Shirley " drug use, illicit Never Jeannine Shirley " alcohol use Currently Jeannine Shirley " passive cigarette smoke exposure No Jeannine Shirley " smoking status former smoker Jeannine Shirley social history E&M . Not homeless. Born in [facility]. City[facility]. State: [place]. Employed full-time. [employer]. Highest education level: none-8th [...] ID [facility] [employer] Other [id number] Sliding Fee - Cat 3 Commercial insurance company [employer] Other [id number] Sliding Fee Scale Commercial insurance company [id number] ADVANCE DIRECTIVES No Information Available TREATMENT PLAN [...] l - Est Patient Exp Problem - 57125 Est Patient Exp Problem - 17252 Est Patient Exp Problem - 34643 General Patient Education Est Patient Exp Problem - 00424 Nurse/Nurse Coordinator Est Patient Well Exam (40 - 64 Yrs) - 75993 HEMOGLOBIN A1C - In House Glucose Stick Est Patient Exp Problem - 41923 Prescription Assistance (Non-HIV) Est Patient Exp Problem - 13663 Est Patient Exp Problem - 83147 Prescription Assistance Est Patient Exp Problem - 52605 Dental - Internal Vision New Patient Detailed - 45255 HISTORY OF PROCEDURES Procedure Date Procedure Name Provider Procedure Notes Status HEMOGLOBIN A1C - In House Patrizia Martel completed Glucose Stick Patrizia Martel completed GOALS No Information Available HEALTH CONCERNS No Information Available
--- OUTSIDE RECORDS SUMMARY | 2019-09-04 10:11 | XMS REPORT ---
Author Author Admin, [place] Organization Unknown Address Unknown Phone Unavailable PROBLEMS [...] Provider Location Encounter Diagnosis - Ambulatory Encounter Jenifer Bennett [facility] UNK - Ambulatory Encounter Gabriella Rios [facility] UNK - Ambulatory Encounter Patrizia Martel [facility] UNK - Ambulatory Encounter Patrizia Martel [facility] UNK - Ambulatory Encounter Patrizia Martel [facility] UNK - Ambulatory Encounter Patrizia Rios [facility] Practice UNK - Ambulatory Encounter Naida Cordova [facility] UNK - Ambulatory Encounter Naida Cordova [facility] UNK - Ambulatory Encounter Patrizia Martel [facility] UNK - Ambulatory Encounter Patrizia Rios [facility] UNK - Ambulatory Encounter Gisselle An [facility] UNK - Ambulatory Encounter Gisselle An [facility] UNK - Ambulatory Encounter Patrizia Martel [facility] UNK - Ambulatory Encounter Patrizia Martel [facility] UNK - Ambulatory Encounter Patrizia Martel [facility] UNK - Ambulatory Encounter Patrizia Martel [facility] UNK - Ambulatory Encounter LSJ Lab Support Desktop LinkLogic Patrizia Martel [facility] UNK - Ambulatory Encounter Patrizia Martel [facility] UNK - [facility] - [facility] Gisselle An [facility] UNK - Ambulatory Encounter [facility] Provider Freda Wren [facility] UNK - Ambulatory Encounter Patrizia Martel [facility] UNK - Ambulatory Encounter Patrizia MendezLognitin [facility] UNK - Ambulatory Encounter LSJ Lab Support Desktop LinkLogic Patrizia Martel [facility] UNK - Ambulatory Encounter Patrizia Martel [facility] UNK - Ambulatory Encounter Patrizia Martel [facility] Practice UNK - Ambulatory Encounter Patrizia Gay Ashley Rivasez [facility] UNK - Ambulatory Encounter Gisselle [facility] UNK - Ambulatory Encounter [facility] Provider Freda Baumanacy [facility] UNK - Ambulatory Encounter Patrizia Martel [facility] Practice UNK - Ambulatory Encounter [facility] - Ambulatory Encounter Gisselle An [facility] UNK - Ambulatory Encounter Public Health Services Provider Freda Krause [facility] UNK - Ambulatory Encounter LSJ Care Coordination Desktop [facility] UNK - Ambulatory Encounter Patrizia Paredes [facility] UNK - Ambulatory Encounter Patrizia Martel [facility] UNK - Ambulatory Encounter Fax Status LinkLogic [facility] UNK - Ambulatory Encounter Fax Status LinkLogic [facility] UNK - Ambulatory Encounter Fax Status LinkLogic [facility] UNK - Ambulatory Encounter Fax Status LinkLogic [facility] UNK - Ambulatory Encounter Fax Status LinkLogic [facility] UNK - Ambulatory Encounter Patrizia Martel [facility] UNK - Ambulatory Encounter Patrizia Waterman [facility] UNK - Ambulatory Encounter Josie Obregon [facility] UNK - Ambulatory Encounter Josie Sabas [facility] UNK - Ambulatory Encounter Viki Martel [facility] UNK - Ambulatory Encounter Gisselle Juve Olivo [facility] UNK - Ambulatory Encounter Ashley Hoyosendez [facility] UNK - Ambulatory Encounter Patrizia Obregon [facility] Hemoccult positive stool - Ambulatory Encounter Patrizia Martel [facility] UNK - Ambulatory Encounter LSJ Lab Support Desktop LinkLogic Patrizia Martel [facility] UNK - Ambulatory Encounter Mera [facility] UNK - Ambulatory Encounter Mera [facility] UNK - Ambulatory Encounter Jesica Dee [facility] UNK - Ambulatory Encounter Patrizia Paredes MedAdherence [facility] UNK - Ambulatory Encounter Patrizia Martel [facility] UNK - Ambulatory Encounter Patrizia Martel [facility] UNK - Ambulatory Encounter Patrizia Martel [facility] UNK - Ambulatory Encounter LSJ Lab Support Desktop LinkLogic Patrizia Barrettina Tahmina [facility] UNK - Ambulatory Encounter LSJ Lab Support Desktop Dedra Martel [facility] UNK - Ambulatory Encounter [facility]aredes [facility]ulatory Encounter LSJ Lab Support Desktop LinkDiaz Martel [facility] UNK - Ambulatory Encounter Patrizia Martel [facility] UNK - Ambulatory Encounter Patrizia Yanes [facility] Annual examMammogram yearly screeningCandidal vaginitisDysuriaColon Cancer Screening - Ambulatory Encounter Gisselle An [facility] UNK - Ambulatory Encounter Patrizia Maretl [facility] UNK - Ambulatory Encounter Patrizia Martel [facility] UNK - Ambulatory Encounter Noemy [facility] Services UNK - Ambulatory Encounter Noemy [facility] Services UNK - Ambulatory Encounter Noemy [facility] Services UNK - Ambulatory Encounter Patrizia Martel [facility] UNK - Ambulatory Encounter Patrizia Martel [facility] UNK - Ambulatory Encounter Patrizia Manning [facility] UNK - Ambulatory Encounter Pinky Lechuga [facility] UNK - Ambulatory Encounter Pinky Lechuga [facility] UNK - Ambulatory Encounter Patrizia Martel [facility] UNK - [facility] - Ambulatory Encounter Tomekaviv Martel [place] [facility] UNK - Ambulatory Encounter Tomekaviv Martel [place] [facility] UNK - Ambulatory Encounter Patrizia Martel [facility] UNK - Ambulatory Encounter Patrizia Martel [facility] UNK - Ambulatory Encounter Mary Jarrett [facility] UNK - Ambulatory Encounter Patrizia Gay [facility] Practice Obesity - Ambulatory Encounter Jen Jarrett [place] [facility] UNK - Ambulatory Encounter Patrizia Martel [facility] UNK - Ambulatory Encounter Jen Jarrett [place] [facility] UNK - Ambulatory Encounter Jen Jarrett [place] [facility] UNK - Ambulatory Encounter Patrizia Martel [facility] Practice UNK - Ambulatory Encounter Patrizia Shirley [facility] UNK - Ambulatory Encounter Fax Status [facility] - Ambulatory Encounter Fax Status [facility] UNK - Ambulatory Encounter Fax Status LinkLogic [facility] UNK - Ambulatory Encounter Patrizia Martel [facility] Hyperlipidemia - Ambulatory Encounter Patrizia Martel [facility] Diabetes mellitus, type II - Ambulatory Encounter Patrizia Martel [facility] UNK - Ambulatory Encounter LSJ Lab Support Desktop LinkLognitin Martel [facility] UNK - Ambulatory Encounter Patrizia Martel [facility] UNK - Ambulatory Encounter Patrizia Bowser [facility] HypertensionAllergic rhinitisBack painShortness of breath - Ambulatory Encounter Toshia Saez [facility] UNK - Ambulatory Encounter Pinky Lechuga [facility] UNK - Ambulatory Encounter Pinky Lechuga [facility] UNK - Ambulatory Encounter Jaylin Bills [facility] Medicine UNK - Ambulatory Encounter Jaylin Bills [facility] Medicine UNK - Ambulatory Encounter Maria Simmons [facility] UNK - Ambulatory Encounter Synagogue Preload [facility] - Ambulatory Encounter Synagogue Preload [facility] UNK - Ambulatory Encounter Synagogue Preload [facility] UNK - Ambulatory Encounter Synagogue Preload [facility] UNK - Ambulatory Encounter Synagogue Preload [facility] UNK - Ambulatory Encounter Synagogue Preload [facility] [place] [facility] UNK - Ambulatory Encounter Synagogue Preload [facility]Log[facility] [place] [facility] UNK - Ambulatory Encounter Synagogue Preload [facility] [place] [facility] UNK - Ambulatory Encounter Synagogue Preload [facility] [place] [facility] UNK - Ambulatory Encounter Synagogue Preload [facility]Log[facility] [place] [facility] UNK - Ambulatory Encounter Synagogue Preload [facility] [place] [facility] UNK - Ambulatory Encounter Synagogue Preload LinkLogic [place] [facility] UNK - Ambulatory Encounter Synagogue Preload LinkLog[facility] [place] [facility] UNK - Ambulatory Encounter Synagogue Preload [facility]Logic [place] [facility] UNK - Ambulatory Encounter Synagogue Preload [facility]Log[facility] [place] [facility] UNK - Ambulatory Encounter Synagogue Preload [facility] [place] [facility] UNK - Ambulatory Encounter Synagogue Preload LinkLogic [facility] UNK - Ambulatory Encounter Synagogue Preload LinkLogic [facility] UNK - Ambulatory Encounter Synagogue Preload [facility]Log[facility] [place] [facility] UNK - Ambulatory Encounter Synagogue Preload [facility] [place] [facility] UNK - Ambulatory Encounter Synagogue Preload [facility]Log[facility] [place] [facility] UNK - Ambulatory Encounter Synagogue Preload LinkLogic [facility] UNK - Ambulatory Encounter Synagogue Preload LinkLogic [facility] UNK - Ambulatory Encounter Synagogue Preload LinkLogic [facility] UNK - Ambulatory Encounter Synagogue Preload LinkLogic [place] [facility] UNK - Ambulatory Encounter Synagogue Preload [facility]Logic [place] [facility] UNK - Ambulatory Encounter Synagogue Preload LinkLogic [facility] UNK - Ambulatory Encounter Synagogue Preload LinkLogic [place] [facility] UNK - Ambulatory Encounter Synagogue Preload LinkLogic [facility] UNK - Ambulatory Encounter Synagogue Preload LinkLogic [facility] UNK - Ambulatory Encounter Synagogue Preload LinkLogic [facility] UNK - Ambulatory Encounter Synagogue Preload LinkLogic [facility] UNK - Ambulatory Encounter Synagogue Preload LinkLogic [facility] UNK - Ambulatory Encounter Synagogue Preload LinkLogic [facility] UNK - Ambulatory Encounter Synagogue Preload LinkLogic [facility] UNK - Ambulatory Encounter Synagogue Preload LinkLogic [facility] UNK - Ambulatory Encounter Synagogue Preload LinkLogic [facility] UNK - Ambulatory Encounter Synagogue Preload LinkLogic [facility] UNK - Ambulatory Encounter Synagogue Preload LinkLogic [facility] UNK - Ambulatory Encounter Synagogue Preload LinkLogic [facility] UNK - Ambulatory Encounter Synagogue Preload LinkLogic [facility] UNK - Ambulatory Encounter Synagogue Preload LinkLogic [facility] UNK - Ambulatory Encounter Synagogue Preload [facility] [place] [facility] UNK - Ambulatory Encounter Synagogue Preload [facility]Logic [place] [facility] UNK - Ambulatory Encounter Synagogue Preload [facility]Logic [place] [facility] UNK - Ambulatory Encounter Synagogue Preload LinkLogic [place] [facility] UNK - Ambulatory Encounter Synagogue Preload [facility] [place] [facility] UNK - Ambulatory Encounter Synagogue Preload [facility]Logic [place] [facility] UNK - Ambulatory Encounter Synagogue Preload LinkLogic [place] [facility] UNK - Ambulatory Encounter Synagogue Preload [facility]Logic [place] [facility] UNK - Ambulatory Encounter Synagogue Preload [facility] [place] [facility] UNK - Ambulatory Encounter Synagogue Preload [facility]Logic [place] [facility] UNK - Ambulatory Encounter Synagogue Preload LinkLogic [place] [facility] UNK - Ambulatory Encounter Synagogue Preload LinkLogic [facility] UNK - Ambulatory Encounter Synagogue Preload LinkLogic [facility] UNK - Ambulatory Encounter Synagogue Preload LinkLogic [facility] UNK - Ambulatory Encounter Synagogue Preload [facility] [place] [facility] UNK - Ambulatory Encounter Synagogue Preload [facility]Log[facility] [place] [facility] UNK - Ambulatory Encounter Synagogue Preload LinkLogic [facility] UNK - Ambulatory Encounter Synagogue Preload LinkLogic [facility] UNK - Ambulatory Encounter Synagogue Preload LinkLogic [facility] UNK - Ambulatory Encounter Synagogue Preload LinkLogic [place] [facility] UNK - Ambulatory Encounter Synagogue Preload [facility]Logic [place] [facility] UNK - Ambulatory Encounter Synagogue Preload LinkLogic [place] [facility] UNK - Ambulatory Encounter Synagogue Preload LinkLogic [place] [facility] UNK - Ambulatory Encounter Synagogue Preload LinkLogic [place] [facility] UNK - Ambulatory Encounter Synagogue Preload LinkLogic [facility] UNK - Ambulatory Encounter Synagogue Preload LinkLogic [facility] UNK - Ambulatory Encounter Synagogue Preload LinkLogic [facility] UNK - Ambulatory Encounter Synagogue Preload LinkLogic [place] [facility] UNK - Ambulatory Encounter Synagogue Preload LinkLogic [facility] UNK - Ambulatory Encounter Synagogue Preload LinkLogic [facility] UNK - Ambulatory Encounter Synagogue Preload LinkLogic [facility] UNK - Ambulatory Encounter Synagogue Preload LinkLogic [facility] UNK - Ambulatory Encounter Synagogue Preload LinkLogic [facility] UNK - Ambulatory Encounter Synagogue Preload LinkLogic [facility] UNK - Ambulatory Encounter Synagogue Preload LinkLogic [facility] UNK - Ambulatory Encounter Synagogue Preload LinkLogic [facility] UNK - Ambulatory Encounter Synagogue Preload LinkLogic [facility] UNK - Ambulatory Encounter Synagogue Preload [facility] UNK - Ambulatory Encounter Synagogue Preload [facility] UNK VITAL SIGNS Date Observation Value [...] Gabriella Rios " temperature site oral Gabriella Farleyrez " [...] Jennifer Peacock " height E&M 60.20 [in_i] Jennifermelinda Peacock " height in centimeters E&M 152.91 cm Jennifer Peacock " temperature site oral Jennifer Peacock " Blood Pressure Position 01 sitting Jennifer Peacock " method used to obtain blood pressure automatic Jennifer Peacock " blood pressure, site #1 left arm Jennifermelinda Peacock oxygen saturation, oximetry 94 % Gabriella [...] Gabriella Rios " weight E&M 225.38 lbs. Gabriella Rios " weight in kilograms E&M 102.45 kg Gabriella Rios pulse rate E&M 60 /min LinkLog " [...] Gabriella Rios blood glucose, random 124 mg/dL [facility] blood glucose, random 137 mg/dL [facility] thyroid stimulating hormone, serum 1.590 u[iU]/mL [...] mean corpuscular hemoglobin concentration, RBC 33.6 G/DL LinkLog 31.5-35.7 " mean corpuscular hemoglobin, RBC 31.8 pg LinkLogic 26.6-33.0 " mean corpuscular volume, RBC 95 fL [facility]Logic 79-97 " hematocrit, blood 42.0 % [employer]Logic 34.0-46.6 " hemoglobin, blood 14.1 g/dL [employer]Logic 11.1-15.9 " erythrocyte (RBC) count 4.44 X10E6/UL LinkLog 3.77-5.28 " leukocyte count, blood 7.1 X10E3/UL LinkLog 3.4-10.8 HISTORY OF IMMUNIZATIONS No Information Available [...] history E&M . Not homeless. Born in [facility]. City: [facility]. State: [place]. Employed full-time. [employer]. Highest education level: none-8th grade. Gender identity: Female. Gender of partner(s): male. Gabriella Rios " social history reviewed E&M reviewed today Gabriella Rios " passive cigarette smoke exposure No Gabriella Rios " smoking status former smoker Gabriella Rios drug use, illicit Never Ashley Markham " alcohol use Previously Ashley Markham " social history E&M . Not homeless. Born in [facility]. City: [facility]. State: [place]. Employed full-time. [employer]. Highest education level: none-8th [...] history E&M . Not homeless. Born in [facility]. City: [facility]. State: [place]. Employed full-time. [employer]. Highest education level: none-8th [...] history E&M . Not homeless. Born in [facility]. City: [facility]. State: [place]. Employed full-time. [employer]. Highest education level: none-8th grade. Gender identity: Female. Gender of partner(s): male. Gabriella Rios " social history reviewed E&M reviewed today Gabriella Rios " passive cigarette smoke exposure No Gabriella Rios " smoking status former smoker Gabriella Rios Exercise Program Referral T Patrizia Martel " Weight Management Counseling Provided T Patrizia Tahmina " Nutrition intervention Yunior Martel " Patient was counseled for sexual safety Counseled for sexual health safety. Patrizia Martel " is there any chance that you could be ? No Jnenifer Peacock " passive cigarette smoke exposure No Jennifer Peacock " alcohol use Previously Jennifer Peacock " smoking status former smoker Jennifer Ayush " social history E&M . Not homeless. Born in [facility]. City: [facility]. State: [place]. Employed full-time. [employer]. Highest education level: none-8th [...] history E&M . Not homeless. Born in [facility]. City: [facility]. State: [place]. Employed full-time. [employer]. Highest education level: none-8th grade. Gender identity: Female. Gender of partner(s): male. Gabriella Rios " social history reviewed E&M reviewed today Gabriella Rios " passive cigarette smoke exposure No Gabriella Rios " smoking status former smoker Gabriella Rios drug use, illicit Never Teresa Gay " alcohol use Currently Teresa Gay " social history E&M . Not homeless. Born in [facility]. City: [facility]. State: [place]. Employed full-time. [employer]. Highest education level: none-8th [...] history E&M . Not homeless. Born in [facility]. City: [facility]. State: [place]. Employed full-time. [employer]. Highest education level: none-8th grade. Gender identity: Female. Gender of partner(s): male. Teresa Gay " social history reviewed E&M reviewed today Teresa Gay " passive cigarette smoke exposure No Teresa Gay " smoking status former smoker Teresa Gay sex at female Jeannine Shirley " social history E&M . Not homeless. Born in [facility]. City: [facility]. State: [place]. Employed full-time. [employer]. Highest education level: none-8th grade. Gender identity: Female. Gender of partner(s): male. Jeannine Casper " social history reviewed E&M reviewed today Jeannine Casper " drug use, illicit Never Jeannine Shirley " alcohol use Currently Jeannine Shirley " passive cigarette smoke exposure No Jeannine Casper " smoking status former smoker Jeannine Casper social history E&M . Not homeless. Born in [facility]. City: [facility]. State: [place]. Employed full-time. [employer]. Highest education level: none-8th grade. Gender identity: Female. Gender of partner(s): male. 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 No Gabriella Riso " drug use, illicit Never Gabriella Rios " alcohol use, frequency holidays/special occasions only Gabriella Rios " alcohol use Currently Gabriella Rios " social history reviewed E&M reviewed today Gabriella Rios " passive cigarette smoke exposure No Gabriella Rios " smoking status former smoker Gabriella Gabriel smoking status Current some day smoker LinkLogic smoking status Current some day smoker LinkLogic smoking status Current some day smoker [employer]Logic FUNCTIONAL STATUS No Information Available MENTAL STATUS Date Observation Value Provider assessment of mood and affect E&M guillermo Martel " mental status examination: orientation E&M [...] E&M oriented to time, place, and person Patriziamelinda Martel " assessment of judgment and insight E&M limited Patriziamelinda Martel " Generalized Anxiety Disorder Questionnaire - Question 2 0 Ashley Markham " Generalized Anxiety Disorder Questionnaire - Question 1 0 Ashley Markham assessment of judgment and insight E&M limited Patrizia Tahmina " mental status examination: orientation E&M oriented to time, place, and person Patriziamelinda Martel " assessment of mood and affect [...] E&M oriented to time, place, and person Patriziamelinda Martel " assessment of mood and affect [...] Disorder Questionnaire - Question 4 1 Gabriella Gabriel " Generalized Anxiety Disorder Questionnaire - Question 3 0 Gabriella Gabriel " Generalized Anxiety Disorder Questionnaire - Question 2 0 Gabriella Gabriel " Generalized Anxiety Disorder Questionnaire - Question 1 1 Gabriella Rios assessment of judgment and insight E&M intact Patrizia Tahmina " assessment of mood and affect E&M no depression, anxiety, or agitation Patrizia Martel " Generalized Anxiety Disorder Questionnaire - Question 2 0 Teresaus Gay " Generalized Anxiety Disorder Questionnaire - Question 1 0 Teresa Victor Hugo assessment of judgment and insight E&M intact Patriziamelinda Martel " assessment of mood and affect E&M no depression, anxiety, or agitation Patrizia Martel " Generalized Anxiety Disorder Questionnaire - Question 2 0 Teresa Victor Hugo " Generalized Anxiety Disorder Questionnaire - Question 1 0 Teresa Victor Hugo assessment of judgment and insight E&M intact Patriziamelinda Martel " assessment of mood and affect [...] Anxiety Disorder Questionnaire - Question 2 0 Gabriellauri Rios " Generalized Anxiety Disorder Questionnaire - Question 1 0 Gabriella [facility] No Information Available FAMILY HISTORY No Information Available INSURANCE PROVIDERS Payer name Policy type / Coverage type Covered democrat ID Expanded Primary Health Care Mookie Other [id number] [facility] Riidr insurance Done In :60 Seconds [id number] Sliding Fee - Cat 3 Commercial insurance company Expanded Primary Health Care Mookie Other [id number] Sliding Fee Scale Commercial insurance company [id number] ADVANCE DIRECTIVES No Information Available TREATMENT PLAN [...] l - Est Patient Exp Problem - 55352 Est Patient Exp Problem - 52478 Est Patient Exp Problem - 81155 General Patient Education Est Patient Exp Problem - 61028 Nurse/Nurse Coordinator Est Patient Well Exam (40 - 64 Yrs) - 24436 HEMOGLOBIN A1C - In House Glucose Stick Est Patient Exp Problem - 71556 Prescription Assistance (Non-HIV) Est Patient Exp Problem - 02451 Est Patient Exp Problem - 15483 Prescription Assistance Est Patient Exp Problem - 11167 Dental - Internal Vision New Patient Detailed - 70543 HISTORY OF PROCEDURES Procedure Date Procedure Name Provider Procedure Notes Status HEMOGLOBIN A1C - In House Patrizia Martel completed Glucose Stick Patrizia Martel completed GOALS No Information Available HEALTH CONCERNS No Information Available
--- OUTSIDE RECORDS SUMMARY | 2019-09-04 10:12 | XMS REPORT ---
Author Author Admin, Amity Organization Unknown Address Unknown Phone Unavailable PROBLEMS [...] Encounter Diagnosis - Ambulatory Encounter Patrizia Martel [facility] Practice UNK - Ambulatory Encounter Patrizia Carrera [facility] UNK - Ambulatory Encounter Lewis An [facility] UNK - Ambulatory Encounter Fax Status [facility] Services UNK - Ambulatory Encounter Patrizia Martel [facility] UNK - Ambulatory Encounter Patrizia Martel [facility] UNK - Ambulatory Encounter Jenifer Hull [facility] UNK - Ambulatory Encounter Gabriella Rios [facility] UNK - Ambulatory Encounter [facility] UNK - Ambulatory Encounter [facility] UNK - Ambulatory Encounter [facility] UNK - Ambulatory Encounter Patrizia Rios [facility] UNK - Ambulatory Encounter Naida [facility] UNK - Ambulatory Encounter Naida [facility] UNK - Ambulatory Encounter Patrizia Martel [facility] UNK - Ambulatory Encounter Patrizia Rios [facility] UNK - Ambulatory En[facility] UN[facility] - [facility]ulatory En[facility] UNK - Ambulatory Encounter [facility] UNK - Ambulatory Encounter [facility] UNK - Ambulatory Encounter [facility]ia [facility] UNK - Ambulatory Encounter Patrizia Martel [facility] UNK - Ambulatory Encounter LSJ Lab Support [facility] UNK - Ambulatory Encounter Patrizia Martel [facility] UNK - Ambulatory Encounter Patrizia Hoyosendez [facility] UNK - Ambulatory Encounter Gisselle An [facility] UNK - Ambulatory Encounter Public Health Services Provider Freda Wren [facility] UNK - Ambulatory Encounter Patrizia Martel [facility] UNK - Ambulatory Encounter Patrizia MendezLognitin [facility] UNK - Ambulatory Encounter LSJ Lab Support Desktop Dedra Martel [facility] UNK - Ambulatory Encounter Patrizia Martel [facility] UNK - Ambulatory Encounter Patrizia Martel [facility] UNK - Ambulatory Encounter Patrizia Ramirez [facility] UNK - Ambulatory Encounter Gisselle An [facility] UNK - Ambulatory Encounter Public Health Services Provider Freda Wren [facility] UNK - Ambulatory Encounter Patrizia Martel [facility] UNK - Ambulatory Encounter Patrizia MendezLognitin [facility] UNK - Ambulatory Encounter Gisselle Short [facility] UNK - Ambulatory Encounter Public Health Services Provider Freda Wren [facility] UNK - Ambulatory Encounter LSJ Care Coordination Desktop Jennifer Waterman [facility] UNK - Ambulatory Encounter Patrizia [facility] UNK - Ambulatory Encounter Patrizia Martel LinkLogn[facility] Practice UNK - Ambulatory Encounter Fax Status [facility] - Ambulatory Encounter Fax Status [facility] UNK - Ambulatory Encounter Fax Status [facility] UNK - Ambulatory Encounter Fax Status [facility] UNK - Ambulatory Encounter Fax Status [facility] UNK - Ambulatory Encounter Patrizia Martel [facility] Practice UNK - Ambulatory Encounter Patrizia Waterman [facility] UNK - Ambulatory Encounter Josie Sabas [facility] UNK - Ambulatory Encounter Josie Sabas [facility] UNK - Ambulatory Encounter Viki Mart[facility] UNK - Ambulatory Encounter Gisselle Olivo [facility] UNK - Ambulatory Encounter Ashley Rashi [facility] UNK - Ambulatory Encounter Patrizia Obregon [facility] Hemoccult positive stool - Ambulatory Encounter Patrizia Martel [facility] UNK - Ambulatory Encounter LSJ Lab Support Desktop Dedra Martel [facility] UNK - Ambulatory Encounter Mera Nate [facility] UNK - Ambulatory Encounter Mera Sullivan [facility] UNK - Ambulatory Encounter Jesica Leila [facility] Adult Medicine UNK - Ambulatory Encounter [facility] UNK - Ambulatory Encounter Patrizia Martel [facility] UNK - Ambulatory Encounter Patrizia Martel [facility] UNK - Ambulatory Encounter Patrizia Martel [facility] UNK - Ambulatory Encounter LSJ Lab Support Desktop LinkLogic Patrizia Martel [facility] UNK - Ambulatory Encounter LSJ Lab Support Desktop LinkLogic Patrizia Martel [facility] UNK - Ambulatory Encounter [facility]ared[facility] UNK - Ambulatory Encounter LSJ Lab Support Desktop LinkLogic Patrizia Martel [facility] UNK - Ambulatory Encounter Patrizia Martel [facility] UNK - Ambulatory Encounter Patrizia Yanes [facility] Annual examMammogram yearly screeningCandidal vaginitisDysuriaColon Cancer Screening - Ambulatory Encounter Gisselle An [facility] UNK - Ambulatory Encounter Patrizia Martel LinkLognitin [facility] UNK - Ambulatory Encounter [facility] UN[facility] - Ambulatory Encounter Noemy [facility] UNK - Ambulatory Encounter Noemy [facility] UNK - Ambulatory Encounter Noemy [facility] UNK - Ambulatory Encounter [facility] UNK - Ambulatory Encounter Patrizia Martel [facility] UNK - Ambulatory Encounter Patrizia Navarro [facility] UNK - Ambulatory Encounter Pinky Lechuga [facility] UNK - Ambulatory Encounter Pinky Lechuga [facility] UNK - Ambulatory Encounter Patrizia Martel [facility] [place] [facility] UNK - [facility], left - Ambulatory Encounter Tomeka Martel [facility] UNK - Ambulatory Encounter Tomeka Martel [facility] Practice UNK - Ambulatory Encounter [facility]ia [facility] UNK - Ambulatory Encounter Patrizia Martel [facility] UNK - Ambulatory Encounter Evernoemi Jarrett [facility] UNK - Ambulatory Encounter Patrizia Gay [facility] Obesity - Ambulatory Encounter Jen Jarrett [facility] UNK - Ambulatory Encounter [facility]ia [facility] UNK - Ambulatory Encounter Jen Farias [facility] UNK - Ambulatory Encounter Jen Farias [facility] UNK - Ambulatory Encounter Patrizia Martel [facility] UNK - Ambulatory Encounter Patrizia Ramon Jen Shirley [facility] UNK - Ambulatory Encounter Fax Status [facility] Services UNK - Ambulatory Encounter Fax Status [facility] Services UNK - Ambulatory Encounter Fax Status [facility] UNK - Ambulatory Encounter Patrizia Martel [facility] Hyperlipidemia - Ambulatory Encounter Patrizia Martel [facility] Diabetes mellitus, type II - Ambulatory Encounter Patrizia Martel [facility] UNK - Ambulatory Encounter LSJ Lab Support Desktop [facility] UNK - Ambulatory Encounter Patrizia Martel [facility] UNK - Ambulatory En[facility] HypertensionAllergic rhinitisBack painShortness of breath - Ambulatory Encounter Toshia Saez [facility] UNK - Ambulatory Encounter Pinky Lechuga [facility] UNK - Ambulatory Encounter Pinky Lechuga [facility] UNK - Ambulatory Encounter Jaylin Bills [facility] Adult Medicine UNK - Ambulatory Encounter Jaylin Bills [facility] Adult Medicine UNK - Ambulatory Encounter Maria Simmons [facility] UNK - Ambulatory Encounter Zoroastrianism Preload LinkLogic [facility] UNK - Ambulatory Encounter Zoroastrianism Preload LinkLogic [facility] UNK - Ambulatory Encounter Zoroastrianism Preload LinkLogic [facility] UNK - Ambulatory Encounter Zoroastrianism Preload LinkLogic [facility] UNK - Ambulatory Encounter Zoroastrianism Preload LinkLogic [facility] UNK - Ambulatory Encounter Zoroastrianism Preload LinkLogic [facility] UNK - Ambulatory Encounter Zoroastrianism Preload LinkLogic [facility] UNK - Ambulatory Encounter Zoroastrianism Preload [employer]Logic [facility] UNK - Ambulatory Encounter Zoroastrianism Preload LinkLogic [facility] UNK - Ambulatory Encounter Zoroastrianism Preload [employer]Logic [facility] UNK - Ambulatory Encounter Zoroastrianism Preload LinkLogic [facility] UNK - Ambulatory Encounter Zoroastrianism Preload [employer]Logic [facility] UNK - Ambulatory Encounter Zoroastrianism Preload [facility]Logic [facility] UNK - Ambulatory Encounter Zoroastrianism Preload LinkLogic [facility] UNK - Ambulatory Encounter Zoroastrianism Preload LinkLogic [facility] UNK - Ambulatory Encounter Zoroastrianism Preload [facility]Logic [facility] UNK - Ambulatory Encounter Zoroastrianism Preload LinkLogic [facility] UNK - Ambulatory Encounter Zoroastrianism Preload [facility] UNK - Ambulatory Encounter Zoroastrianism Preload [facility]ic [facility] UNK - Ambulatory Encounter Zoroastrianism Preload [facility]ic [facility] UNK - Ambulatory Encounter Zoroastrianism Preload [facility]ic [facility] UNK - Ambulatory Encounter Zoroastrianism Preload [facility]Logic [facility] UNK - Ambulatory Encounter Zoroastrianism Preload [facility]Logic [facility] UNK - Ambulatory Encounter Zoroastrianism Preload LinkLogic [facility] UNK - Ambulatory Encounter Zoroastrianism Preload LinkLogic [facility] UNK - Ambulatory Encounter Zoroastrianism Preload [facility]Logic [facility] Practice UNK - Ambulatory Encounter Zoroastrianism Preload [facility]Logic [facility] UNK - Ambulatory Encounter Zoroastrianism Preload [facility]Logic [facility] Practice UNK - Ambulatory Encounter Zoroastrianism Preload LinkLog[facility] Practice UNK - Ambulatory Encounter Zoroastrianism Preload [facility]Log[facility] UNK - Ambulatory Encounter Zoroastrianism Preload [facility]Logic [facility] UNK - Ambulatory Encounter Zoroastrianism Preload [facility]Logic [facility] UNK - Ambulatory Encounter Zoroastrianism Preload [facility]Logic [facility] UNK - Ambulatory Encounter Zoroastrianism Preload [facility]Log[facility] Practice UNK - Ambulatory Encounter Zoroastrianism Preload LinkLogic [facility] UNK - Ambulatory Encounter Zoroastrianism Preload [facility] Practice UNK - Ambulatory Encounter Zoroastrianism Preload [facility]ic [facility] UNK - Ambulatory Encounter Zoroastrianism Preload [facility]Logic [facility] UNK - Ambulatory Encounter Zoroastrianism Preload [facility]Logic [facility] UNK - Ambulatory Encounter Zoroastrianism Preload [facility]ic [facility] UNK - Ambulatory Encounter Zoroastrianism Preload [facility]ic [facility] UNK - Ambulatory Encounter Zoroastrianism Preload [facility]ic [facility] UNK - Ambulatory Encounter Zoroastrianism Preload [facility]Logic [facility] UNK - Ambulatory Encounter Zoroastrianism Preload [facility]Logic [facility] UNK - Ambulatory Encounter Zoroastrianism Preload [facility]Logic [facility] UNK - Ambulatory Encounter Zoroastrianism Preload [facility]ic [facility] UNK - Ambulatory Encounter Zoroastrianism Preload [facility]Logic [facility] UNK - Ambulatory Encounter Zoroastrianism Preload [facility]Logic [facility] UNK - Ambulatory Encounter Zoroastrianism Preload [facility]Logic [facility] UNK - Ambulatory Encounter Zoroastrianism Preload [facility]Logic [facility] UNK - Ambulatory Encounter Zoroastrianism Preload [facility]Logic [facility] UNK - Ambulatory Encounter Zoroastrianism Preload [facility]Logic [facility] UNK - Ambulatory Encounter Zoroastrianism Preload [facility]Log[facility] Practice UNK - Ambulatory Encounter Zoroastrianism Preload [facility] UNK - Ambulatory Encounter Zoroastrianism Preload [facility]ic [facility] UNK - Ambulatory Encounter Zoroastrianism Preload [facility]ic [facility] UNK - Ambulatory Encounter Zoroastrianism Preload [facility]ic [facility] UNK - Ambulatory Encounter Zoroastrianism Preload [facility]ic [facility] UNK - Ambulatory Encounter Zoroastrianism Preload [facility]ic [facility] UNK - Ambulatory Encounter Zoroastrianism Preload [facility]ic [facility] UNK - Ambulatory Encounter Zoroastrianism Preload [facility]Logic [facility] UNK - Ambulatory Encounter Zoroastrianism Preload LinkLogic [facility] UNK - Ambulatory Encounter Zoroastrianism Preload [facility]Logic [facility] UNK - Ambulatory Encounter Zoroastrianism Preload [facility]ic [facility] UNK - Ambulatory Encounter Zoroastrianism Preload [facility] UNK - Ambulatory Encounter Zoroastrianism Preload [facility]ic [facility] UNK - Ambulatory Encounter Zoroastrianism Preload [facility] Practice UNK - Ambulatory Encounter Zoroastrianism Preload [facility]ic [facility] UNK - Ambulatory Encounter Zoroastrianism Preload [facility] UNK - Ambulatory Encounter Zoroastrianism Preload [facility] UNK - Ambulatory Encounter Zoroastrianism Preload [facility] Practice UNK - Ambulatory Encounter Zoroastrianism Preload [facility] Practice UNK - Ambulatory Encounter Zoroastrianism Preload [facility]Log[facility] Practice UNK - Ambulatory Encounter Zoroastrianism Preload [facility] UNK - Ambulatory Encounter Zoroastrianism Preload [facility] UNK - Ambulatory Encounter Zoroastrianism Preload [facility] UNK - Ambulatory Encounter Zoroastrianism Preload [facility] UNK - Ambulatory Encounter Zoroastrianism Preload [facility] UNK - Ambulatory Encounter Zoroastrianism Preload [facility] UNK - Ambulatory Encounter Zoroastrianism Preload [facility] UNK - Ambulatory Encounter Zoroastrianism Preload [facility] UNK VITAL SIGNS Date Observation Value Provider oxygen saturation, oximetry 92 % Elaine Pool " method used to obtain blood pressure automatic Elaine Pool " Blood Pressure Position 01 sitting Elaine Pool " blood pressure, site #1 right arm Elaine Pool " blood pressure, diastolic 75 mm[Hg] Elaine Pool " blood pressure, systolic 117 mm[Hg] Elaine Pool " respiratory rate E&M 16 /min Elaine Pool " pulse rate E&M 72 /min Elaine Pool " temperature site oral Elaine Pool " temperature E&M 97.9 [degF] Elaine Pool " weight E&M 220 lbs. Elaine Pool " weight in kilograms E&M 100 kg Elaine Pool " height E&M 60.20 [in_i] Elaine Pool " height in centimeters E&M 152.91 cm Elaine Pool BP diastolic #1 91 mm[Hg] Gabriella Rios " BP systolic #1 156 mm[Hg] Gabriella Rios " pulse rate #2 72 Gabriella Rios " blood pressure, diastolic, second observation 91 mm[Hg] Gabriella Rios " blood pressure, systolic, second observation 150 mm[Hg] Gabriella Rios " temperature E&M 98.4 [degF] Gabriella Rios " pulse rate E&M 73 /min Gabriella Farleyrez " respiratory rate E&M 16 /min Gabriella [...] Gabriella Gabriel " height E&M 60.20 [in_i] Gabriellauri Rios " height in centimeters E&M 152.91 [...] " respiratory rate E&M 18 /min Jennifer Ayush " pulse rate E&M 77 /min Jennifer Peacock " temperature E&M 98.9 [degF] Jennifer Peacock " weight E&M 21.40 lbs. Jennifer Peacokc " weight in kilograms E&M 9.73 kg [...] Gay " pulse rate E&M 69 /min Teresaus Martinra " temperature site oral Teresa Gay " temperature E&M 98.1 [degF] Teresa Gay " weight E&M 225 lbs. Teresa Gay " weight in kilograms E&M 102.27 kg Teresa Gay " height E&M 65.50 [in_i] Teresa Martinra " height in centimeters E&M 166.37 cm Teresa Gay respiratory rate #2 17.25 Jeanninemireya Shirley " pulse rate #2 69 Jeannine [...] Jeannine Casper " temperature site oral Jeannine Shirley " temperature E&M 98.1 [degF] Jeannine Casper " weight E&M 224.60 lbs. Jeanninemireya Shilrey " weight in kilograms E&M 102.09 kg [...] Start Date - End Date Service - Mammogram - Screening RESULTS Date Observation [...] Gabriella Rios blood glucose, random 124 mg/dL [facility] blood glucose, random 137 mg/dL [facility] thyroid stimulating hormone, serum 1.590 [...] for 5 days for UTI - Patrizia Mratel [facility] O[facility] KRILL OIL 300 MG ORAL [...] Observation Value Provider drug use, illicit Never Elaine Pool " alcohol use Previously Elaine Pool " social history E&M . Not homeless. Born in [facility]. City: [facility]. State: [place]. Employed full-time. [employer]. Highest education level: none-8th grade. Gender identity: Female. Gender of partner(s): male. Elaine Pool " social history reviewed E&M reviewed today Elaine Pool " passive cigarette smoke exposure No Elaine Pool " if the patient is using/has used a vaping item, Current, Former, Never Used, Not asked No Elaine Pool " smoking status former smoker Elaine Pool " Exercise Program Referral T Elaine Pool " Weight Management Counseling Provided T Elaine Pool " Nutrition intervention T Elaine Pool Exercise Program Referral T Gabriella Rios " Weight Management Counseling Provided T Gabriella Rios " Nutrition intervention T Gabriella Rios " drug use, illicit Never Gabriella Gabriel " alcohol use Previously Gabriella Gabriel " social history E&M . Not homeless. Born in [facility]. City: [facility]. State: [place]. Employed full-time. [employer]. Highest education level: none-8th [...] Born in [facility]. City: [facility]. State: [place]. Employed full-time. [employer]. Highest [...] Born in [facility]. City: [facility]. State: [place]. Employed full-time. [employer]. Highest education level: none-8th [...] Born in [facility]. City: [facility]. State: [place]. Employed full-time. [employer]. Highest education level: none-8th [...] Born in [facility]. City: [facility]. State: [place]. Employed full-time. [employer]. Highest education level: none-8th [...] Born in [facility]. City: [facility]. State: [place]. Employed full-time. [employer]. Highest education level: none-8th [...] Born in [facility]. City: [facility]. State: [place]. Employed full-time. [employer]. Highest education level: none-8th [...] Born in [facility]. City: [facility]. State: [place] Employed full-time. [employer]. Highest education level: none-8th grade. Gender identity: Female. Gender of partner(s): male. Teresa Gay " social history reviewed E&M reviewed today Teresa Gay " passive cigarette smoke exposure No Teresa Gay " smoking status former smoker Teresa Gay sex at female Jeannine Shirley " social history E&M . Not homeless. Born in [facility]. City: [facility]. State: [place]. Employed full-time. [employer]. Highest education level: none-8th grade. Gender identity: Female. Gender of partner(s): male. Jeannine Shirley " social history reviewed E&M reviewed today Jeannine Shirley " drug use, illicit Never Jeannine Casper " alcohol use Currently Jeannine Shirley " passive cigarette smoke exposure No Jeannine Shirley " smoking status former smoker Jeannine Shirley social history E&M . Not homeless. Born in [facility]. City: [facility]. State: [place]. Employed full-time. [employer]. Highest education level: none-8th grade. Gender identity: Female. Gender of partner(s): male. Gabriella Gabriel " Occupation #1 cook Gabriella Gabriel " [...] Anxiety Disorder Questionnaire - Question 2 0 Elaine Carrera " Generalized Anxiety Disorder Questionnaire - Question 1 0 Elaine Carrera assessment of mood and affect E&M pleasant [...] Disorder Questionnaire - Question 7 0 Gabriella Farleyrez " Generalized Anxiety Disorder Questionnaire - Question 6 0 Gabriella Gabriel " Generalized Anxiety Disorder Questionnaire - Question 5 1 Gabriella Rios " Generalized Anxiety Disorder Questionnaire - Question 4 1 Gabriella Farleyrez " Generalized Anxiety Disorder Questionnaire - Question 3 0 Gabriella Edmondsierrez " Generalized Anxiety Disorder Questionnaire - Question 2 0 Gabriella Gabriel " Generalized Anxiety Disorder Questionnaire - Question 1 1 Gabriella Gabriel assessment of judgment and insight E&M intact [...] Disorder Questionnaire - Question 1 0 Gabriella Edmondsierrez MEDICAL EQUIPMENT No Information Available FAMILY HISTORY No Information Available INSURANCE PROVIDERS Payer name Policy type / Coverage type Covered republican ID Exp[employer] [facility] [employer] [facility] [employer] Other [id number] [facility] Medicare [id number] Sliding Fee - Cat 3 Commercial insurance company [employer] Other [id number] Sliding Fee Scale Commercial insurance company [id number] ADVANCE DIRECTIVES No Information Available TREATMENT PLAN Date Name Microalb/Creat Ratio, Randm Ur Lipid Panel Comp. Metabolic Panel (14) CBC With Differential/Platelet Hemoglobin A1c Hemoglobin A1c Comp. Metabolic Panel (14) Urinalysis [...] Metabolic Panel (14) CBC With Differential/Platelet - l - Est Patient Exp Problem - 78547 Est Patient Exp Problem - 70548 Est Patient Exp Problem - 36864 Est Patient Exp Problem - 76397 General Patient Education Est Patient Exp Problem - 06966 Nurse/Nurse Coordinator Est Patient Well Exam (40 - 64 Yrs) - 42348 HEMOGLOBIN A1C - In House Glucose Stick Est Patient Exp Problem - 40278 Prescription Assistance (Non-HIV) Est Patient Exp Problem - 84468 Est Patient Exp Problem - 56482 Prescription Assistance Est Patient Exp Problem - 93499 Dental - Internal Vision New Patient Detailed - 46833 HISTORY OF PROCEDURES Procedure Date Procedure Name Provider Procedure Notes Status HEMOGLOBIN A1C - In House Patrizia Martel completed Glucose Stick Patrizia Martel completed GOALS No Information Available HEALTH CONCERNS No Information Available
--- OUTSIDE RECORDS SUMMARY | 2019-09-04 10:12 | XMS REPORT ---
Author Author Admin, [place] Organization Unknown Address Unknown Phone Unavailable PROBLEMS [...] - Ambulatory Encounter LSJ Lab Support Desktop [facility] UNK - Ambulatory Encounter Patrizia Martel [facility] UNK - Ambulatory Encounter Patrizia Carrera [facility] UNK - Ambulatory Encounter Lewis An [facility] UNK - Ambulatory Encounter Fax Status [facility] UNK - Ambulatory Encounter Patrizia Martel [facility] UNK - Ambulatory Encounter Patrizia Martel [facility] UNK - Ambulatory Encounter Jenifer Hull [facility] UNK - Ambulatory Encounter Gabriella Edmondsierrez [facility] UNK - Ambulatory Encounter Patrizia Martel [facility] - Ambulatory Encounter Patrizia Martel [facility] UNK - Ambulatory Encounter Patrizia Martel [facility] UNK - Ambulatory Encounter Patrizia Rios [facility] UNK - Ambulatory Encounter Naida Tasha [facility] UNK - Ambulatory Encounter Naida Tasha [facility] UNK - Ambulatory Encounter Patrizia Martel [facility] UNK - Ambulatory Encounter Patrizia Elliottanda Tasha Batistassuri Rios [facility] UNK - Ambulatory Encounter [facility]isselle [facility] UNK - Ambulatory Encounter [facility]elle [facility] UNK - Ambulatory Encounter Patrizia Martel [facility] UNK - Ambulatory Encounter Patrizia Martel [facility] UNK - Ambulatory Encounter Patrizia Martel [facility] UNK - Ambulatory Encounter Patrizia Martel [facility] UNK - Ambulatory Encounter LSJ Lab Support Desktop Dedra Martel [facility] UNK - Ambulatory Encounter Patrizia Martel [facility] UNK - Ambulatory Encounter [facility] - Ambulatory Encounter Gisselle An [facility] UNK - Ambulatory Encounter Public Health Services Provider Freda Wren [facility] UNK - Ambulatory Encounter Patrizia Martel [facility] UNK - Ambulatory Encounter Patrizia Martel LinkLognitin [facility] UNK - Ambulatory Encounter LSJ Lab Support Desktop Dedra Martel [facility] UNK - Ambulatory Encounter Patrizia Martel [facility] UNK - Ambulatory Encounter Patrizia Martel [facility] UNK - Ambulatory Encounter [facility]rizia Ramirez [facility] UNK - Ambulatory Encounter Gisselel An [facility] UNK - Ambulatory Encounter Public Health Services Provider Freda Wren [facility] UNK - Ambulatory Encounter Patrizia Martel [facility] UNK - Ambulatory Encounter Patrizia MendezLognitin [facility] UNK - Ambulatory Encounter Gisselle An [facility] UNK - Ambulatory Encounter Public Health Services Provider Freda Wren [facility] UNK - Ambulatory Encounter LSJ Care Coordination Desktop Jennifer Waterman [facility] UNK - Ambulatory Encounter Patrizia Paredes MedAdherence [facility] UNK - Ambulatory Encounter Patrizia Martel [facility] UNK - Ambulatory Encounter Fax Status [facility] UNK - Ambulatory Encounter Fax Status LinkLog [facility] UNK - Ambulatory Encounter Fax Status [facility] UNK - Ambulatory Encounter Fax Status [facility] UNK - Ambulatory Encounter Fax Status [facility] UNK - Ambulatory Encounter Patrizia Martel [facility] UNK - Ambulatory Encounter Patrizia Waterman [facility] UNK - Ambulatory Encounter Josie Obregon [facility] UNK - Ambulatory Encounter Josie Obregon [facility] UNK - Ambulatory Encounter Viki Martel [facility] UNK - Ambulatory Encounter Gisselle Olivo [facility] UNK - Ambulatory Encounter Ashley Markham [facility] UNK - Ambulatory Encounter Patrizia Obregon [facility] Hemoccult positive stool - Ambulatory Encounter Patrizia Martel [facility] UNK - Ambulatory Encounter LSJ Lab Support Desktop Dedra Martel [facility] UNK - Ambulatory Encounter Mera Sullivan [facility] UNK - [facility] En[facility] Jesica Dee [facility] UNK - Ambulatory Encounter Patrizia Paredes [facility] UNK - Ambulatory Encounter Patrizia Martel [facility] UNK - Ambulatory Encounter Patrizia Martel [facility] UNK - Ambulatory Encounter Patrizia Martel [facility] UNK - Ambulatory Encounter LSJ Lab Support Desktop LinkLogic Patrizia Martel [facility] UNK - Ambulatory Encounter LSJ Lab Support Desktop LinkLogic Patrizia Martel [facility] UNK - Ambulatory Encounter [facility]rizia Paredes [facility] UNK - Ambulatory Encounter LSJ Lab Support Desktop LinkLogic Patrizia Martel [facility] UNK - Ambulatory Encounter Patrizia Martel [facility] UNK - Ambulatory Encounter Patrizia Yanes [facility] Annual examMammogram yearly screeningCandidal vaginitisDysuriaColon Cancer Screening - Ambulatory Encounter Gisselle An [facility] UNK - Ambulatory Encounter Patrizia Martel LinkDiaz [facility] UNK - Ambulatory Encounter Patrizia Martel [facility] UNK - Ambulatory Encounter Noemy [facility] UNK - Ambulatory Encounter Noemy [facility] UNK - Ambulatory [facility] UNK - Ambulatory Encounter Patrizia Martel [facility] UNK - Ambulatory Encounter Patrizia Martel [facility] UNK - Ambulatory Encounter Patrizia Manning [facility] UNK - Ambulatory Encounter Pinky Lechuga [facility] UNK - Ambulatory Encounter Pinky Alexandrea [facility] UNK - Ambulatory Encounter Patrizia Martel [facility] UNK - Ambulatory Encounter Patrizia [facility] Foot pain, left - Ambulatory Encounter Tomeka Martel [facility] UNK - Ambulatory Encounter Tomeka Martel [facility] UNK - Ambulatory Encounter Patrizia [facility] UNK - Ambulatory Encounter Patrizia Martel [facility] UNK - Ambulatory Encounter Mary Farias [facility] UNK - Ambulatory Encounter Patrizia Gay [facility] Obesity - Ambulatory Encounter Jensanket Farias [facility] UNK - Ambulatory Encounter Patrizia Martel [facility] UNK - Ambulatory Encounter Jen Farias [facility] UNK - Ambulatory Encounter Jen Farias [facility] UNK - Ambulatory Encounter Patrizia Martel [facility] UNK - Ambulatory Encounter Patrizia Ramon Jen Jarrett Jeannine Shirley [facility] UNK - Ambulatory Encounter Fax Status [facility] UNK - Ambulatory Encounter Fax Status [facility] UNK - Ambulatory Encounter Fax Status [facility] UNK - Ambulatory Encounter Patrizia Martel [facility] Hyperlipidemia - Ambulatory Encounter Patrizia Martel [facility] Diabetes mellitus, type II - Ambulatory Encounter Patrizia Martel [facility] UNK - Ambulatory Encounter LSJ Lab Support Desktop [facility] UNK - Ambulatory Encounter Patrizia Martel [facility] UNK - Ambulatory Encounter Patrizia Stewart [facility] HypertensionAllergic rhinitisBack painShortness of breath - Ambulatory Encounter Toshia Saez [facility] UNK - Ambulatory Encounter Pinky Lechuga [facility] UNK - Ambulatory Encounter Pinky Lechuga [facility] UNK - Ambulatory Encounter Jaylin Bills [facility] UNK - Ambulatory Encounter Jaylin Sanju [facility] UNK - Ambulatory Encounter Maria Shawn Simmons LinkLogic [facility] UNK - Ambulatory Encounter Adventism Preload LinkLogic [facility] UNK - Ambulatory Encounter Adventism Preload LinkLogic [facility] UNK - Ambulatory Encounter Adventism Preload LinkLogic [facility] UNK - Ambulatory Encounter Adventism Preload LinkLogic [facility] UNK - Ambulatory Encounter Adventism Preload LinkLogic [facility] UNK - Ambulatory Encounter Adventism Preload LinkLogic [facility] UNK - Ambulatory Encounter Adventism Preload LinkLogic [facility] UNK - Ambulatory Encounter Adventism Preload LinkLogic [facility] UNK - Ambulatory Encounter Adventism Preload LinkLogic [facility] UNK - Ambulatory Encounter Adventism Preload LinkLogic [facility] UNK - Ambulatory Encounter Adventism Preload LinkLogic [facility] UNK - Ambulatory Encounter Adventism Preload LinkLogic [facility] UNK - Ambulatory Encounter Adventism Preload LinkLogic [facility] UNK - Ambulatory Encounter Adventism Preload LinkLogic [facility] UNK - Ambulatory Encounter Adventism Preload LinkLogic [facility] UNK - Ambulatory Encounter Adventism Preload LinkLogic [facility] UNK - Ambulatory Encounter Adventism Preload LinkLogic [facility] UNK - Ambulatory Encounter Adventism Preload LinkLogic [facility] UNK - Ambulatory Encounter Adventism Preload LinkLogic [facility] [facility] UNK - Ambulatory Encounter Adventism Preload LinkLogic [facility] UNK - Ambulatory Encounter Adventism Preload LinkLogic [facility] [facility] UNK - Ambulatory Encounter Adventism Preload LinkLogic [facility] [facility] UNK - Ambulatory Encounter Adventism Preload LinkLogic [facility] [facility] UNK - Ambulatory Encounter Adventism Preload LinkLogic [facility] [facility] UNK - Ambulatory Encounter Adventism Preload LinkLogic [place] [facility] UNK - Ambulatory Encounter Adventism Preload LinkLogic [place] [facility] UNK - Ambulatory Encounter Adventism Preload LinkLogic [place] [facility] UNK - Ambulatory Encounter Adventism Preload LinkLogic [place] [facility] UNK - Ambulatory Encounter Adventism Preload LinkLogic [place] [facility] UNK - Ambulatory Encounter Adventism Preload LinkLogic [place] [facility] UNK - Ambulatory Encounter Adventism Preload LinkLogic [place] [facility] UNK - Ambulatory Encounter Adventism Preload LinkLogic [place] [facility] UNK - Ambulatory Encounter Adventism Preload LinkLogic [place] [facility] UNK - Ambulatory Encounter Adventism Preload LinkLogic [place] [facility] UNK - Ambulatory Encounter Adventism Preload LinkLogic [place] [facility] UNK - Ambulatory Encounter Adventism Preload LinkLogic [place] [facility] UNK - Ambulatory Encounter Adventism Preload LinkLogic [facility] [facility] UNK - Ambulatory Encounter Adventism Preload LinkLogic [place] [facility] UNK - Ambulatory Encounter Adventism Preload LinkLogic [facility] [facility] UNK - Ambulatory Encounter Adventism Preload LinkLogic [place] [facility] UNK - Ambulatory Encounter Adventism Preload LinkLogic [place] [facility] UNK - Ambulatory Encounter Adventism Preload LinkLogic [place] [facility] UNK - Ambulatory Encounter Adventism Preload LinkLogic [place] [facility] UNK - Ambulatory Encounter Adventism Preload LinkLogic [place] [facility] UNK - Ambulatory Encounter Adventism Preload LinkLogic [place] [facility] UNK - Ambulatory Encounter Adventism Preload LinkLogic [place] [facility] UNK - Ambulatory Encounter Adventism Preload LinkLogic [place] [facility] UNK - Ambulatory Encounter Adventism Preload LinkLogic [place] [facility] UNK - Ambulatory Encounter Adventism Preload LinkLogic [place] [facility] UNK - Ambulatory Encounter Adventism Preload LinkLogic [place] [facility] UNK - Ambulatory Encounter Adventism Preload LinkLogic [place] [facility] UNK - Ambulatory Encounter Adventism Preload LinkLogic [facility] UNK - Ambulatory Encounter Adventism Preload LinkLogic [facility] UNK - Ambulatory Encounter Adventism Preload LinkLogic [place] [facility] UNK - Ambulatory Encounter Adventism Preload LinkLogic [place] [facility] UNK - Ambulatory Encounter Adventism Preload LinkLogic [place] [facility] UNK - Ambulatory Encounter Adventism Preload LinkLogic [facility] UNK - Ambulatory Encounter Adventism Preload LinkLogic [place] [facility] UNK - Ambulatory Encounter Adventism Preload LinkLogic [facility] UNK - Ambulatory Encounter Adventism Preload LinkLogic [facility] UNK - Ambulatory Encounter Adventism Preload LinkLogic [facility] UNK - Ambulatory Encounter Adventism Preload LinkLogic [facility] UNK - Ambulatory Encounter Adventism Preload LinkLogic [facility] UNK - Ambulatory Encounter Adventism Preload LinkLogic [facility] UNK - Ambulatory Encounter Adventism Preload LinkLogic [facility] UNK - Ambulatory Encounter Adventism Preload LinkLogic [facility] UNK - Ambulatory Encounter Adventism Preload LinkLogic [place] [facility] UNK - Ambulatory Encounter Adventism Preload LinkLogic [place] [facility] UNK - Ambulatory Encounter Adventism Preload LinkLogic [facility] UNK - Ambulatory Encounter Adventism Preload LinkLogic [facility] UNK - Ambulatory Encounter Adventism Preload LinkLogic [facility] UNK - Ambulatory Encounter Adventism Preload LinkLogic [facility] UNK - Ambulatory Encounter Adventism Preload [facility] UNK - Ambulatory Encounter Adventism Preload [facility] UNK - Ambulatory Encounter Adventism Preload [facility] UNK - Ambulatory Encounter Adventism Preload [facility] UNK - Ambulatory Encounter Adventism Preload [facility] UNK - Ambulatory Encounter Adventism Preload [facility] UNK - Ambulatory Encounter Adventism Preload [facility] UNK - Ambulatory Encounter Adventism Preload [facility] UNK - Ambulatory Encounter Adventism Preload [facility] UNK VITAL SIGNS Date Observation Value Provider [...] pressure, systolic, second observation 150 mm[Hg] Gabriella Farleyrez " temperature E&M 98.4 [degF] Gabriella Farleyrez " pulse rate E&M 73 /min Gabriella Farleyrez " respiratory rate E&M 16 /min Gabriella Farleyrez " blood pressure, diastolic 91 mm[Hg] Gabriella Farleyrez " blood pressure, systolic 150 mm[Hg] Gabriella Farleyrez " oxygen saturation, oximetry 95 % Gabriella Farleyrez " weight E&M 223 lbs. Gabriella Rios " weight in kilograms E&M 101.36 kg Gabriella Farleyrez " height E&M 60.20 [in_i] Gabriella Rios " height in centimeters E&M 152.91 cm Gabriella Farleyrez " temperature site oral Gabriella Rogersz " method used to obtain blood pressure [...] Gabriella Rios " temperature E&M 98.1 [degF] Gabriellauri Rios " weight E&M 219.60 lbs. Gabriella Gabriel " weight in kilograms E&M 99.82 kg Gabriellauri Rios " height E&M 60.20 [in_i] Gabriella [...] " pulse rate E&M 77 /min Jennifer Ayush " temperature E&M 98.9 [degF] Jennifer Peacock [...] Gabriella Rios " weight E&M 219.40 lbs. Gabrielal Rios " weight in kilograms E&M 99.73 kg Gabriella Rios " height in centimeters E&M 152.91 cm Gabriella Rios " height E&M 60.2 [in_i] Gabriella Rios oxygen saturation, oximetry 98 % Teresa Gay " method used to obtain blood pressure automatic Teresa Gay " Blood Pressure Position 01 sitting Teresa Gay " blood pressure, site #1 right arm Teresa Agy " blood pressure, diastolic 96 mm[Hg] Teresa [...] method used to obtain blood pressure automatic Gbariella Rios " Blood Pressure Position 01 sitting Gabriella Rios " blood pressure, site #1 right arm Gabriella Gabriel " oxygen saturation, oximetry 97 % Gabriellauri Rios " blood pressure, diastolic 111 mm[Hg] Gabriellauri Rios " blood pressure, systolic 177 mm[Hg] Gabriellauri Rios " respiratory rate E&M 16 /min Gabriellauri Rios " pulse rate E&M 76 /min Gabriella Gabriel " temperature E&M 97.9 [degF] Gabriellauri Rios " height E&M 65.50 [in_i] Gabriellauri [...] A1C, blood, as % of total hemoglobin 8.9 % LinkLogic 4.8-5.6 High " microalbumin/creatinine ratio, urine 8 MG/G CREAT LinkLogic 0-29 " microalbumin/total urine volume 4.5 mg/L LinkLogic Not Estab. " creatinine, random, urine 56.8 mg/dL LinkLogic Not Estab. " LDL cholesterol, serum 92 mg/dL LinkLog[facility] 0-99 " very low density lipoproteins 24 mg/dL LinkLogic 5-40 " HDL cholesterol, serum 35 mg/dL [facility]Logic >39 Low " triglyceride, serum, fasting 120 mg/dL LinkLogic 0-149 " cholesterol, serum 151 mg/dL [facility] 100-199 " alanine aminotransferase (SGPT), serum 17 1/L [facility]Log[facility] 0-32 " aspartate aminotransferase (SGOT), serum 17 1/L [facility]Log[facility] 0-40 " alkaline phosphatase, serum 142 1/L [facility] 39-117 High " bilirubin, serum, total 0.3 mg/dL [facility]Log[facility] 0.0-1.2 " albumin/globulin ratio, serum 1.1 [employer]Log[facility] 1.2-2.2 Low " globulin, serum 3.5 LinkLogic 1.5-4.5 " albumin, serum 3.8 g/dL [employer]Log[facility] 3.8-4.9 " protein, total, serum 7.3 g/dL [employer]Log[facility] 6.0-8.5 " calcium, serum 9.1 mg/dL [employer] 8.7-10.2 " carbon dioxide, venous blood 23 mmol/L [employer]Log[facility] 20-29 " chloride, serum 105 mmol/L [employer]Log[facility] 96-106 " potassium, serum 4.1 mmol/L [employer]Log[facility] 3.5-5.2 " sodium, serum 144 mmol/L [employer]Log[facility] 134-144 " urea nitrogen/creatinine ratio, serum 12 [facility]Log[facility] 9-23 " eGFR if 90 mL/min/((173/100).m2) [facility] >59 " Estimated Glomerular Filtration Rate (calc) 78 mL/min/((173/100).m2) [facility]Logic >59 " creatinine, serum 0.84 mg/dL [facility] 0.57-1.00 " urea nitrogen, blood 10 mg/dL [facility] 6-24 " blood glucose, random 67 mg/dL [facility] 65-99 " immature granulocytes, percentage of total cells, blood 0 % [employer]Log[facility] Not Estab. " basophil count, absolute 0.0 x10E3/uL [facility]Log[facility] 0.0-0.2 " Eosinophil Absolute Count 0.2 X10E3/UL [facility]Log[facility] 0.0-0.4 " monocyte count, blood, automated 0.4 X10E3/UL [facility]Log[facility] 0.1-0.9 " lymphocyte count, blood, automated 2.5 X10E3/UL [facility]Log[facility] 0.7-3.1 " Absolute Neutrophils 5.1 X10E3/UL [facility]Log[facility] 1.4-7.0 " basophils as percent of blood leukocytes 0 % [employer]Log[facility] Not Estab. " eosinophils as percent of blood leukocytes 2 % [employer]Log[facility] Not Estab. " monocytes as percent of blood leukocytes 5 % [employer]Log[facility] Not Estab. " lymphocytes as percent of blood leukocytes 31 % [employer] Not Estab. " neutrophils as percent of blood leukocytes 62 % [employer]Log[facility] Not Estab. " platelet count 340 X10E3/UL [facility]Log[facility] 150-450 " red blood cell distribution width 14.8 % [facility] 11.7-15.4 " mean corpuscular hemoglobin concentration, RBC 29.8 G/DL [facility] 31.5-35.7 Low " mean corpuscular hemoglobin, RBC 25.5 pg [facility]Log[facility] 26.6-33.0 Low " mean corpuscular volume, RBC 86 fL [facility] 79-97 " hematocrit, blood 33.2 % [facility] 34.0-46.6 Low " hemoglobin, blood 9.9 g/dL [facility] 11.1-15.9 Low " erythrocyte (RBC) count 3.88 X10E6/UL [facility]Log[facility] 3.77-5.28 " leukocyte count, blood 8.3 X10E3/UL [facility]Log[facility] 3.4-10.8 blood glucose, 2 hours postprandial 207 mg/dL [...] 3.4-10.8 blood glucose, random 225 mg/dL Gabriella Farleyrez blood glucose, random 124 mg/dL Teresaus Martinra blood glucose, random 137 mg/dL [facility] thyroid stimulating hormone, serum 1.590 u[iU]/mL [...] VITRO STRIP check blood glucose once daily Ptarizia Martel ACCU-CHEK [place] PLUS w/Device KIT check [...] history E&M . Not homeless. Born in [facility]. City: [facility]. State: [place]. Employed full-time. [employer]. Highest education [...] history E&M . Not homeless. Born in [facility]. City: [facility]. State: [place]. Employed full-time. jes[employer]. Highest education [...] history E&M . Not homeless. Born in [facility]. City: [facility]. State: [place]. Employed full-time. jesus. Highest education [...] history E&M . Not homeless. Born in [facility]. City: [facility]. State: [place]. Employed full-time. jesus. Highest education [...] history E&M . Not homeless. Born in [facility]. City: [facility]. State: [place]. Employed full-time. [employer]. Highest education level: none-8th grade. Gender identity: Female. Gender of partner(s): male. Gabriella Rois " social history reviewed E&M reviewed today Gabriella Rios " passive cigarette smoke exposure No Gabriella Rios " smoking status former smoker Gabriella Gabriel Exercise Program Referral T Patrizia Martel " [...] history E&M . Not homeless. Born in [facility]. City: [facility]. State: [place]. Employed full-time. [employer]. Highest education [...] history E&M . Not homeless. Born in [facility]. City: [facility] [place]. State: [place]. Employed full-time. [employer]. Highest education level: none-8th grade. Gender identity: Female. Gender of partner(s): male. Gabriella Edmondsierrez " social history reviewed E&M reviewed today Gabriella Farleyrez " passive cigarette smoke exposure No Gabriella Rios " smoking status former smoker Gabriella Farleyrez drug use, illicit Never Teresa Gay " alcohol use Currently Teresa Gay " social history E&M . Not homeless. Born in [facility]. City: [facility] [place]. State: [place]. Employed full-time. [employer]. Highest education [...] history E&M . Not homeless. Born in [facility]. City: [facility] [place]. State: [place]. Employed full-time. [employer]. Highest education level: none-8th grade. Gender identity: Female. Gender of partner(s): male. Teresa Gay " social history reviewed E&M reviewed today Teresa Gay " passive cigarette smoke exposure No Teresa Gay " smoking status former smoker Teresa Gay sex at female Jeannine Shirley " social history E&M . Not homeless. Born in [facility]. City: [facility] [place]. State: [place]. Employed full-time. [employer]. Highest education [...] history E&M . Not homeless. Born in [facility]. City: [facility] [place]. State: [place]. Employed full-time. [employer]. Highest education level: none-8th grade. Gender identity: Female. Gender of partner(s): male. 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 No Gabriella Rios " drug use, illicit Never Gabriellauri Rios " alcohol use, frequency holidays/special occasions only Gabriella Rios " alcohol use Currently Gabriella Rios " social history reviewed E&M reviewed today Gabriella Rios " passive cigarette smoke exposure No Gabriellauri Rios " smoking status former smoker Gabriella Edmondsierrez smoking status Current some day smoker [employer] [...] assessment of judgment and insight E&M limited Patirzia Tahmina " mental status examination: orientation E&M [...] assessment of mood and affect E&M pleasant Patriziamelinda Martel " Generalized Anxiety Disorder Questionnaire [...] Anxiety Disorder Questionnaire - Question 2 0 Gabrilela Gabriel " Generalized Anxiety Disorder Questionnaire - [...] ID Expanded Primary Health Care [employer]ookie Other [id number] [employer] Medicare [id number] Sliding Fee - Cat 3 Commercial insurance company Expanded Primary Health Care [employer] Other [id number] Sliding Fee Scale Commercial insurance company [id number] ADVANCE DIRECTIVES No Information Available TREATMENT PLAN Date Name Microalb/Creat Ratio, Rand[facility] Ur Lipid Panel Comp. Metabolic Panel (14) CBC With Differential/Platelet Hemoglobin A1c Hemoglobin A1c Comp. Metabolic Panel (14) Urinalysis Complete w/reflex to Culture Gc/Ct/Trich Urinalysis Complete w/reflex to Culture RPR, Rfx Qn RPR/Confirm TP Pap w/HPV w rflx (30+) TSH Rfx on Abnormal to Free T4 FIT- Fecal immunoassay test HCV Antibody HIV 1/2 ANTIGEN/ANTIBODY, FOURTH GENERATION W/RFL Microalb/Creat Ratio, Randm Ur Hemoglobin A1c Lipid Panel Comp. Metabolic Panel (14) CBC With Differential/Platelet TSH Microalb/Creat Ratio, Randm Ur Hemoglobin A1c Lipid Panel Comp. Metabolic Panel (14) CBC With Differential/Platelet - l - Est Patient Exp Problem - 14328 Est Patient Exp Problem - 00212 Est Patient Exp Problem - 27912 Est Patient Exp Problem - 83065 General Patient Education Est Patient Exp Problem - 18532 Nurse/Nurse Coordinator Est Patient Well Exam (40 - 64 Yrs) - 17160 HEMOGLOBIN A1C - In House Glucose Stick Est Patient Exp Problem - 32399 Prescription Assistance (Non-HIV) Est Patient Exp Problem - 31699 Est Patient Exp Problem - 33443 Prescription Assistance Est Patient Exp Problem - 66752 Dental - Internal Vision New Patient Detailed - 00874 HISTORY OF PROCEDURES Procedure Date Procedure Name Provider Procedure Notes Status HEMOGLOBIN A1C - In House Patrizia Martel completed Glucose Stick Patrizia Martel completed GOALS No Information Available HEALTH CONCERNS No Information Available
[2019-09-04 14:10] VITALS: BP 131/74
== END | disposition home or self-care (01) ==
LOC: OR 09:53
PROVIDERS: ATTEND Internal Medicine Gastroenterology
DX: K29.50 Unspecified chronic gastritis without bleeding (principal); K44.9 Diaphragmatic hernia without obstruction or gangrene; R19.7 Diarrhea, unspecified; B96.81 Helicobacter pylori [H. pylori] as the cause of diseases classified elsewhere; E11.9 Type 2 diabetes mellitus without complications; I10 Essential (primary) hypertension; E78.5 Hyperlipidemia, unspecified; R19.5 Other fecal abnormalities; R06.02 Shortness of breath; Z01.810 Encounter for preprocedural cardiovascular examination; Z79.899 Other long term (current) drug therapy; Z79.4 Long term (current) use of insulin; Z68.41 Body mass index [BMI] 40.0-44.9, adult
CPT/HCPCS: 43239; 93005; J2250; J2704; J3010

== ENCOUNTER → 2020-09-09 | Day surgery (SDC) | payer OTHER ==
[2020-09-04 10:39] LABS: BASOPHILS % 0.8 % (0.0-1.0); EOSINOPHILS # (AUTO) 0.1 (0.0-0.4); EOSINOPHILS % 1.1 % (0.0-6.0); HEMATOCRIT 33.8 % (34.2-44.1); HEMOGLOBIN 10.8 g/dL (12.0-16.0); LYMPHOCYTES # (AUTO) 0.8 (1.0-3.2); LYMPHOCYTES % 17.5 % (18.0-39.1); MEAN CORPUSCULAR HEMOGLOBIN 32.5 pg (28-32); MEAN CORPUSCULAR VOLUME 101.8 fL (81-99); MONOCYTES # (AUTO) 0.4 (0.2-0.8); MONOCYTES % 7.6 % (4.4-11.3); NEUTROPHILS # (AUTO) 3.5 (2.1-6.9); NEUTROPHILS % 72.8 % (38.7-80.0); PLATELET COUNT 258 x10e3/uL (140-360); RED BLOOD COUNT 3.32 x10e6/uL (3.6-5.1); RED CELL DISTRIBUTION WIDTH 15.7 % (11.7-14.4)
[2020-09-04 11:22] LABS: ANION GAP 12.8 mmol/L (8-16); BLOOD UREA NITROGEN 10 mg/dL (7-26); BUN/CREATININE RATIO 13 (6-25); CALCIUM 9.2 mg/dL (8.4-10.2); CARBON DIOXIDE 22 mmol/L (22-29); CHLORIDE 110 mmol/L (98-107); EST GLOMERULAR FILTRATION RATE > 60 ML/MIN (60-); GLUCOSE 109 mg/dL (74-118); POTASSIUM 3.8 mmol/L (3.5-5.1); SODIUM 141 mmol/L (136-145)
[~2020-09-09] MED LIST changes: +ELIQUIS2.5 MG PO; -FENTANYL CITRATE/PF 100MCG/2 ML INJ ONE; +LIDOCAINE HCL 2% LOCAL INJ 5 ML SDV VIAL INJ ONE; +PROPOFOL IV EMULSION 10 MG/ML 20 ML VIAL ONE; -PROPOFOL IV EMULSION 10 MG/ML 50 ML VIAL ONE
[2020-09-09 11:35] VITALS: BP 137/81
== END | disposition home or self-care (01) ==
LOC: OR 08:08
PROVIDERS: ATTEND Internal Medicine Gastroenterology
DX: Z08 Encounter for follow-up examination after completed treatment for malignant neoplasm (principal); Z85.038 Personal history of other malignant neoplasm of large intestine; K58.9 Irritable bowel syndrome, unspecified; E78.5 Hyperlipidemia, unspecified; I10 Essential (primary) hypertension; E11.9 Type 2 diabetes mellitus without complications; I25.10 Atherosclerotic heart disease of native coronary artery without angina pectoris; Z88.1 Allergy status to other antibiotic agents; Z01.810 Encounter for preprocedural cardiovascular examination; Z01.812 Encounter for preprocedural laboratory examination; Z79.02 Long term (current) use of antithrombotics/antiplatelets; Z79.4 Long term (current) use of insulin; Z86.16 Personal history of COVID-19; Z86.718 Personal history of other venous thrombosis and embolism; Z90.49 Acquired absence of other specified parts of digestive tract
CPT/HCPCS: 36415 ×2; 45378; 80048; 82948; 85025; 93005; J2001; J2250; J2704

== ENCOUNTER → 2021-08-18 | Day surgery (SDC) | payer OTHER ==
[2021-08-14 13:19] LABS: BASOPHILS % 0.5 % (0.0-1.0); EOSINOPHILS # (AUTO) 0.1 (0.0-0.4); EOSINOPHILS % 1.1 % (0.0-6.0); HEMATOCRIT 37.1 % (34.2-44.1); HEMOGLOBIN 12.2 g/dL (12.0-16.0); LYMPHOCYTES # (AUTO) 1.8 (1.0-3.2); LYMPHOCYTES % 28.3 % (18.0-39.1); MEAN CORPUSCULAR HEMOGLOBIN 31.9 pg (28-32); MEAN CORPUSCULAR HGB CONC 32.9 g/dL (31-35); MEAN CORPUSCULAR VOLUME 96.9 fL (81-99); MONOCYTES # (AUTO) 0.4 (0.2-0.8); MONOCYTES % 5.6 % (4.4-11.3); NEUTROPHILS # (AUTO) 4.1 (2.1-6.9); NEUTROPHILS % 64.3 % (38.7-80.0); PLATELET COUNT 182 x10e3/uL (140-360); RED BLOOD COUNT 3.83 x10e6/uL (3.6-5.1); RED CELL DISTRIBUTION WIDTH 13.7 % (11.7-14.4)
[2021-08-14 13:29] LABS: INR 0.87; PROTHROMBIN TIME 12.5 seconds (11.9-14.5)
[2021-08-14 13:30] LABS: PARTIAL THROMBOPLASTIN TIME 27.5 seconds (23.8-35.5)
[2021-08-14 13:39] LABS: ALBUMIN 3.7 g/dL (3.5-5.0); ALBUMIN/GLOBULIN RATIO 0.9 (0.8-2.0); ANION GAP 15.7 mmol/L (8-16); CALCIUM 9.3 mg/dL (8.4-10.2); CREATININE, SERUM 0.83 mg/dL (0.57-1.11); POTASSIUM 3.7 mmol/L (3.5-5.1)
[~2021-08-18] MED LIST changes: +ASPIRIN81 MG PO; +LEVEMIR FL100 UNIT/1 SC
[2021-08-18 13:20] VITALS: BP 138/78
== END | disposition home or self-care (01) ==
LOC: OR 08:57
PROVIDERS: ATTEND Internal Medicine Gastroenterology
DX: I86.4 Gastric varices (principal); Z85.038 Personal history of other malignant neoplasm of large intestine; K29.70 Gastritis, unspecified, without bleeding; K21.9 Gastro-esophageal reflux disease without esophagitis; K44.9 Diaphragmatic hernia without obstruction or gangrene; Z98.0 Intestinal bypass and anastomosis status; Z71.3 Dietary counseling and surveillance; R16.0 Hepatomegaly, not elsewhere classified; K46.9 Unspecified abdominal hernia without obstruction or gangrene; E11.9 Type 2 diabetes mellitus without complications; I10 Essential (primary) hypertension; Z88.8 Allergy status to other drugs, medicaments and biological substances; Z88.1 Allergy status to other antibiotic agents; Z01.810 Encounter for preprocedural cardiovascular examination; Z01.812 Encounter for preprocedural laboratory examination; Z20.822 Contact with and (suspected) exposure to COVID-19; Z79.82 Long term (current) use of aspirin; Z79.4 Long term (current) use of insulin; Z79.02 Long term (current) use of antithrombotics/antiplatelets; Z79.899 Other long term (current) drug therapy; Z68.33 Body mass index [BMI] 33.0-33.9, adult; Z86.718 Personal history of other venous thrombosis and embolism
CPT/HCPCS: 36415 ×2; 43239; 45378; 80053; 82948; 85025; 85610; 85730; 93005; J2001; J2250; J2704; U0002

== ENCOUNTER → 2022-01-19 | Day surgery (SDC) | payer OTHER ==
[2022-01-15 13:07] LABS: BASOPHILS % 0.5 % (0.0-1.0); EOSINOPHILS # (AUTO) 0.1 (0.0-0.4); EOSINOPHILS % 1.4 % (0.0-6.0); HEMATOCRIT 38.4 % (34.2-44.1); HEMOGLOBIN 12.7 g/dL (12.0-16.0); LYMPHOCYTES # (AUTO) 1.9 (1.0-3.2); LYMPHOCYTES % 32.8 % (18.0-39.1); MEAN CORPUSCULAR HEMOGLOBIN 31.8 pg (28-32); MEAN CORPUSCULAR HGB CONC 33.1 g/dL (31-35); MEAN CORPUSCULAR VOLUME 96.2 fL (81-99); MONOCYTES # (AUTO) 0.4 (0.2-0.8); MONOCYTES % 6.4 % (4.4-11.3); NEUTROPHILS # (AUTO) 3.4 (2.1-6.9); NEUTROPHILS % 58.6 % (38.7-80.0); PLATELET COUNT 175 x10e3/uL (140-360); RED BLOOD COUNT 3.99 x10e6/uL (3.6-5.1); RED CELL DISTRIBUTION WIDTH 12.8 % (11.7-14.4)
[2022-01-15 13:17] LABS: INR 0.97; PARTIAL THROMBOPLASTIN TIME 25.8 seconds (23.8-35.5); PROTHROMBIN TIME 13.8 seconds (11.9-14.5)
[2022-01-15 13:25] LABS: ALBUMIN 3.3 g/dL (3.5-5.0); ALBUMIN/GLOBULIN RATIO 0.8 (0.8-2.0); ANION GAP 14.1 mmol/L (8-16); CALCIUM 8.6 mg/dL (8.4-10.2); CREATININE, SERUM 0.98 mg/dL (0.57-1.11); POTASSIUM 4.1 mmol/L (3.5-5.1)
[~2022-01-19] MED LIST changes: +ALBUTEROL0.63 MG/3 NEB; +FENOFIBRATE145 MG PO; -LIDOCAINE HCL 2% LOCAL INJ 5 ML SDV VIAL INJ ONE; +METOPROLOL SUCC50 MG PO; +NIFEDIPINE ER30 M1 PO; +PANTOPRAZOLE SO40 MG PO; +POVIDONE IODINE 0.05% 0.05 % ML PO ONE
[2022-01-19 10:50] VITALS: BP 153/87
== END | disposition home or self-care (01) ==
LOC: OR 08:22
PROVIDERS: ATTEND Internal Medicine Gastroenterology
DX: I86.4 Gastric varices (principal); K29.70 Gastritis, unspecified, without bleeding; K21.9 Gastro-esophageal reflux disease without esophagitis; K44.9 Diaphragmatic hernia without obstruction or gangrene; E11.9 Type 2 diabetes mellitus without complications; I10 Essential (primary) hypertension; Z88.1 Allergy status to other antibiotic agents; Z88.8 Allergy status to other drugs, medicaments and biological substances; Z01.810 Encounter for preprocedural cardiovascular examination; Z01.812 Encounter for preprocedural laboratory examination; Z20.822 Contact with and (suspected) exposure to COVID-19; Z79.4 Long term (current) use of insulin; Z79.899 Other long term (current) drug therapy; Z68.35 Body mass index [BMI] 35.0-35.9, adult; Z85.038 Personal history of other malignant neoplasm of large intestine
CPT/HCPCS: 0223U; 36415 ×2; 43239; 80053; 82948; 85025; 85610; 85730; 93005; J2250; J2704; 43255